=== PATIENT | female | born 1955 | race African-American/Black ===

== ENCOUNTER → 2016-05-30 | Day surgery (SDC) | payer MEDICARE, OTHER ==
--- NOTE | 2016-05-25 14:34 | Pre-Procedure Note/Attestation ---
Pre-Procedure Note/Attestation Complete Prior to Procedure Planned Procedure: bilateral Procedure Narrative: 1- Ptosis correction, upper lids 2- Entropion correction upper lids 3- Blepharoplasty, upper lids Indications for Procedure Pre-Operative Diagnosis: 1- Ptosis ,upper lids 2- Entropion, upper lids 3- Blepharochalasis and dermatochalasis upper lids Attestation I attest that I discussed the nature of the procedure; its benefits; risks and complications; and alternatives (and the risks and benefits of such alternatives ), prior to the procedure, with the patient (or the patient's legal front office representative). I attest that, if there was a reasonable possibility of needing a blood transfusion, the patient (or the patient's legal front office representative) was given the [facility] standardized written summary, pursuant to the Alvaro Allison Blood Safety Act ([place] Health and Safety Code # 1645, as amended). I attest that I re-evaluated the patient just prior to the surgery and that there has been no change in the patient's H&P, except as documented below: ISSAC ALEXANDRA May 25, 2016 14:34
[2016-05-30] VITALS (13 sets, daily range): BP systolic 139–175; BP diastolic 92–121
[~2016-05-30] VITALS: Ht 165.1 cm; Wt 63.5 kg
[~2016-05-30] MED LIST: AMITRIPTYLINE100 MG ORAL; ATIVAN1 MG ORAL; Akten 3.5% 1ml Btl BOTH EYES ONE; Akten 3.5% 1ml Btl ONE; B-12500 MC1 PO; BENICAR40 MG ORAL; BISACODYL5 MG ORAL; Bupivacaine 0.75% 30ml vial INJ ONE; CALCIUM 500-VI1 EACH PO; CYCLOBENZAPRINE10 MG ORAL; CYMBALTA30 MG ORAL; DiphenhydrAMINE 50mg/ml Inj IVP PRN; DiphenhydrAMINE 50mg/ml Inj ONE; FERROUS SULFAT325 MG ORAL; GABAPENTIN300 MG ORAL; HYDROCHLOROTHIA25 MG ORAL; LEXAPRO10 MG ORAL; LR 1000ml 1,000 ML IVLG SCH; Labetalol 5mg/ml 20ml vial IV PRN; Lidocaine 1% MPF 10mg/ml 5ml ONE; Lidocaine 2% 20mg/ml/Epi 0.005mg/ml 20ml vial ONE; MULTIVITAMINS1 EAC2 ORAL; Maxitrol Opth Oint 3.5gm BOTH EYES ONE; Midazolam 2mg/2ml Inj IVP ONE; Midazolam 2mg/2ml Inj ONE; NS Irrig 1000ml ONE; Norco 5mg/325mg tab ORAL ONE; PRILOSEC10 M1 ORAL; Povidone-Iodine 5% opth solution ONE; Propofol 10mg/ml 20ml IV ONE; Sterile Water Irrig 1000ml IRRIG ONE; TRAMADOL HCL50 MG ORAL; Tetracaine 0.5% Opth Soln ONE; Tobradex Opth Oint 3.5gm ONE; XYLOCAINE CUTAN; ZOLPIDEM TARTRA10 MG ORAL; fentaNYL 100 mcg/2 mL IV ONE; vitamin b 12 PO
--- NOTE | 2016-05-30 07:49 | Anethesia Preoperative Eval ---
Anesthesia Pre-op PMH/ROS General Date of Evaluation: May 30, 2016 Anesthesiologist: Alexys ASA Score: ASA 2 Mallampati Score Class I : Soft palate, uvula, fauces, pillars visible Class II: Soft palate, uvula, fauces visible Class III: Soft palate, base of uvula visible Class IV: Only hard plate visible Mallampati Classification: Class II Surgeon: Sandrita Diagnosis: Bilateral eyelid ptosis Surgical Procedure: Bilateral blepharoplasty Anesthesia History: none Social History: current smoker, alcohol use - h/o abuse, now resolved, drug use - h/o abuse now resolved Family History: no anesthesia problems Allergies: Coded Allergies: No Known Allergies (Unverified , 01/17/16) Medications: see eMAR Past Medical History Cardiovascular: Reports: HTN, Denies: CAD, [place], arrhythmia, other, valve dz Pulmonary: Denies: COPD, VALERIO, asthma, other Gastrointestinal/Genitourinary: Reports: GERD - gasstritis, Denies: CRI, ESRD, other Neurologic/Psychiatric: Reports: depression/anxiety, other - bipolar, Denies: CVA, TIA, dementia Endocrine: Denies: DM, hypothyroidism, other, steroids HEENT: Denies: SKAGWAY (L), SKAGWAY (R), cataract (L), cataract (R), glaucoma, other Hematology/Immune: Reports: anemia - chronic, Denies: DVT, bleeding disorder, other Musculoskeletal/Integumentary: Denies: DDD, DJD, OA, RA, edema, other PSxH Narrative: nose sx, T&A, lap mana, BSO, Left THR Anesthesia Pre-op Phys. Exam Physician Exam see chart Constitutional: other - anxious, crying Cardiovascular: RRR Respiratory: CTA Airway Exam Mallampati Score: Class II ROM: full Anesthesia Pre-op A/P Labs see chart Studies Pre-op Studies: EKG - sr Risk Assessment & Plan Assessment: ASA II Plan: MAC Status Change Before Surgery: No Pre-Antibiotics Drug: N/A MEGAN VILLATORO M.D. May 30, 2016 07:49
--- NOTE | 2016-05-30 08:36 | Immediate Post-Op Evaluation ---
Immediate Post-Op Evalulation Immediate Post-Op Evalulation Procedure: Bilateral blepharoplasty Date of Evaluation: May 30, 2016 Time of Evaluation: 13:26 IV Fluids: 700 Blood Products: 0 Estimated Blood Loss: 0 Urinary Output: 0 Blood Pressure Systolic: 161 Blood Pressure Diastolic: 97 Pulse Rate: 71 Respiratory Rate: 16 O2 Sat by Pulse Oximetry: 100 Temperature (Fahrenheit): 97.1 Pain Score (1-10): 0 Nausea: No Vomiting: No Complications 0 Patient Status: awake, reacts, patent, none Hydration Status: adequate Drug: N/A MEGAN VILLATORO M.D. May 30, 2016 08:36
--- NOTE | 2016-05-30 08:37 | 48 Hour Post Anesthesia Eval ---
Post Anesthesia Evaluation Procedure: Bilateral blepharoplasty Date of Evaluation: May 30, 2016 Blood Pressure Systolic: 159 0: 101 Pulse Rate: 70 Respiratory Rate: 16 O2 Sat by Pulse Oximetry: 100 Airway: patent Nausea: No Vomiting: No Pain Intensity: 0 Hydration Status: adequate Cardiopulmonary Status: at baseline Mental Status/LOC: patient returned to baseline Post-Anesthesia Complications: 0 Follow-up care needed: ready to discharge MEGAN VILLATORO M.D. May 30, 2016 08:37
--- NOTE | 2016-05-30 13:27 | Brief Operative Note ---
Immediate Post Operative Note Operative Note Chief Complaint: Droopy eyelids difficulty driving and tearing Pre-op Diagnosis: 1- Ptosis ,upper lids 2- Entropion, upper lids 3- Blepharochalasis and dermatochalasis upper lids Procedure: 1- Ptosis correction upper lids 2- Entropion correction upper lids 3- Blepharoplasty upper lids 4- Ectropion correction, lower lids Surgeon: Issac Remy MD. Railroad Car Letterer: None Additional Surgeons: None Anesthesiologist: Dr. Rosa Anesthesia: local, MAC Specimen: none Complications: none Condition: stable Estimated Blood Loss: minimal Drains: none Implant(s) used?: ISSAC Allen May 30, 2016 13:27
--- NOTE | 2016-05-31 03:07 | Discharge Summary ---
DATE OF ADMISSION: 05/30/2016 DATE OF DISCHARGE: 05/30/2016 REASON FOR HOSPITALIZATION: 1. Ptosis, upper lids. 2. Entropion, upper lids. 3. Dermatochalasis, upper lids. 4. Ectropion, lower lids. SURGERY PERFORMED: 1. Ptosis correction, upper lids. 2. Entropion correction, upper lids. 3. Blepharoplasty, upper lids. 4. Ectropion correction, lower lids. HOSPITAL COURSE AND TREATMENT: The patient tolerated the surgery without complications. DISCHARGE CONDITION: The patient was stable at discharge. DISCHARGE MEDICATIONS: 1. TobraDex eyedrops one drop q.i.d., both eyes. 2. Maxitrol eye ointment apply to the wound. 3. Keflex 500 mg one p.o. q.8 hours. 4. Vicodin 5 mg/300 mg one tablet p.o. q.6 hours for pain. POSTOPERATIVE ORDERS: The patient has to rest at home. No bending. No lifting. No watching TV tonight. POSTOPERATIVE FOLLOWUP: The patient will be followed in the office tomorrow morning at 9 o'clock. Charlie Remy M.D. DR: HERMINIO JOB#: [id number] CC:
--- NOTE | 2016-05-31 04:18 | Operative Note - Dictated ---
DATE OF OPERATION: 05/30/2016 FACILITY: [facility]. SURGEON: Charlie Remy M.D. JOB ANALYST: None. ANESTHESIOLOGIST: Dr. oRsa. ANESTHESIA: Monitored anesthesia care (MAC) plus local anesthesia with lidocaine 2% in both eyes. PREOPERATIVE DIAGNOSES: 1. Ptosis upper lids, both eyes. 2. Entropion upper lids, both eyes. 3. Dermatochalasis upper lids, both eyes. 4. Ectropion lower lids, both eyes. POSTOPERATIVE DIAGNOSES: 1. Ptosis upper lids, both eyes. 2. Entropion upper lids, both eyes. 3. Dermatochalasis upper lids, both eyes. 4. Ectropion lower lids, both eyes. SURGERY PERFORMED: 1. Ptosis repair, upper lids. 2. Entropion repair, upper lids. 3. Blepharoplasty, upper lids. 4. Lowe lid ectropion correction in both eyes. INDICATION FOR SURGERY: The patient is a 61-year-old lady with history of cataracts and history of Barrette's esophagus, gallstone, hypertension, malnutrition, anemia, vitamin D deficiency, lipid function, severe malnutrition, status post TPN, anxiety and depression. Social history including the patient is not smoking now but patient was smoking in the past. As I mentioned, the patient's surgical history laparoscopic cholecystectomy, total hip replacement in 2005 2007, gastric bypass and cholelithiasis. 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 Denies any tobacco products or drugs, but drinks two glasses of wine daily. She also takes Lexapro, lisinopril, lorazepam, Ambien, multivitamins, Lantus 300 mg, Norvasc, probiotic, tramadol, trazodone, vitamin B12 and vitamin C. She is complaining of droopy eyelids and upper lid hooding. She is complaining of difficulty driving because of upper lid droopiness and because of entropion of the lower lids. She is suffering from CVA, dermatochalasis, and entropion upper lids and also she has ectropion of lower lids. These problems positive dermatochalasis of skin disease with resulting changes of corneal curvature, which induces astigmatism and also cognitive of visual axis, which is interrupting her driving. The entropion of lower lids causes corneal exposure and corneal ulcer in the severity of the patient with dermatochalasis symptoms, entropion and ectropion all have clearly demonstrated . The only solution for this patient . There is no alternative for that. INFORMED CONSENT: The nature of the surgery, risks, benefits, alternatives, and potential complications were explained in detail to the patient. The potential complications including, but not limited to bleeding, infection, corneal exposure, over correction, under correction, swelling of the face, hematoma, dry eye syndrome, loss of eyelashes, loss of eyesight, loss of eyebrows, inequality of both eyes, change in vision, even loss of vision, and loss of the eye were all explained in detail to the patient. The patient voiced understanding and accepted all the complications. Then, she signed the consent form, which is in the chart. Description Of Surgery And Findings: Following that, the patient was taken to the operation room in a stable condition. Lidocaine gel 3.5% Akten was applied to the conjunctiva of both eyes. Following that, the upper lids were marked with a marking pen 10 mm above the root of the eyelashes and 10 mm below the lower part of the eyebrows. the skin was left to facilitate eye closure. IV sedation was given by the anesthesiologist, Dr. Rosa. After adequate anesthesia had been achieved, the upper lids as well as lower lids all were anesthetized with 2% lidocaine with epinephrine 1:100,0000. Following that, using a Bovie knife, the skin and subdermal tissue were dissected from the nucleus of the muscle and excised. A cuts were made into the orbicularis oculi muscle. The two fat compartment was free. The medial fat compartment was removed and temporal compartment was sculptured conservatively. Following that, the levator palpebrae superioris muscle was dissected through the aponeurosis of the muscle. The aponeurosis of the muscle was tacked about 4 mm in each side and stitched with 6-0 suture in each side. Then, the palpebral fissure was compared and both were equal. Following that, the 6-0 Vicryl were stitched and the suture was closed. Following that, a wedge groove was made 3 mm above the root of the upper eyelid lashes. Following that, plate was inside the groove was removed with a Vannas scissor. Following that, the lids of the groove was stitched with 6-0 Vicryl and border of the eyelid was rotated upward and lashes were turned from downwards to upwards. The orbicularis oculi muscle was then freed and hemostasis was performed and all the stitches were . Following that, the lower lid was anesthetized with 2% lidocaine. Following that, a keratotomy was performed in both sides. Following that, in each side with 6-0 Vicryl. Following that, the skin was stitched in the upper lid and lower lid with 6-0 Vicryl . The patient tolerated the surgery without complications. At the end of the surgery, the wound was covered with TobraDex ointment and applied to the cornea. Following that, the patient was transferred to the recovery room. In the recovery room, cold compress was applied to the wound. The wound was checked for bleeding. There was no bleeding. Postoperative orders and directions were given to the patient. The patient will be discharged home upon stabilization. The patient will be followed in my office tomorrow morning at 9:00. Charlie Remy M.D. DR: HERMINIO JOB#: [id number] CC:
== END | disposition home or self-care (01) ==
LOC: SUR 08:21
DX: H02.403 Unspecified ptosis of bilateral eyelids (principal); H02.034 Senile entropion of left upper eyelid; H02.031 Senile entropion of right upper eyelid; H02.834 Dermatochalasis of left upper eyelid; H02.831 Dermatochalasis of right upper eyelid; H02.132 Senile ectropion of right lower eyelid; H02.135 Senile ectropion of left lower eyelid; I10 Essential (primary) hypertension; F32.9 Major depressive disorder, single episode, unspecified; F41.9 Anxiety disorder, unspecified; D64.9 Anemia, unspecified; E55.9 Vitamin D deficiency, unspecified; K22.70 Barrett's esophagus without dysplasia; K21.9 Gastro-esophageal reflux disease without esophagitis; K29.70 Gastritis, unspecified, without bleeding; E43 Unspecified severe protein-calorie malnutrition; Z98.84 Bariatric surgery status; Z87.891 Personal history of nicotine dependence; Z96.649 Presence of unspecified artificial hip joint; Z90.49 Acquired absence of other specified parts of digestive tract
CPT/HCPCS: 15823; 67917; 67924; J0690; J1200; J2250; J2704; J3010; J3490; 94003; 94150

== ENCOUNTER 2019-01-22 13:40 | Outpatient (CLI) | payer MEDICARE, OTHER ==
[~2019-01-22 13:40] MED LIST changes: -Akten 3.5% 1ml Btl BOTH EYES ONE; -Akten 3.5% 1ml Btl ONE; -Bupivacaine 0.75% 30ml vial INJ ONE; -DiphenhydrAMINE 50mg/ml Inj IVP PRN; -DiphenhydrAMINE 50mg/ml Inj ONE; -LR 1000ml 1,000 ML IVLG SCH; -Labetalol 5mg/ml 20ml vial IV PRN; -Lidocaine 1% MPF 10mg/ml 5ml ONE; -Lidocaine 2% 20mg/ml/Epi 0.005mg/ml 20ml vial ONE; -Maxitrol Opth Oint 3.5gm BOTH EYES ONE; -Midazolam 2mg/2ml Inj IVP ONE; -Midazolam 2mg/2ml Inj ONE; -NS Irrig 1000ml ONE; -Norco 5mg/325mg tab ORAL ONE; -Povidone-Iodine 5% opth solution ONE; -Propofol 10mg/ml 20ml IV ONE; -Sterile Water Irrig 1000ml IRRIG ONE; -Tetracaine 0.5% Opth Soln ONE; -Tobradex Opth Oint 3.5gm ONE; -fentaNYL 100 mcg/2 mL IV ONE
[2019-01-22 14:34] LABS: BASOPHILS % (AUTO) 0.8 % (0.0-2.0); EOSINOPHILS % (AUTO) 0.2 % (0.0-3.0); HEMATOCRIT 37.4 % (37.0-47.0); HEMOGLOBIN 11.9 G/DL (12.0-16.0); LYMPHOCYTES % (AUTO) 16.8 % (20.0-45.0); MEAN CORPUSCULAR VOLUME 92 FL (80-99); MONOCYTES % (AUTO) 8.8 % (1.0-10.0); NEUTROPHILS % (AUTO) 73.4 % (45.0-75.0); PLATELET COUNT 187 K/UL (150-450); RED BLOOD COUNT 4.07 M/UL (4.20-5.40); RED CELL DISTRIBUTION WIDTH 14.1 % (11.6-14.8); WHITE BLOOD COUNT 6.9 K/UL (4.8-10.8)
[2019-01-22 14:39] LABS: INR 1.1 (0.9-1.1)
[2019-01-22 14:42] LABS: ALANINE AMINOTRANSFERASE 17 U/L (12-78); ALBUMIN 3.4 G/DL (3.4-5.0); ALBUMIN/GLOBULIN RATIO 1.1 (1.0-2.7); ALKALINE PHOSPHATASE 90 U/L (46-116); ANION GAP 8 mmol/L (5-15); ASPARTATE AMINO TRANSFERASE 24 U/L (15-37); BILIRUBIN,TOTAL 0.7 MG/DL (0.2-1.0); BLOOD UREA NITROGEN 10 mg/dL (7-18); CALCIUM 9.1 MG/DL (8.5-10.1); CARBON DIOXIDE 27 MMOL/L (21-32); CHLORIDE 110 MMOL/L (98-107); CREATININE 1.1 MG/DL (0.55-1.30); PHOSPHORUS 3.9 MG/DL (2.5-4.9); POTASSIUM 3.7 MMOL/L (3.5-5.1); SODIUM 145 MMOL/L (136-145)
[2019-01-22 14:46] LABS: APPEARANCE,URINE CLEAR; BILIRUBIN, URINE NEGATIVE (NEGATIVE); COLOR,URINE PALE YELLOW; GLUCOSE, URINE (UA) NEGATIVE (NEGATIVE); KETONES,URINE NEGATIVE (NEGATIVE); LEUKOCYTE ESTERASE ,URINE NEGATIVE (NEGATIVE); NITRITE,URINE NEGATIVE (NEGATIVE); PH,URINE 5 (4.5-8.0); PROTEIN,URINE NEGATIVE (NEGATIVE); UROBILINOGEN,URINE NORMAL MG/DL (0.0-1.0)
--- NOTE | 2019-01-22 16:02 | Diagnostic Imaging Report ---
Indication: Dyspnea Comparison: None 2 views of the chest obtained. Findings: No definite infiltrate or pulmonary vascular congestion identified. The heart is borderline enlarged. The aorta is mildly enlarged consistent with atherosclerotic vascular disease. The bones are osteopenic. Extensive surgical clips noted in the upper abdomen. Impression: No acute disease
== END 2019-01-22 15:40 | disposition home or self-care (01) ==
LOC: RAD 13:40
DX: Z01.818 Encounter for other preprocedural examination (principal); R06.00 Dyspnea, unspecified; M85.80 Other specified disorders of bone density and structure, unspecified site
CPT/HCPCS: 36415; 71046; 80053; 81001; 83735; 84100; 85025; 85610; 85730; 87081; 87086

== ENCOUNTER 2019-02-25 05:10 | Inpatient (IN) | payer MEDICARE, OTHER ==
[~2019-02-25] VITALS: Ht 167.6 cm; Wt 68.5 kg
[2019-02-25] VITALS (13 sets, daily range): BP systolic 105–134; BP diastolic 73–94
[~2019-02-25 05:10] MED LIST changes: +ACETAMINOPHEN-1 EAC1 ORAL; +AVAPRO75 MG ORAL; +BUPROPION HCL75 MG PO; +NEXIUM40 MG ORAL; +QUESTRAN POWDER4 GM ORAL; +SYSTANE COMPLET10 ML OP; +VIIBRYD20 MG PO; +VIT PO; +ZYRTEC10 MG ORAL
[2019-02-25] MEDS ORDERED: ceFAZolin 1gm IVPB IVPB ONE ×2 (06:00)
[2019-02-25] MEDS ORDERED: celeBREX 200mg Cap **SURGERY PATIENTS ONLY ORAL ONE (06:00)
[2019-02-25] MEDS ORDERED: oxyCONTIN 20mg tab ORAL ONE (06:00)
[2019-02-25] MEDS ORDERED: EPINEPHrine 1mg/1ml Amp ONE (06:56)
[2019-02-25] MEDS ORDERED: Bupivacaine 0.5% Inj 30 ml vial INJ ONE (06:56)
[2019-02-25] MEDS ORDERED: cloNIDine 1000mcg/10ml inj ONE (06:56)
[2019-02-25] MEDS ORDERED: Atropine Sulfate 0.4mg/ml inj IVP PRN (07:00)
[2019-02-25] MEDS ORDERED: LR 1000ml 1,000 ML IVLG SCH (07:00)
[2019-02-25] MEDS ORDERED: Ketorolac 30mg Inj IV PRN ×2 (07:00)
[2019-02-25] MEDS ORDERED: Meperidine 50mg/ml Inj(FOR RIGORS ONLY) IVP PRN (07:00)
[2019-02-25] MEDS ORDERED: LORazepam Inj 2mg/ml 1ml IV PRN (07:00)
[2019-02-25] MEDS ORDERED: fentaNYL 100 mcg/2 mL IV PRN (07:00)
[2019-02-25] MEDS ORDERED: HYDROcodone/Acetamin 7.5/325 tab ORAL PRN ×2 (07:00→08:00)
[2019-02-25] MEDS ORDERED: Hydromorphone 0.5mg/0.5ml inj IVP PRN (07:00)
[2019-02-25] MEDS ORDERED: Metoclopramide 10mg/2ml Inj IVP PRN (07:00)
[2019-02-25] MEDS ORDERED: HYDROcodone/Acetamin 5/325 tab ORAL PRN (07:00)
[2019-02-25] MEDS ORDERED: Midazolam 2mg/2ml Inj IVP PRN (07:00)
[2019-02-25] MEDS ORDERED: DiphenhydrAMINE 50mg/ml Inj IVP PRN (07:00)
[2019-02-25] MEDS ORDERED: oxyCODONE HCL/Acetaminophen 5/325mg ORAL PRN (07:00)
[2019-02-25] MEDS ORDERED: Labetalol 5mg/ml 20ml vial IV PRN (07:00)
--- NOTE | 2019-02-25 07:07 | Anethesia Preoperative Eval ---
Anesthesia Pre-op PMH/ROS General Date of Evaluation: Feb 25, 2019 Time of Evaluation: 07:41 Anesthesiologist: Jessica ASA Score: ASA 3 Mallampati Score Class I : Soft palate, uvula, fauces, pillars visible Class II: Soft palate, uvula, fauces visible Class III: Soft palate, base of uvula visible Class IV: Only hard plate visible Mallampati Classification: Class II Surgeon: Lola Diagnosis: R Knee Pain Surgical Procedure: R Knee total Arthroplasty Anesthesia History: none Family History: no anesthesia problems Allergies: Coded Allergies: No Known Allergies (Unverified , 01/17/16) Medications: see eMAR Patient NPO?: Yes NPO Date: Feb 24, 2019 NPO Time: 1999 Past Medical History Cardiovascular: Reports: HTN Gastrointestinal/Genitourinary: Reports: GERD, other - Hiatal Hernia Neurologic/Psychiatric: Reports: other - Bipolar HEENT: Reports: cataract (L), cataract (R) Hematology/Immune: Reports: anemia PSxH Narrative: Laparoscopic Cholecystectomy, Cataracts, L CHARU, B Ovary Sx Anesthesia Pre-op Phys. Exam Physician Exam Last Vital Signs Date Time Temp Pulse Resp B/P (MAP) Pulse Ox O2 Delivery O2 Flow Rate FiO2 02/25/19 05:56 Room Air 02/25/19 05:42 97.7 84 18 134/94 (107) 97 Constitutional: NAD Neurologic: CN 2-12 intact Cardiovascular: RRR Respiratory: CTA Gastrointestinal: S/NT/ND Airway Exam Mallampati Score: Class II MO: full ROM: full Teeth: missing, intact Anesthesia Pre-op A/P Risk Assessment & Plan Assessment: ASA 3 Plan: GA, Spinal ,SED Status Change Before Surgery: No Pre-Antibiotics Dru Grams Ancef IV Given Within 1 Hr of Incision: No Time Given: 08:16 Rod Lopez MD Feb 25, 2019 07:07
--- NOTE | 2019-02-25 07:09 | Immediate Post-Op Evaluation ---
Immediate Post-Op Evalulation Immediate Post-Op Evalulation Procedure: R Knee total Arthroplasty Date of Evaluation: Feb 25, 2019 Time of Evaluation: 10:38 IV Fluids: 500 LR Blood Products: 0 Estimated Blood Loss: 50 Urinary Output: 200 Blood Pressure Systolic: 111 Blood Pressure Diastolic: 76 Pulse Rate: 83 Respiratory Rate: 16 O2 Sat by Pulse Oximetry: 100 Temperature (Fahrenheit): 97.5 Pain Score (1-10): 1 Nausea: No Vomiting: No Complications 0 Patient Status: awake, reacts, patent, none Hydration Status: adequate Dru Grams Ancef IV Given Within 1 Hr of Incision: Yes Time Given: 08:16 Rod Lopez MD Feb 25, 2019 07:08
[2019-02-25] MEDS ORDERED: Alfentanil 2ml Inj ONE (07:11)
[2019-02-25] MEDS ORDERED: Lidocaine 1% MPF 10mg/ml 5ml ONE (07:12)
[2019-02-25] MEDS ORDERED: Sodium Chloride 10ml vial INJ ONE (07:12)
[2019-02-25] MEDS ORDERED: Propofol 200mg/20ml IV ONE (07:12)
[2019-02-25] MEDS ORDERED: Dexamethasone 4mg/ml vial ONE (07:12)
[2019-02-25] MEDS ORDERED: Bacitracin 50000 Units Vial ONE (07:20)
[2019-02-25] MEDS ORDERED: Tranexamic Acid 100 ML IVPB ONE (07:30)
[2019-02-25] MEDS ORDERED: HYDROmorphone 1mg/ml Carpuject SUBQ PRN (08:00)
[2019-02-25] MEDS ORDERED: NS Irrig 1000ml ONE (08:00)
[2019-02-25] MEDS ORDERED: Sterile Water For Irrig 2000ml IRRIG ONE (08:00)
[2019-02-25] MEDS ORDERED: Sterile Water Irrig 1000ml IRRIG ONE (08:00)
[2019-02-25] MEDS ORDERED: LR 1000ml ONE (08:00)
[2019-02-25] MEDS ORDERED: NS Irrig 2000ml IRRIG ONE (08:00)
[2019-02-25] MEDS ORDERED: Milk of Magnesia 30ml Ud ORAL PRN (08:00)
--- NOTE | 2019-02-25 08:00 | Pre-Procedure Note/Attestation ---
Pre-Procedure Note/Attestation Complete Prior to Procedure Planned Procedure: right Procedure Narrative: rt total knee arthroplasty Indications for Procedure Pre-Operative Diagnosis: rt knee arthritis Attestation I attest that I discussed the nature of the procedure; its benefits; risks and complications; and alternatives (and the risks and benefits of such alternatives ), prior to the procedure, with the patient (or the patient's legal territory sales representative). I attest that, if there was a reasonable possibility of needing a blood transfusion, the patient (or the patient's legal territory sales representative) was given the [facility] standardized written summary, pursuant to the Alvaro Argos Blood Safety Act ([place] Health and Safety Code # 1645, as amended). I attest that I re-evaluated the patient just prior to the surgery and that there has been no change in the patient's H&P, except as documented below: none Vishnu Daivla MD Feb 25, 2019 08:00
[2019-02-25] MEDS ORDERED: Flumazenil 0.1mg/ml 5ml Inj IV ONE (10:02)
--- NOTE | 2019-02-25 10:09 | Brief Operative Note ---
Immediate Post Operative Note Operative Note Chief Complaint: rt knee pain Pre-op Diagnosis: rt knee arthritis Procedure: rt total knee arthroplasty Post-op Diagnosis: same as pre-op Findings: consistent w/pre-op dx studies Surgeon: md markos Nutrition Representative: zuleima parker Anesthesiologist: md jony Anesthesia: general Specimen: yes Complications: none Condition: stable Fluids: ns Estimated Blood Loss: minimal Drains: none Implant(s) used?: Yes - Tricia Melton Feb 25, 2019 10:09
--- NOTE | 2019-02-25 10:25 | NUR ---
NURSE NOTES: rec'd from pacu sp rtka. drowsy but arousable. rt knee dressing dry and intact. with immobilizer on. ice pack on. vs taken no c/o pain. with sensation on rt upper thigh. in no distress.
[2019-02-25] MEDS: D5 1/2NS w/KCl 20mEq 1,000 ML IV SCH (13:05)
[2019-02-25] MEDS: Docusate 100mg cap ORAL SCH ×2 (13:08→17:21)
--- NOTE | 2019-02-25 13:17 | Diagnostic Imaging Report ---
Indications: Postoperative Technique: Two views of the right knee Comparison: None Findings: Two postoperative views of the right knee demonstrate total knee arthroplasty, good anatomic alignment of the prosthesis. . There is postsurgical soft tissue air. Impression: Postoperative right knee, no unusual features.
--- NOTE | 2019-02-25 13:30 | NUR ---
NURSE NOTES: Brown REDDING CALLED RE PT'S RECONCILIATION MED LIST. LEFT MESSAGE TO RETURN CALL.
--- NOTE | 2019-02-25 13:39 | NUR ---
CASE MANAGEMENT:REVIEW 63 YR OLD FEMALE HERE FOR ELECTIVE SURGERY SI: RT KNEE ARTHRITIS 97.7 84 18 134/94 97% ON RA IS: TO SURGERY FOR RT TOTAL KNEE ARTHROPLASTY IV ANCEF Q8HRS IVF@75/HR DILAUDID SQ Q4HRS PRN : MED/SURG STATUS 3 EAST *INTERQUAL CRITERIA MET
[2019-02-25] MEDS ORDERED: Zolpidem 5mg tab ORAL PRN (14:30)
--- NOTE | 2019-02-25 15:10 | NUR ---
PT EVALUATION NOTE Patient seen for initial evaluation, see complete evaluation for details. Patient presents with impaired functional mobility s/p R TKA with general and spinal anesthesia. Patient currently with no AROM BLEs except for min AROM L toes. Patient required mod/max assist to come to sitting at the EOB, c/o dizziness in sitting, returned to bed. Patient unable to stand due to lack of motor strength BLEs. Patient will benefit from skilled inpatient PT intervention to address strength, ROM, balance and safety for improved functional mobility. Recommend discharge to ARU/SNF for further rehab once medically cleared by MD. Recommend FWW for ambulation. Addendum: 02/25/19 at 1540 by GRANT HERRERA PT Amended: Links added.
[2019-02-25] MEDS: ceFAZolin sod 1 GM in D5W 55 ML IV SCH ×2 (15:36→23:57)
--- NOTE | 2019-02-25 17:15 | Operative Note - Dictated ---
DATE OF OPERATION: 02/25/2019 PREOPERATIVE DIAGNOSIS: Right knee end-stage arthritis with valgus deformity. POSTOPERATIVE DIAGNOSIS: Right knee end-stage arthritis with valgus deformity. PROCEDURE: Right total knee arthroplasty using a Kushal Persona system, size 8 narrow femur, size E tibial plate, 32 mm all-poly patella and 10 mm tibial poly insert all cemented. SURGEON: Vishnu Davila M.D. GYMNASTICS COACH OR INSTRUCTOR: Tricia Dueñas PA-C. ANESTHESIOLOGIST: Rod Lopez M.D. ANESTHESIA: Spinal anesthesia. ESTIMATED BLOOD LOSS: Less than 100 mL. TOURNIQUET TIME: 58 minutes. COMPLICATIONS: None. BRIEF HISTORY: The patient is a pleasant 63-year-old female who has had ongoing right knee pain, decreased range of motion, stiffness, and valgus deformity. She had a hard time getting around. After she failed nonoperative treatment and after full discussion of risks and benefits of the surgery and the complications associated with it including infection, bleeding, neurovascular complication, possibility of DVT, PEs, loss of motion, stiffness, pain despite surgery, and other complications that may arise, she opted for surgical treatment as described above. OPERATIVE PROCEDURE: The patient was brought to the operating room and was placed supine. All pressure points well padded. Spinal anesthesia was induced and the right leg was prepped and draped in usual sterile fashion. Right leg was exsanguinated and tourniquet was inflated to 275 mmHg. The time-out was performed prior to putting the tourniquet up and preoperative antibiotics and tranexamic acid was given prior to putting the tourniquet up. At this point, the standard anterior approach to the knee was undertaken. The incision was taken through subcutaneous tissue. Medial parapatellar arthrotomy was performed and limited medial release was performed. The patella was everted and fat pad was removed. The ACL and PCL were resected and menisci were resected. At this point, the intramedullary entry into the femur was obtained. The intramedullary guide was placed in and a distal femoral cut in 6 degrees of valgus was made. At this point, the sizing was performed and care was given to perform 3 degrees of external rotation using transepicondylar axis. Sizing was performed and size 8 appeared to be the right size. Therefore, while putting the femoral sizing guide in 3 degrees of external rotation, the drill holes were made on for the spikes on the cutting guide. At this point, the measurement guide was removed and a size 8 femoral cutting guide was applied in 3 degrees of external rotation. This was fixed with pins. At this point, anterior, posterior, and chamfer cuts were performed without any complication. This provided excellent cut and there was no notching. Once this was completed, a trial of femur was performed and the fit was excellent. However, the femur was slightly wide and therefore a narrow Persona was used at the time of implantation of the actual implant. At this point, the PEG holes were drilled and care was given to the tibia. Appropriate retractors were placed posteriorly, medially, and laterally. The remainder of the meniscus were removed. The extramedullary guide was applied and using the anterior tibial crest as the guide, anatomical access was recreated. 2 mm was taken from the most lateral side, which was the most involved side. At this point, while recreating the anatomical axis, the tibial cut was performed without any complication. Once this was completed, the flexion-extension gap was checked and appeared to be good except on the lateral side it was tight. Therefore at this point, a limited lateral release was performed releasing the IT band and posterior lateral aspect of the knee. Care was given not to go too posteriorly and stay away from peroneal nerve. Once this was completed, the flexion-extension gap was checked again and appeared to be excellent. At this point, the sizing of the tibia was performed and size E appeared to be the right size. The tibia was then punched while placing in 3 degrees of external rotation. Once this was completed, the care was given to the patella. The patella was everted, towel clamps were applied, measurements were made, and the patella was 23 mm. At this point, a standard cut of the patella was performed and 13 mm patella was remaining. Sizing was performed and 32 mm patella appeared to be the right size. At this point, the pegs for the 32 mm patella was then drilled while medializing the patella slightly. Once this was completed, wounds were thoroughly irrigated using copious amount of fluid. All trial components were applied and a 10 mm poly was applied and there was full extension, full flexion, excellent stability at 0, 30 degrees, 45 degrees, and 90 degrees of flexion, and there was excellent patellofemoral articulation. Wounds were thoroughly irrigated using copious amount of fluid. The trial components were removed and the cement was mixed. The tibial components, femoral component, and patella components were all cemented in and were held under compression until cement hardened. All excess cement was removed. Once this was completed, trialing was performed and 10 mm poly appeared to be the right size with full range of motion, stability and patellofemoral tracking as described previously. Therefore, after thoroughly irrigating the knee with copious amount of Simpulse irrigation, the 10 mm polyethylene was then locked in without any complication. The knee was then reduced and range of motion and tracking and stability were checked and appeared to be excellent as described previously. The wounds were thoroughly irrigated using copious amount of fluid. The tourniquet was deflated. There was minimal bleeding. The extensor mechanism was closed using #1 Vicryl suture. Subcutaneous tissue was closed using 2-0 Vicryl suture. Skin was closed using 3-0 Monocryl suture. Dermabond was applied and sterile dressing was applied. The patient was taken to recovery room in stable condition. All lap counts and instrument counts were correct. Vishnu Davila M.D. DR: NEREIDA JOB#: [id number] CC: SAM
[2019-02-25] MEDS: Cholestyramine 4gm Pkt ORAL SCH (17:21)
--- NOTE | 2019-02-25 17:39 | Internal Med Progress Note ---
Subjective Date of Service: Feb 25, 2019 Physician Name MechelleHans Attending Physician Vishnu Davila MD Current Medications Medications (Trade) Dose Ordered Sig/Samara Route PRN Reason Start Time Stop Time Status Last Admin Dose Admin Acetaminophen (Tylenol) 650 mg Q4H PRN ORAL temp>100.2 or headache 02/25/19 08:00 03/27/19 07:59 Acetaminophen/ Hydrocodone Bitart ([place] 5/325) 2 tab Q4H PRN ORAL pain scores 4-10 02/25/19 08:00 03/04/19 07:59 Acetaminophen/ Hydrocodone Bitart ([place] 7.5/325) 1 tab Q4H PRN ORAL Mild Pain (Pain Scale 1-3) 02/25/19 08:00 03/04/19 07:59 Aspirin (ASA) 325 mg BID ORAL 02/25/19 18:00 03/27/19 17:59 02/25/19 17:21 Bupropion HCl (Wellbutrin) 75 mg Q12HR ORAL 02/25/19 21:00 03/27/19 20:59 Cefazolin Sodium 1 gm/Dextrose 55 ml @ 110 mls/hr Q8H IV 02/25/19 16:00 02/26/19 00:29 02/25/19 15:36 Celecoxib (CeleBREX) 200 mg DAILY ORAL 02/26/19 09:00 03/28/19 08:59 Cetirizine HCl (ZyrTEC) 10 mg BEDTIME ORAL 02/25/19 21:00 03/27/19 20:59 Cholestyramine Resin (Questran) 4 gm THREE TIMES A DAY ORAL 02/25/19 18:00 03/27/19 17:59 02/25/19 17:21 Dextrose/ Electrolytes 1,000 ml @ 75 mls/hr [id number] IV 02/25/19 13:00 03/27/19 12:59 02/25/19 13:05 Docusate Sodium (Colace) 100 mg THREE TIMES A DAY ORAL 02/25/19 13:00 03/27/19 12:59 02/25/19 17:21 Ferrous Sulfate (Feosol) 325 mg THREE TIMES A DAY ORAL 02/25/19 13:00 03/27/19 12:59 02/25/19 17:21 Hydromorphone HCl (Dilaudid) 1 mg Q4H PRN SUBQ Mild Pain (Pain Scale 1-3) 02/25/19 08:00 03/04/19 07:59 Hydromorphone HCl (Dilaudid) 2 mg Q4H PRN SUBQ Moderate Pain (Pain Scale 4-6) 02/25/19 08:00 03/04/19 07:59 Lorazepam (Ativan) 1 mg BEDTIME ORAL 02/25/19 21:00 03/04/19 20:59 Losartan Potassium (Cozaar) 25 mg DAILY ORAL 02/26/19 09:00 03/28/19 08:59 Magnesium Hydroxide (Mom) 30 ml DAILYPRN PRN ORAL Constipation 02/25/19 08:00 03/27/19 07:59 Non-Formulary Medication (Non-Formulary Med) 1 ea DAILY ORAL 02/26/19 09:00 03/28/19 08:59 UNV Ondansetron HCl (Zofran) 4 mg Q6H PRN IVP Nausea & Vomiting 02/25/19 08:00 03/27/19 07:59 Oxycodone HCl (OxyCONTIN) 20 mg EVERY 12 HOURS ORAL 02/25/19 21:00 03/04/19 20:59 Pantoprazole (Protonix) 40 mg DAILY ORAL 02/26/19 09:00 03/28/19 08:59 Temazepam (Restoril) 7.5 mg HSPRN PRN ORAL Insomnia 02/25/19 15:00 03/04/19 07:59 Vitamin D (Vitamin D) 5,000 intlu DAILY ORAL 02/26/19 09:00 03/28/19 08:59 Allergies: Coded Allergies: No Known Allergies (Unverified , 01/17/16) ROS Limited/Unobtainable: No Constitutional: Reports: no symptoms HEENT: Reports: no symptoms Cardiovascular: Reports: no symptoms Respiratory: Reports: no symptoms Gastrointestinal/Abdominal: Reports: no symptoms Genitourinary: Reports: no symptoms Neurologic/Psychiatric: Reports: no symptoms Subjective 63 YO F admitted with osteoarthritis right knee. S/P total right knee arthroplasty 02/25/19. Cover for Int Kp-Dr Sanchez Objective Last Vital Signs Date Time Temp Pulse Resp B/P (MAP) Pulse Ox O2 Delivery O2 Flow Rate FiO2 02/25/19 16:00 97.5 86 20 105/74 (84) 98 02/25/19 11:10 Nasal Cannula 3 General Appearance: WD/WN, no apparent distress, alert EENT: PERRL/EOMI, normal ENT inspection Neck: non-tender, normal alignment, supple, normal inspection Cardiovascular: normal peripheral pulses, normal rate, regular rhythm, no gallop/murmur, no JVD Respiratory/Chest: chest wall non-tender, lungs clear, normal breath sounds, no respiratory distress, no accessory muscle use Abdomen: normal bowel sounds, non tender, soft, no organomegaly, no mass Extremities: normal range of motion, non-tender 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
--- NOTE | 2019-02-25 18:57 | NUR ---
NURSE NOTES: ASSISTED TO THE BSC . VOIDED 1000CC. THEN BACK TO BED. CPM MACHINE REAPPLIED TO RT KNEE 0-60. ICE PACK TO RT KNEE. PT IN NO ACUTE DISTRESS.
--- NOTE | 2019-02-25 19:00 | NUR ---
NURSE NOTES: Received a report from WEI Benson. Pt is in stable condition. AAOX4. Able to make needs known. On room air. No c/o pain/discomfort. IV site is patent and intact. Bed in lowest position. Bed alarm is on. Will continue to monitor.
[2019-02-25] MEDS: BuPROPion 75mg Tab ORAL SCH (20:18)
[2019-02-25] MEDS: oxyCONTIN 20mg tab ORAL SCH (20:19)
[2019-02-25] MEDS: LORazepam 1mg tab ORAL SCH (20:19)
[2019-02-26] VITALS (9 sets, daily range): BP systolic 83–125; BP diastolic 55–85
[2019-02-26] MEDS: D5 1/2NS w/KCl 20mEq 1,000 ML IV SCH ×3 (02:10→17:14)
[2019-02-26 05:56] LABS: BASOPHILS % (AUTO) 0.4 % (0.0-2.0); EOSINOPHILS % (AUTO) 0.1 % (0.0-3.0); HEMATOCRIT 33.7 % (37.0-47.0); HEMOGLOBIN 10.8 G/DL (12.0-16.0); LYMPHOCYTES % (AUTO) 15.8 % (20.0-45.0); MEAN CORPUSCULAR VOLUME 90 FL (80-99); MONOCYTES % (AUTO) 17.4 % (1.0-10.0); NEUTROPHILS % (AUTO) 66.4 % (45.0-75.0); PLATELET COUNT 185 K/UL (150-450); RED BLOOD COUNT 3.75 M/UL (4.20-5.40); RED CELL DISTRIBUTION WIDTH 14.3 % (11.6-14.8); WHITE BLOOD COUNT 6.5 K/UL (4.8-10.8)
--- NOTE | 2019-02-26 07:20 | NUR ---
HAND-OFF: Report given to WEI Benson.
--- NOTE | 2019-02-26 07:40 | Orthopedic Progress Note ---
Orthopedic - Progress Note Subjective Symptoms: c/o post-op knee pain Additional Comments Able to get up with assistance. Pain under control. Objective Last 24 Hour Vital Signs Date Time Temp Pulse Resp B/P (MAP) Pulse Ox O2 Delivery O2 Flow Rate FiO2 02/26/19 03:59 97.3 90 18 119/65 (83) 95 02/26/19 00:27 98.2 02/26/19 00:00 98.2 76 19 125/82 (96) 96 02/25/19 21:00 Room Air 02/25/19 20:49 98.0 02/25/19 20:00 98.0 95 18 114/79 (91) 96 02/25/19 16:00 97.5 86 20 105/74 (84) 98 02/25/19 13:30 97.4 80 18 105/74 (84) 99 02/25/19 11:30 97.5 81 20 109/73 (85) 99 02/25/19 11:10 97.2 77 15 110/74 100 Nasal Cannula 3 02/25/19 11:05 78 16 109/74 100 Nasal Cannula 3 02/25/19 10:55 77 17 109/73 100 Nasal Cannula 3 02/25/19 10:45 84 18 110/76 100 Nasal Cannula 3 02/25/19 10:40 77 15 119/74 100 Nasal Cannula 3 02/25/19 10:35 78 14 108/74 100 Simple Mask 6 02/25/19 10:30 Nasal Cannula 2.0 02/25/19 10:30 98.0 81 18 106/75 (85) 99 02/25/19 10:27 97.5 83 16 111/76 100 Simple Mask 6 02/25/19 10:26 83 16 100 Intake and Output 02/25/19 02/26/19 18:59 06:59 Intake Total 1755 ml 1380 ml Output Total 1200 ml Balance 555 ml 1380 ml Intake Oral 900 ml 480 ml IV Total 855 ml 900 ml Output Urine Total 1150 ml Estimated Blood Loss 50 ml # Voids 1 2 Laboratory Tests Test 02/26/19 05:26 White Blood Count 6.5 K/UL (4.8-10.8) Red Blood Count 3.75 M/UL (4.20-5.40) L Hemoglobin 10.8 G/DL (12.0-16.0) L Hematocrit 33.7 % (37.0-47.0) L Mean Corpuscular Volume 90 FL (80-99) Mean Corpuscular Hemoglobin 28.9 PG (27.0-31.0) Mean Corpuscular Hemoglobin Concent 32.1 G/DL (32.0-36.0) Red Cell Distribution Width 14.3 % (11.6-14.8) Platelet Count 185 K/UL (150-450) Mean Platelet Volume 7.3 FL (6.5-10.1) Neutrophils (%) (Auto) 66.4 % (45.0-75.0) Lymphocytes (%) (Auto) 15.8 % (20.0-45.0) L Monocytes (%) (Auto) 17.4 % (1.0-10.0) H Eosinophils (%) (Auto) 0.1 % (0.0-3.0) Basophils (%) (Auto) 0.4 % (0.0-2.0) Wound: clean, dry, intact Drains: none Neuro Status: normal Vascular Status: normal Assessment Post-op Diagnosis right TKA POD1 Plan Plan: PT, pain management, discharge plan Additional Comments Anticipate discharge home, possibly tomorrow. Vishnu Davila MD Feb 26, 2019 07:40
--- NOTE | 2019-02-26 07:55 | NUR ---
NURSE NOTES: AWAKE/ALERT. RT KNEE DRESSING DRY AND INTACT. CIRCULATION GOOD. IMMOBILIZER ON. ICE PACK ON. PAIN SCALE 9/10. MEDICATED WITH DILAUDID 2MG SUBQ ORDERED. IN NO ACUTE DISTRESS.
[2019-02-26] MEDS: Docusate 100mg cap ORAL SCH ×3 (08:34→17:15)
[2019-02-26] MEDS: Vitamin D 1000 IU Tab ORAL SCH (08:35)
[2019-02-26] MEDS: Cholestyramine 4gm Pkt ORAL SCH ×3 (08:36→17:16)
[2019-02-26] MEDS: celeBREX 200mg Cap **SURGERY PATIENTS ONLY ORAL SCH (08:36)
[2019-02-26] MEDS: oxyCONTIN 20mg tab ORAL SCH ×2 (08:36→20:04)
[2019-02-26] MEDS: BuPROPion 75mg Tab ORAL SCH ×2 (08:36→20:03)
[2019-02-26] MEDS ORDERED: Losartan 25mg tab ORAL SCH (09:00)
[2019-02-26] MEDS: HYDROcodone/Acetamin 5/325 tab ORAL PRN (10:25)
--- NOTE | 2019-02-26 10:25 | NUR ---
NURSE NOTES: DR Nicci REDDING CALLED RE: PT C/O ITCHING. LEFT MESSAGE TO RETURN CALL.
--- NOTE | 2019-02-26 10:38 | NUR ---
DISCHARGE PLANNING PATIENT HAS BEEN REFERRED TO [facility] AWAIT ACCEPTANCE DISCHARGE PLAN IS FOR SUNDAY
--- NOTE | 2019-02-26 10:51 | Internal Med Progress Note ---
Subjective Date of Service: Feb 26, 2019 Physician Name Min,Hans Attending Physician Vishnu Davila MD Current Medications Medications (Trade) Dose Ordered Sig/Samara Route PRN Reason Start Time Stop Time Status Last Admin Dose Admin Acetaminophen (Tylenol) 650 mg Q4H PRN ORAL temp>100.2 or headache 02/25/19 08:00 03/27/19 07:59 Acetaminophen/ Hydrocodone Bitart ([place] 5/325) 2 tab Q4H PRN ORAL pain scores 4-10 02/25/19 08:00 03/04/19 07:59 02/26/19 10:25 Acetaminophen/ Hydrocodone Bitart ([place] 7.5/325) 1 tab Q4H PRN ORAL Mild Pain (Pain Scale 1-3) 02/25/19 08:00 03/04/19 07:59 Aspirin (ASA) 325 mg BID ORAL 02/25/19 18:00 03/27/19 17:59 02/26/19 08:34 Bupropion HCl (Wellbutrin) 75 mg Q12HR ORAL 02/25/19 21:00 03/27/19 20:59 02/26/19 08:36 Celecoxib (CeleBREX) 200 mg DAILY ORAL 02/26/19 09:00 03/28/19 08:59 02/26/19 08:36 Cetirizine HCl (ZyrTEC) 10 mg BEDTIME ORAL 02/25/19 21:00 03/27/19 20:59 02/25/19 20:18 Cholestyramine Resin (Questran) 4 gm THREE TIMES A DAY ORAL 02/25/19 18:00 03/27/19 17:59 02/26/19 08:36 Dextrose/ Electrolytes 1,000 ml @ 75 mls/hr [id number] IV 02/25/19 13:00 03/27/19 12:59 02/26/19 02:10 Docusate Sodium (Colace) 100 mg THREE TIMES A DAY ORAL 02/25/19 13:00 03/27/19 12:59 02/26/19 08:34 Ferrous Sulfate (Feosol) 325 mg THREE TIMES A DAY ORAL 02/25/19 13:00 03/27/19 12:59 02/26/19 08:34 Hydromorphone HCl (Dilaudid) 1 mg Q4H PRN SUBQ Mild Pain (Pain Scale 1-3) 02/25/19 08:00 03/04/19 07:59 Hydromorphone HCl (Dilaudid) 2 mg Q4H PRN SUBQ Moderate Pain (Pain Scale 4-6) 02/25/19 08:00 03/04/19 07:59 02/26/19 07:49 Lorazepam (Ativan) 1 mg BEDTIME ORAL 02/25/19 21:00 03/04/19 20:59 02/25/19 20:19 Losartan Potassium (Cozaar) 25 mg DAILY ORAL 02/26/19 09:00 03/28/19 08:59 02/26/19 08:35 Magnesium Hydroxide (Mom) 30 ml DAILYPRN PRN ORAL Constipation 02/25/19 08:00 03/27/19 07:59 Non-Formulary Medication (Non-Formulary Med) 1 ea DAILY ORAL 02/26/19 09:00 03/28/19 08:59 UNV Ondansetron HCl (Zofran) 4 mg Q6H PRN IVP Nausea & Vomiting 02/25/19 08:00 03/27/19 07:59 Oxycodone HCl (OxyCONTIN) 20 mg EVERY 12 HOURS ORAL 02/25/19 21:00 03/04/19 20:59 02/26/19 08:36 Pantoprazole (Protonix) 40 mg DAILY ORAL 02/26/19 09:00 03/28/19 08:59 02/26/19 08:36 Temazepam (Restoril) 7.5 mg HSPRN PRN ORAL Insomnia 02/25/19 15:00 03/04/19 07:59 02/25/19 21:46 Vitamin D (Vitamin D) 5,000 intlu DAILY ORAL 02/26/19 09:00 03/28/19 08:59 02/26/19 08:35 Allergies: Coded Allergies: No Known Allergies (Unverified , 01/17/16) ROS Limited/Unobtainable: No Constitutional: Reports: no symptoms HEENT: Reports: no symptoms Cardiovascular: Reports: no symptoms Respiratory: Reports: no symptoms Gastrointestinal/Abdominal: Reports: no symptoms Genitourinary: Reports: no symptoms Neurologic/Psychiatric: Reports: no symptoms Subjective 63 YO F admitted with osteoarthritis right knee. S/P total right knee arthroplasty 02/25/19. Cover for Int Michaelle Sanchez Objective Last Vital Signs Date Time Temp Pulse Resp B/P (MAP) Pulse Ox O2 Delivery O2 Flow Rate FiO2 02/26/19 09:06 97.3 02/26/19 08:35 124/74 02/26/19 08:09 Room Air 02/26/19 08:00 89 10 92 02/25/19 11:10 3 Laboratory Tests Test 02/26/19 05:26 White Blood Count 6.5 K/UL (4.8-10.8) Red Blood Count 3.75 M/UL (4.20-5.40) L Hemoglobin 10.8 G/DL (12.0-16.0) L Hematocrit 33.7 % (37.0-47.0) L Mean Corpuscular Volume 90 FL (80-99) Mean Corpuscular Hemoglobin 28.9 PG (27.0-31.0) Mean Corpuscular Hemoglobin Concent 32.1 G/DL (32.0-36.0) Red Cell Distribution Width 14.3 % (11.6-14.8) Platelet Count 185 K/UL (150-450) Mean Platelet Volume 7.3 FL (6.5-10.1) Neutrophils (%) (Auto) 66.4 % (45.0-75.0) Lymphocytes (%) (Auto) 15.8 % (20.0-45.0) L Monocytes (%) (Auto) 17.4 % (1.0-10.0) H Eosinophils (%) (Auto) 0.1 % (0.0-3.0) Basophils (%) (Auto) 0.4 % (0.0-2.0) Intake and Output 02/25/19 02/26/19 19:00 07:00 Intake Total 1830 ml 1380 ml Output Total 1200 ml Balance 630 ml 1380 ml Intake Oral 900 ml 480 ml IV Total 930 ml 900 ml Output Urine Total 1150 ml Estimated Blood Loss 50 ml # Voids 1 2 Objective General Appearance: WD/WN, no apparent distress, alert EENT: PERRL/EOMI, normal ENT inspection Neck: non-tender, normal alignment, supple, normal inspection Cardiovascular: normal peripheral pulses, normal rate, regular rhythm, no gallop/murmur, no JVD Respiratory/Chest: chest wall non-tender, lungs clear, normal breath sounds, no respiratory distress, no accessory muscle use Abdomen: normal bowel sounds, non tender, soft, no organomegaly, no mass Extremities: normal range of motion, non-tender 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
--- NOTE | 2019-02-26 12:39 | NUR ---
NURSE NOTES: dr galvez called back with new order. NS 500CC IV BOLUS STARTED AND INFUSING. WILL CONTINUE TO MONITOR PT.
--- NOTE | 2019-02-26 13:21 | NUR ---
PT NOTE PT treatment deferred due to low BP, will follow up tomorrow, Kelley CARVAJAL aware.
--- NOTE | 2019-02-26 14:45 | 48 Hour Post Anesthesia Eval ---
Post Anesthesia Evaluation Procedure: R Knee total Arthroplasty Date of Evaluation: Feb 26, 2019 Time of Evaluation: 14:42 Blood Pressure Systolic: 97 0: 59 Pulse Rate: 93 Respiratory Rate: 18 Temperature (Fahrenheit): 97.9 O2 Sat by Pulse Oximetry: 97 Airway: patent Nausea: No Vomiting: No Pain Intensity: 2 Hydration Status: adequate Cardiopulmonary Status: Stable Mental Status/LOC: patient returned to baseline Follow-up Care/Observations: 0 Post-Anesthesia Complications: 0 Follow-up care needed: ready to discharge Rod Lopez MD Feb 26, 2019 14:45
--- NOTE | 2019-02-26 16:05 | NUR ---
CASE MANAGEMENT:REVIEW 02/26/19 SI: POD #1 S/P RT TOTAL KNEE ARTHROPLASTY 97.4 86 18 103/65 99% ON RA IS: IVF@75/HR COZAAR PO QD PROTONIX PO QD OXYCONTIN PO Q12 WELBUTRIN PO Q12 ASA PO QD : MED/SURG [facility]
--- NOTE | 2019-02-26 16:27 | NUR ---
DISCHARGE PLANNING PATIENT HAS BEEN ACCEPTED TO [facility] FOR TOMORROW
--- NOTE | 2019-02-26 18:53 | NUR ---
NURSE NOTES: RESTING. IN NO DISTRESS.
--- NOTE | 2019-02-26 19:20 | NUR ---
HAND-OFF: Report given to Yanira GUILLORY RN.
--- NOTE | 2019-02-26 19:21 | NUR ---
NURSE NOTES: Received report & pt from WEI Benson. Pt lying in bed, a&ox4, in room air. No s/s of acute distress & c/o 10/10 pain. Will give pain med when due & pt verbalized understanding. Surgical dressing C/D/I, with ice pack on. IV site intact with IVF running as ordered. Bed in lowest position, call light within reach. Will continue to monitor.
[2019-02-26] MEDS: LORazepam 1mg tab ORAL SCH (20:03)
[2019-02-27 00:12] VITALS: BP 128/83
[2019-02-27] MEDS: HYDROcodone/Acetamin 5/325 tab ORAL PRN ×4 (02:45→21:37)
[2019-02-27 04:00] VITALS: BP 139/90
[2019-02-27] MEDS: D5 1/2NS w/KCl 20mEq 1,000 ML IV SCH (05:00)
[2019-02-27 06:25] LABS: BASOPHILS % (AUTO) 0.6 % (0.0-2.0); EOSINOPHILS % (AUTO) 0.1 % (0.0-3.0); HEMATOCRIT 33.7 % (37.0-47.0); HEMOGLOBIN 10.9 G/DL (12.0-16.0); LYMPHOCYTES % (AUTO) 8.5 % (20.0-45.0); MEAN CORPUSCULAR VOLUME 90 FL (80-99); MONOCYTES % (AUTO) 11.2 % (1.0-10.0); NEUTROPHILS % (AUTO) 79.6 % (45.0-75.0); PLATELET COUNT 169 K/UL (150-450); RED BLOOD COUNT 3.74 M/UL (4.20-5.40); RED CELL DISTRIBUTION WIDTH 14.7 % (11.6-14.8); WHITE BLOOD COUNT 10.6 K/UL (4.8-10.8)
--- NOTE | 2019-02-27 07:30 | NUR ---
HAND-OFF: Report given to WEI Urena & WEI Johnston. Pt in stable condition.
--- NOTE | 2019-02-27 07:31 | NUR ---
NURSE NOTES: Received report from WEI Masters. Rounding done with outgoing nurse. No respiratory distress noted. Rt knee surgical dressing is dry and intact. Left hand IV site is infiltrated. IV access is removed by table games shift manager nurse. Bed in lowest position, call light within reach. Will continue to monitor.
[2019-02-27] MEDS ORDERED: Tubing IV Secondary IV ONE (07:39)
[2019-02-27 08:00] VITALS: BP 121/90
--- NOTE | 2019-02-27 08:14 | Orthopedic Progress Note ---
Orthopedic - Progress Note Subjective Symptoms: c/o post-op knee pain, improved Objective Laboratory Tests Test 02/27/19 04:45 White Blood Count 10.6 K/UL (4.8-10.8) # Red Blood Count 3.74 M/UL (4.20-5.40) L Hemoglobin 10.9 G/DL (12.0-16.0) L Hematocrit 33.7 % (37.0-47.0) L Mean Corpuscular Volume 90 FL (80-99) Mean Corpuscular Hemoglobin 29.2 PG (27.0-31.0) Mean Corpuscular Hemoglobin Concent 32.5 G/DL (32.0-36.0) Red Cell Distribution Width 14.7 % (11.6-14.8) Platelet Count 169 K/UL (150-450) Mean Platelet Volume 7.3 FL (6.5-10.1) Neutrophils (%) (Auto) 79.6 % (45.0-75.0) H Lymphocytes (%) (Auto) 8.5 % (20.0-45.0) L Monocytes (%) (Auto) 11.2 % (1.0-10.0) H Eosinophils (%) (Auto) 0.1 % (0.0-3.0) Basophils (%) (Auto) 0.6 % (0.0-2.0) Last 24 Hour Vital Signs Date Time Temp Pulse Resp B/P (MAP) Pulse Ox O2 Delivery O2 Flow Rate FiO2 02/27/19 04:00 99.9 102 18 139/90 (106) 95 02/27/19 00:12 98.2 103 16 128/83 (98) 95 02/26/19 21:00 Room Air 02/26/19 20:00 97.7 101 16 114/85 (95) 99 02/26/19 16:00 97.4 86 18 103/65 (78) 99 02/26/19 15:08 97.9 02/26/19 14:45 93 18 97 02/26/19 14:29 93 97/59 (72) 97 02/26/19 13:57 94 88/55 (66) 97 02/26/19 12:30 90 84/57 (66) 93 02/26/19 12:30 94 83/57 (66) 93 02/26/19 12:00 97.9 94 20 84/57 (66) 96 02/26/19 10:55 97.3 02/26/19 09:06 97.3 02/26/19 08:35 124/74 02/26/19 08:19 97.3 Intake and Output 02/26/19 02/27/19 18:59 06:59 Intake Total 2350 ml 825 ml Output Total 400 ml Balance 1950 ml 825 ml Intake Oral 950 ml IV Total 1400 ml 825 ml Output Urine Total 400 ml # Voids 2 Laboratory Tests Test 02/27/19 04:45 White Blood Count 10.6 K/UL (4.8-10.8) # Red Blood Count 3.74 M/UL (4.20-5.40) L Hemoglobin 10.9 G/DL (12.0-16.0) L Hematocrit 33.7 % (37.0-47.0) L Mean Corpuscular Volume 90 FL (80-99) Mean Corpuscular Hemoglobin 29.2 PG (27.0-31.0) Mean Corpuscular Hemoglobin Concent 32.5 G/DL (32.0-36.0) Red Cell Distribution Width 14.7 % (11.6-14.8) Platelet Count 169 K/UL (150-450) Mean Platelet Volume 7.3 FL (6.5-10.1) Neutrophils (%) (Auto) 79.6 % (45.0-75.0) H Lymphocytes (%) (Auto) 8.5 % (20.0-45.0) L Monocytes (%) (Auto) 11.2 % (1.0-10.0) H Eosinophils (%) (Auto) 0.1 % (0.0-3.0) Basophils (%) (Auto) 0.6 % (0.0-2.0) Wound: clean, dry, intact Drains: none Neuro Status: normal Vascular Status: normal Additional Comments Some swelling to Left forearm, hand. IV recently d/c'd from dorsal palm. no sign of infection Assessment Post-op Diagnosis POD 2 Procedure Performed rt total knee arthroplasty Plan Plan: PT, pain management, discharge plan - To rehab today. miguel Davila as outpt, other - Will order STAT UE doppler given Left UE swelling. possible irritation from IV placement/dc. Ice and Elevate Tricia Dueñas Feb 27, 2019 08:14
--- NOTE | 2019-02-27 08:16 | Discharge Summary ---
Discharge Summary Hospital Course Date of Admission Feb 25, 2019 at 05:10 Date of Discharge 02/27/19 Admitting Diagnosis rt knee arthritis Reason for Hospitalization: s/p rt TKA HPI Lorraine Santamaria is a 63 year old female who was admitted on Feb 25, 2019 at 05:10 for Primary Osteoarthritis Of Right Knee Consultations Daniel/MD Mechelle Procedures Rt TKA Hospital Course benign. Left UE noted near IV site on day of d/c. US ordered Discharge Condition Upon Discharge: improving, stable Discharge Disposition Patient was discharged to [facility] Tricia Dueñas Feb 27, 2019 08:16
[2019-02-27] MEDS: Losartan 25mg tab ORAL SCH (09:47)
[2019-02-27] MEDS: BuPROPion 75mg Tab ORAL SCH ×2 (09:47→20:39)
[2019-02-27] MEDS: celeBREX 200mg Cap **SURGERY PATIENTS ONLY ORAL SCH (09:48)
[2019-02-27] MEDS: Cholestyramine 4gm Pkt ORAL SCH ×3 (09:48→17:31)
[2019-02-27] MEDS: Docusate 100mg cap ORAL SCH ×3 (09:48→17:31)
[2019-02-27] MEDS: Vitamin D 1000 IU Tab ORAL SCH (09:48)
[2019-02-27] MEDS: oxyCONTIN 20mg tab ORAL SCH ×2 (09:49→20:40)
--- NOTE | 2019-02-27 10:39 | NUR ---
DISCHARGE PLANNING PATIENT HAS BEEN ACCEPTED AT [facility] SPOKE WITH [place] THIS MORNING SHE WILL CALL THIS FILM READER BACK WITH ROOM ASSIGNMENT Addendum: 02/27/19 at 1538 by OSKAR BUSTILLO LVN LVN F/U CALL PLACED TO [place] AT [facility] REGARDING BED ASSIGNMENT ACCORDING TO [place] THE DISCHARGES THEY WERE EXPECTING TODAY DIDN'T LEAVE SO THEY DO NOT HAVE A BED FOR THIS PATIENT TODAY MESSAGES LEFT FOR DR APARICIO'S REBEAMER, [place], REGARDING LACK OF BED AT [facility] TODAY Addendum: 02/27/19 at 1544 by OSKAR BUSTILLO LVN LVN MESSAGE LEFT FOR DR PARKS REGARDING DELAY IN DISCHARGE Addendum: 02/27/19 at 1557 by OSKAR BUSTILLO LVN LVN RECEIVED RESPONSE FROM DR PARKS PATIENT CAN BE REFERRED TO ANY [facility] FAXED CLINICALS TO [facility] T: [phone] (HANDLE ROUNDER OPERATOR IS LISA LUIS) F: [phone] SPOKE WITH LISA. SHE KNOWS TO CALL NURSES [facility] DIRECTLY IF TRANSFER HAPPENS AFTER 1630 TODAY Addendum: 02/27/19 at 1637 by OSKAR BUSTILLO LVN LVN JUST RECEIVED MESSAGE FROM LISA AT [facility] STATING THEY CANNOT ACCEPT FILM READER HAS NOW FAXED CLINICALS TO [facility] T: [phone] F: [phone] Addendum: 02/27/19 at 1639 by OSKAR BUSTILLO LVN LVN FILM READER MILI Mcneil/[place] IN AM
[2019-02-27 12:00] VITALS: BP 115/79
--- NOTE | 2019-02-27 15:08 | Internal Med Progress Note ---
Subjective Date of Service: Feb 27, 2019 Physician Name Hans Min Attending Physician Vishnu Davila MD Current Medications Medications (Trade) Dose Ordered Sig/Samara Route PRN Reason Start Time Stop Time Status Last Admin Dose Admin Acetaminophen (Tylenol) 650 mg Q4H PRN ORAL temp>100.2 or headache 02/25/19 08:00 03/27/19 07:59 Acetaminophen/ Hydrocodone Bitart ([place] 5/325) 2 tab Q4H PRN ORAL pain scores 4-10 02/25/19 08:00 03/04/19 07:59 02/27/19 13:07 Acetaminophen/ Hydrocodone Bitart ([place] 7.5/325) 1 tab Q4H PRN ORAL Mild Pain (Pain Scale 1-3) 02/25/19 08:00 03/04/19 07:59 02/26/19 14:38 Aspirin (ASA) 325 mg BID ORAL 02/25/19 18:00 03/27/19 17:59 02/27/19 09:47 Bupropion HCl (Wellbutrin) 75 mg Q12HR ORAL 02/25/19 21:00 03/27/19 20:59 02/27/19 09:47 Celecoxib (CeleBREX) 200 mg DAILY ORAL 02/26/19 09:00 03/28/19 08:59 02/27/19 09:48 Cetirizine HCl (ZyrTEC) 10 mg BEDTIME ORAL 02/25/19 21:00 03/27/19 20:59 02/26/19 20:03 Cholestyramine Resin (Questran) 4 gm THREE TIMES A DAY ORAL 02/25/19 18:00 03/27/19 17:59 02/27/19 12:57 Dextrose/ Electrolytes 1,000 ml @ 75 mls/hr [id number] IV 02/25/19 13:00 03/27/19 12:59 02/26/19 17:14 Diphenhydramine HCl (Benadryl) 50 mg Q6H PRN ORAL Itching 02/26/19 11:30 03/28/19 11:29 02/27/19 00:04 Docusate Sodium (Colace) 100 mg THREE TIMES A DAY ORAL 02/25/19 13:00 03/27/19 12:59 02/27/19 12:57 Ferrous Sulfate (Feosol) 325 mg THREE TIMES A DAY ORAL 02/25/19 13:00 03/27/19 12:59 02/27/19 12:57 Hydromorphone HCl (Dilaudid) 1 mg Q4H PRN SUBQ Mild Pain (Pain Scale 1-3) 02/25/19 08:00 03/04/19 07:59 Hydromorphone HCl (Dilaudid) 2 mg Q4H PRN SUBQ Moderate Pain (Pain Scale 4-6) 02/25/19 08:00 03/04/19 07:59 02/27/19 05:13 Lorazepam (Ativan) 1 mg BEDTIME ORAL 02/25/19 21:00 03/04/19 20:59 02/26/19 20:03 Losartan Potassium (Cozaar) 25 mg DAILY ORAL 02/27/19 09:00 03/28/19 08:59 02/27/19 09:47 Magnesium Hydroxide (Mom) 30 ml DAILYPRN PRN ORAL Constipation 02/25/19 08:00 03/27/19 07:59 Non-Formulary Medication (Non-Formulary Med) 1 ea DAILY ORAL 02/26/19 09:00 03/28/19 08:59 UNV Ondansetron HCl (Zofran) 4 mg Q6H PRN IVP Nausea & Vomiting 02/25/19 08:00 03/27/19 07:59 Oxycodone HCl (OxyCONTIN) 20 mg EVERY 12 HOURS ORAL 02/25/19 21:00 03/04/19 20:59 02/27/19 09:49 Pantoprazole (Protonix) 40 mg DAILY ORAL 02/26/19 09:00 03/28/19 08:59 02/27/19 09:47 Temazepam (Restoril) 7.5 mg HSPRN PRN ORAL Insomnia 02/25/19 15:00 03/04/19 07:59 02/26/19 21:03 Vitamin D (Vitamin D) 5,000 intlu DAILY ORAL 02/26/19 09:00 03/28/19 08:59 02/27/19 09:48 Allergies: Coded Allergies: No Known Allergies (Unverified , 01/17/16) ROS Limited/Unobtainable: No Constitutional: Reports: no symptoms HEENT: Reports: no symptoms Cardiovascular: Reports: no symptoms Respiratory: Reports: no symptoms Gastrointestinal/Abdominal: Reports: no symptoms Genitourinary: Reports: no symptoms Neurologic/Psychiatric: Reports: no symptoms Subjective 63 YO F admitted with osteoarthritis right knee. S/P total right knee arthroplasty 02/25/19. Cover for Int Kp-Dr Sanchez Objective Last Vital Signs Date Time Temp Pulse Resp B/P (MAP) Pulse Ox O2 Delivery O2 Flow Rate FiO2 02/27/19 12:00 98.4 100 19 115/79 (91) 97 02/27/19 09:00 Room Air 02/25/19 11:10 3 Laboratory Tests Test 02/27/19 04:45 White Blood Count 10.6 K/UL (4.8-10.8) # Red Blood Count 3.74 M/UL (4.20-5.40) L Hemoglobin 10.9 G/DL (12.0-16.0) L Hematocrit 33.7 % (37.0-47.0) L Mean Corpuscular Volume 90 FL (80-99) Mean Corpuscular Hemoglobin 29.2 PG (27.0-31.0) Mean Corpuscular Hemoglobin Concent 32.5 G/DL (32.0-36.0) Red Cell Distribution Width 14.7 % (11.6-14.8) Platelet Count 169 K/UL (150-450) Mean Platelet Volume 7.3 FL (6.5-10.1) Neutrophils (%) (Auto) 79.6 % (45.0-75.0) H Lymphocytes (%) (Auto) 8.5 % (20.0-45.0) L Monocytes (%) (Auto) 11.2 % (1.0-10.0) H Eosinophils (%) (Auto) 0.1 % (0.0-3.0) Basophils (%) (Auto) 0.6 % (0.0-2.0) Microbiology Date/Time Source Procedure Growth Status 02/25/19 05:30 Nasal Nares MRSA Culture - Final NO METHICILLIN RESISTANT STAPH AUREUS... Complete Intake and Output 02/26/19 02/27/19 19:00 07:00 Intake Total 2275 ml 900 ml Output Total 400 ml Balance 1875 ml 900 ml Intake Oral 950 ml IV Total 1325 ml 900 ml Output Urine Total 400 ml # Voids 2 Objective General Appearance: WD/WN, no apparent distress, alert EENT: PERRL/EOMI, normal ENT inspection Neck: non-tender, normal alignment, supple, normal inspection Cardiovascular: normal peripheral pulses, normal rate, regular rhythm, no gallop/murmur, no JVD Respiratory/Chest: chest wall non-tender, lungs clear, normal breath sounds, no respiratory distress, no accessory muscle use Abdomen: normal bowel sounds, non tender, soft, no organomegaly, no mass Extremities: normal range of motion, non-tender 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
[2019-02-27] MEDS ORDERED: PANTOPRAZOLE SO40 MG ORAL (15:32)
[2019-02-27] MEDS ORDERED: FEOSOL325 MG ORAL (15:32)
[2019-02-27] MEDS ORDERED: NORCO 5-325 TA1 EACH ORAL (15:32)
[2019-02-27] MEDS ORDERED: ASPIRIN325 MG ORAL (15:32)
[2019-02-27] MEDS ORDERED: ACETAMINOPHEN325 M1 ORAL (15:32)
[2019-02-27] MEDS ORDERED: BENADRYL50 MG ORAL (15:32)
[2019-02-27] MEDS ORDERED: NORCO 7.5-3251 EACH ORAL (15:32)
[2019-02-27] MEDS ORDERED: CELEBREX200 MG ORAL (15:32)
[2019-02-27] MEDS ORDERED: RESTORIL7.5 MG ORAL (15:32)
[2019-02-27] MEDS ORDERED: OXYCONTIN20 MG ORAL (15:32)
[2019-02-27 16:00] VITALS: BP 113/73
--- NOTE | 2019-02-27 16:39 | NUR ---
NURSE NOTES: Pt does not have IV access. SAPPHIRE Clarke is aware.
--- NOTE | 2019-02-27 19:43 | NUR ---
HAND-OFF: Report given to WEI Trevizo.
--- NOTE | 2019-02-27 19:46 | NUR ---
NURSE NOTES: Received report from WEI Kay. Pt awake, alert and oriented x4, breathing even and unlabored. pt complaining of pain but received prn pain meds too recently to administer another dose. Advises pt to use alternative methods to reduce pain in which she said she will try meditating. Rt knee surgical dressing is dry and intact. IV site previously dc'd. aware. . Bed is in lowest position, call light within reach. Asked pt to be sure to use call light when assistance is needed. Will continue to monitor.
[2019-02-27 20:00] VITALS: BP 128/84
[2019-02-27] MEDS: LORazepam 1mg tab ORAL SCH (20:40)
[2019-02-28] VITALS: BP 120/78
[2019-02-28 04:00] VITALS: BP 118/84
[2019-02-28] MEDS: HYDROcodone/Acetamin 5/325 tab ORAL PRN ×2 (05:56→14:44)
[2019-02-28 06:41] LABS: BASOPHILS % (AUTO) 0.7 % (0.0-2.0); EOSINOPHILS % (AUTO) 0.1 % (0.0-3.0); HEMATOCRIT 31.1 % (37.0-47.0); LYMPHOCYTES % (AUTO) 10.1 % (20.0-45.0); MEAN CORPUSCULAR VOLUME 90 FL (80-99); MONOCYTES % (AUTO) 12.3 % (1.0-10.0); NEUTROPHILS % (AUTO) 76.8 % (45.0-75.0); PLATELET COUNT 174 K/UL (150-450); RED BLOOD COUNT 3.45 M/UL (4.20-5.40); RED CELL DISTRIBUTION WIDTH 14.8 % (11.6-14.8); WHITE BLOOD COUNT 9.2 K/UL (4.8-10.8)
--- NOTE | 2019-02-28 07:35 | NUR ---
HAND-OFF: Report given to Diane Barahona.
[2019-02-28 08:00] VITALS: BP 140/86
--- NOTE | 2019-02-28 08:00 | NUR ---
NURSES NOTE: Received pt awake, alert and oriented x4, sitting on the side of the bed eating breakfast. Patient is communicative and is able to let needs be known. Rounds made with outgoing nurse and patient reported to be stable through out NOC shift. No outward s/s of distress noted. Breathing pattern is even and unlabored. Dressing on Right knee is clean, intact. Pain 8/10 and will give pain meds when due. Bed at lowest level. Call light within reach. Pt will continue to be monitored.
--- NOTE | 2019-02-28 08:37 | Orthopedic Progress Note ---
Orthopedic - Progress Note Subjective Symptoms: other - No bed available yesterday. d/c planned for today. Some pain overnight Objective Laboratory Tests Test 02/28/19 05:35 White Blood Count 9.2 K/UL (4.8-10.8) Red Blood Count 3.45 M/UL (4.20-5.40) L Hemoglobin 10.0 G/DL (12.0-16.0) L Hematocrit 31.1 % (37.0-47.0) L Mean Corpuscular Volume 90 FL (80-99) Mean Corpuscular Hemoglobin 28.9 PG (27.0-31.0) Mean Corpuscular Hemoglobin Concent 32.1 G/DL (32.0-36.0) Red Cell Distribution Width 14.8 % (11.6-14.8) Platelet Count 174 K/UL (150-450) Mean Platelet Volume 8.5 FL (6.5-10.1) Neutrophils (%) (Auto) 76.8 % (45.0-75.0) H Lymphocytes (%) (Auto) 10.1 % (20.0-45.0) L Monocytes (%) (Auto) 12.3 % (1.0-10.0) H Eosinophils (%) (Auto) 0.1 % (0.0-3.0) Basophils (%) (Auto) 0.7 % (0.0-2.0) Last 24 Hour Vital Signs Date Time Temp Pulse Resp B/P (MAP) Pulse Ox O2 Delivery O2 Flow Rate FiO2 02/28/19 04:00 97.3 97 19 118/84 (95) 98 02/28/19 00:00 97.9 98 18 120/78 (92) 96 02/27/19 21:00 Room Air 02/27/19 20:00 99.1 112 18 128/84 (99) 97 02/27/19 16:00 97.7 101 20 113/73 (86) 97 02/27/19 12:00 98.4 100 19 115/79 (91) 97 02/27/19 09:47 121/90 02/27/19 09:00 Room Air Intake and Output 02/27/19 02/28/19 19:00 07:00 Intake Total 960 ml Balance 960 ml Intake Oral 960 ml Laboratory Tests Test 02/28/19 05:35 White Blood Count 9.2 K/UL (4.8-10.8) Red Blood Count 3.45 M/UL (4.20-5.40) L Hemoglobin 10.0 G/DL (12.0-16.0) L Hematocrit 31.1 % (37.0-47.0) L Mean Corpuscular Volume 90 FL (80-99) Mean Corpuscular Hemoglobin 28.9 PG (27.0-31.0) Mean Corpuscular Hemoglobin Concent 32.1 G/DL (32.0-36.0) Red Cell Distribution Width 14.8 % (11.6-14.8) Platelet Count 174 K/UL (150-450) Mean Platelet Volume 8.5 FL (6.5-10.1) Neutrophils (%) (Auto) 76.8 % (45.0-75.0) H Lymphocytes (%) (Auto) 10.1 % (20.0-45.0) L Monocytes (%) (Auto) 12.3 % (1.0-10.0) H Eosinophils (%) (Auto) 0.1 % (0.0-3.0) Basophils (%) (Auto) 0.7 % (0.0-2.0) Assessment Post-op Diagnosis POD 3 Procedure Performed rt total knee arthroplasty Plan Plan: discharge plan - to rehab today Tricia Dueñas Feb 28, 2019 08:37
[2019-02-28] MEDS: Losartan 25mg tab ORAL SCH (08:42)
[2019-02-28] MEDS: celeBREX 200mg Cap **SURGERY PATIENTS ONLY ORAL SCH (08:44)
[2019-02-28] MEDS: BuPROPion 75mg Tab ORAL SCH (08:45)
[2019-02-28] MEDS: Docusate 100mg cap ORAL SCH ×2 (08:45→12:35)
[2019-02-28] MEDS: Cholestyramine 4gm Pkt ORAL SCH ×2 (08:46→12:35)
[2019-02-28] MEDS: oxyCONTIN 20mg tab ORAL SCH (08:46)
[2019-02-28] MEDS: Vitamin D 1000 IU Tab ORAL SCH (08:55)
[2019-02-28 12:00] VITALS: BP 127/86
--- NOTE | 2019-02-28 12:43 | NUR ---
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
--- NOTE | 2019-02-28 13:19 | NUR ---
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
--- NOTE | 2019-02-28 14:20 | NUR ---
NURSE NOTES: Report was given to Alyssa at [facility].
--- NOTE | 2019-02-28 15:50 | NUR ---
NURSE NOTES: Discharge packet was given to ambulance personnel. All belongings checked with the patient. Arm band was removed. Patient discharged in stable condition.
--- NOTE | 2019-02-28 17:15 | Internal Med Progress Note ---
Subjective Physician Name Oscar Sanchez Attending Physician Vishnu Davila MD Allergies: Coded Allergies: No Known Allergies (Unverified , 01/17/16) Subjective awake, alert, responsive, NAD Objective Last Vital Signs Date Time Temp Pulse Resp B/P (MAP) Pulse Ox O2 Delivery O2 Flow Rate FiO2 02/28/19 12:00 98.2 101 18 127/86 (100) 97 02/28/19 09:00 Room Air 02/25/19 11:10 3 Laboratory Tests Test 02/28/19 05:35 White Blood Count 9.2 K/UL (4.8-10.8) Red Blood Count 3.45 M/UL (4.20-5.40) L Hemoglobin 10.0 G/DL (12.0-16.0) L Hematocrit 31.1 % (37.0-47.0) L Mean Corpuscular Volume 90 FL (80-99) Mean Corpuscular Hemoglobin 28.9 PG (27.0-31.0) Mean Corpuscular Hemoglobin Concent 32.1 G/DL (32.0-36.0) Red Cell Distribution Width 14.8 % (11.6-14.8) Platelet Count 174 K/UL (150-450) Mean Platelet Volume 8.5 FL (6.5-10.1) Neutrophils (%) (Auto) 76.8 % (45.0-75.0) H Lymphocytes (%) (Auto) 10.1 % (20.0-45.0) L Monocytes (%) (Auto) 12.3 % (1.0-10.0) H Eosinophils (%) (Auto) 0.1 % (0.0-3.0) Basophils (%) (Auto) 0.7 % (0.0-2.0) Intake and Output 02/27/19 02/28/19 19:00 07:00 Intake Total 960 ml Balance 960 ml Intake Oral 960 ml Objective General: No acute distress, awake and alert HEENT: NCAT, sclera anicteric, PERRL, EOMI. Neck: Supple, no significant jugular venous distention, Lungs: Good inspiratory effort, clear to auscultation bilaterally, no Wheeze or Rales. Heart: Regular rate and rhythm, normal S1/S2, no murmur. Abdomen: soft, nontender, nondistended. Normoactive bowel sounds. / Rectal: Refused and deferred. Extremities: No Cyanosis , clubbing or edema. right knee surgical incision intact. Neuro: A&O x 3, Able to move all extremities Skin: warm, no rashes or lesions Psych: Normal mood and affect Assessment/Plan Assessment/Plan Assessment/Plan Problem List: (1) Osteoarthritis of right knee Assessment & Plan: S/P right knee total arthroplasty 02/25/19 (2) HTN (hypertension) Assessment & Plan: Continue losartan (3) Barretts esophagus (4) GERD (gastroesophageal reflux disease) Assessment & Plan: Continue Protonix (5) Depression, major Assessment & Plan: Continue Wellbutrin Assessment/Plan Discharge to [facility] today. Oscar Sanchez MD Feb 28, 2019 17:14
== END 2019-02-28 15:50 | disposition short-term general hospital (02) | DRG 470 ==
LOC: SDSOVERFLO 05:10 → 3E 11:21
PROC: 0SRC0J9 Replacement of Right Knee Joint with Synthetic Substitute, Cemented, Open Approach (ICD-10-PCS; principal; 2019-02-25 07:30)
DX: M17.11 Unilateral primary osteoarthritis, right knee (principal); F33.8 Other recurrent depressive disorders; I10 Essential (primary) hypertension; G47.00 Insomnia, unspecified; K21.9 Gastro-esophageal reflux disease without esophagitis; F41.9 Anxiety disorder, unspecified; R32 Unspecified urinary incontinence; H61.20 Impacted cerumen, unspecified ear; K22.70 Barrett's esophagus without dysplasia
CPT/HCPCS: 36415; 85025; 86850; 86900; 86901; 87081; 93931; 94003; 94150; J2405; J3490

== ENCOUNTER 2020-04-06 06:33 | Inpatient (IN) | payer MEDICARE, OTHER ==
[~2020-04-06] VITALS: Ht 165.1 cm; Wt 61.2 kg
[2020-04-06] VITALS (13 sets, daily range): BP systolic 96–138; BP diastolic 63–87
[~2020-04-06 06:33] MED LIST changes: +ACETAMINOPHEN325 M1 ORAL; +AMLODIPINE BESY10 MG ORAL; +ASPIRIN325 MG ORAL; +AZELASTINE137 MCG/0. NS; +BENADRYL50 MG ORAL; +CELEBREX200 MG ORAL; +CHLORHEXIDINE FL1 M1 MC; +FEOSOL325 MG ORAL; +FLUTICASONE PRO16 G1 NASAL; +IPRATROPIU0.2 MG/1 M HHN; +LOSARTAN POTASS50 MG ORAL; +MULTIVITAMINS1 EAC8 ORAL; +MYRBETRIQ25 MG PO; +NORCO 5-325 TA1 EACH ORAL; +NORCO 7.5-3251 EACH ORAL; +OXYCONTIN20 MG ORAL; +OYSCO 500+D TA1 EAC1 PO; +PANTOPRAZOLE SO40 MG ORAL; +PROCTOSOL-HC1 APPLIC TOPIC; +RESTORIL7.5 MG ORAL; +TRAZODONE HCL50 MG ORAL; +ceFAZolin 1gm IVPB IVPB ONE; +celeBREX 200mg Cap **SURGERY PATIENTS ONLY ORAL ONE; +oxyCONTIN 10mg tab ORAL ONE
[2020-04-06] MEDS ORDERED: Lidocaine 1% MPF 10mg/ml 5ml ONE (06:39)
[2020-04-06] MEDS ORDERED: fentaNYL 100 mcg/2 mL IV ONE (06:39)
[2020-04-06] MEDS ORDERED: Midazolam 2mg/2ml Inj ONE (06:39)
[2020-04-06] MEDS ORDERED: Bacitracin 50000 Units Vial ONE (06:41)
[2020-04-06] MEDS ORDERED: Tranexamic Acid 1,000 MG in NS 65 ML IVPB ONE (06:45)
[2020-04-06] MEDS ORDERED: Rocuronium Bromide 50mg/5ml Inj IV ONE (06:53)
[2020-04-06] MEDS ORDERED: Succinylcholine 20mg/ml 10ml vial ONE (06:53)
--- NOTE | 2020-04-06 07:09 | Pre-Procedure Note/Attestation ---
Pre-Procedure Note/Attestation Complete Prior to Procedure Planned Procedure: right Procedure Narrative: right total hip arthroplasty Indications for Procedure Pre-Operative Diagnosis: right hip arthritis Attestation I attest that I discussed the nature of the procedure; its benefits; risks and complications; and alternatives (and the risks and benefits of such alternatives), prior to the procedure, with the patient (or the patient's legal factory representative). I attest that, if there was a reasonable possibility of needing a blood transfusion, the patient (or the patient's legal factory representative) was given the [facility] standardized written summary, pursuant to the Alvaro Allison Blood Safety Act ([place] Health and Safety Code # 1645, as amended). I attest that I re-evaluated the patient just prior to the surgery and that there has been no change in the patient's H&P, except as documented below:none Vishnu Davila MD Apr 06, 2020 07:09
[2020-04-06] MEDS ORDERED: Duramorph PF 5mg/10ml amp ONE (07:52)
[2020-04-06 07:59] LABS: BASOPHILS % (AUTO) 1.1 % (0.0-2.0); EOSINOPHILS % (AUTO) 0.5 % (0.0-3.0); HEMATOCRIT 32.5 % (37.0-47.0); LYMPHOCYTES % (AUTO) 25.2 % (20.0-45.0); MEAN CORPUSCULAR VOLUME 86 FL (80-99); MONOCYTES % (AUTO) 8.4 % (1.0-10.0); NEUTROPHILS % (AUTO) 64.9 % (45.0-75.0); PLATELET COUNT 206 K/UL (150-450); RED BLOOD COUNT 3.78 M/UL (4.20-5.40); RED CELL DISTRIBUTION WIDTH 14.9 % (11.6-14.8); WHITE BLOOD COUNT 8.5 K/UL (4.8-10.8)
[2020-04-06] MEDS ORDERED: Acetaminophen (Non formulary) 100 ML IV ONE (08:00)
--- NOTE | 2020-04-06 08:06 | Anethesia Preoperative Eval ---
Anesthesia Pre-op PMH/ROS General Date of Evaluation: Apr 06, 2020 Time of Evaluation: 07:59 Anesthesiologist: Rajani ASA Score: ASA 2 Mallampati Score Class I : Soft palate, uvula, fauces, pillars visible Class II: Soft palate, uvula, fauces visible Class III: Soft palate, base of uvula visible Class IV: Only hard plate visible Mallampati Classification: Class II Surgeon: Lola Diagnosis: R hip DJD Surgical Procedure: R hip arthroplasty Anesthesia History: none Family History: no anesthesia problems Allergies: Coded Allergies: No Known Allergies (Unverified , 12/05/19) Medications: see eMAR Patient NPO?: Yes Past Medical History Cardiovascular: Reports: HTN; Denies: CAD, ND, valve dz, arrhythmia, other Pulmonary: Denies: asthma, COPD, VALERIO, other Gastrointestinal/Genitourinary: Reports: GERD; Denies: CRI, ESRD, other Neurologic/Psychiatric: Reports: depression/anxiety, other - bipolar disrder; Denies: dementia, CVA, TIA Endocrine: Denies: DM, hypothyroidism, steroids, other HEENT: Reports: cataract (L), cataract (R) - s/p bilateral Sx; Denies: glaucoma, CHICKALOON (L), CHICKALOON (R), other Hematology/Immune: Reports: anemia - mild; Denies: DVT, bleeding disorder, other Musculoskeletal/Integumentary: Reports: OA, DJD; Denies: RA, DDD, edema, other Other: obesity - s/p gastric bypass, malnourishment used to be on TPN PMH Narrative: as above PSxH Narrative: L hip arthroplasty gastric bypass, cholecystectomy, bilateral cataracts, R knee arthroplasty Anesthesia Pre-op Phys. Exam Physician Exam Last Vital Signs Date Time Temp Pulse Resp B/P (MAP) Pulse Ox O2 Delivery O2 Flow Rate FiO2 04/06/20 07:22 Room Air 04/06/20 07:15 97.4 76 18 118/87 (97) 95 Constitutional: NAD Neurologic: CN 2-12 intact Cardiovascular: RRR Respiratory: CTA Gastrointestinal: S/NT/ND Airway Exam Mallampati Score: Class II MO: full Neck: flexible ROM: full Teeth: intact Dentures: no upper, no lower Anesthesia Pre-op A/P Labs Hematology Test 04/06/20 07:25 White Blood Count Pending Red Blood Count Pending Hemoglobin Pending Hematocrit Pending Mean Corpuscular Volume Pending Mean Corpuscular Hemoglobin Pending Mean Corpuscular Hemoglobin Concent Pending Red Cell Distribution Width Pending Platelet Count Pending Mean Platelet Volume Pending Neutrophils (%) (Auto) Pending Lymphocytes (%) (Auto) Pending Monocytes (%) (Auto) Pending Eosinophils (%) (Auto) Pending Basophils (%) (Auto) Pending Chemistry Test 04/06/20 07:25 Sodium Level Pending Potassium Level Pending Chloride Level Pending Carbon Dioxide Level Pending Blood Urea Nitrogen Pending Creatinine Pending Estimat Glomerular Filtration Rate Pending Glucose Level Pending Calcium Level Pending Studies Pre-op Studies: EKG - NSR , CXR - WNL, echo - EF 60% Risk Assessment & Plan Assessment: ASA 3 Plan: SAB with GA Status Change Before Surgery: No Pre-Antibiotics Drug: Acef 1gr Given Within 1 Hr of Incision: Yes Time Given: 08:40 Neal Gerard MD Apr 06, 2020 08:06
[2020-04-06 08:14] LABS: ANION GAP 9 mmol/L (5-15); BLOOD UREA NITROGEN 27 mg/dL (7-18); CALCIUM 8.9 MG/DL (8.5-10.1); CARBON DIOXIDE 24 MMOL/L (21-32); CHLORIDE 104 MMOL/L (98-107); CREATININE 0.9 MG/DL (0.55-1.30); POTASSIUM 4.4 MMOL/L (3.5-5.1); SODIUM 137 MMOL/L (136-145)
[2020-04-06] MEDS ORDERED: NS Irrig 1000ml ONE (09:00)
[2020-04-06] MEDS ORDERED: LR 1000ml ONE (09:00)
[2020-04-06] MEDS ORDERED: Sterile Water Irrig 1000ml IRRIG ONE (09:00)
[2020-04-06] MEDS ORDERED: Midazolam 2mg/2ml Inj IVP PRN (10:00)
[2020-04-06] MEDS ORDERED: Ketorolac 30mg Inj IV PRN (10:00)
[2020-04-06] MEDS ORDERED: DiphenhydrAMINE 50mg/ml Inj IVP PRN (10:00)
[2020-04-06] MEDS ORDERED: Hydromorphone 0.5mg/0.5ml inj IVP PRN (10:00)
[2020-04-06] MEDS ORDERED: LR 1000ml 1,000 ML IVLG SCH (10:00)
--- NOTE | 2020-04-06 11:12 | Brief Operative Note ---
Immediate Post Operative Note Operative Note Chief Complaint: Right hip pain Pre-op Diagnosis: Right hip arthritis Procedure: right total hip arthroplasty Post-op Diagnosis: same as pre-op Findings: consistent w/pre-op dx studies Surgeon: md markos Neuropathologist: zuleima parker Anesthesiologist: md pineda Anesthesia: general Specimen: yes Complications: none Condition: stable Fluids: ns Estimated Blood Loss: minimal Drains: none Implant(s) used?: Yes - carmen and nephTricia Patton Apr 06, 2020 11:12
--- NOTE | 2020-04-06 11:23 | Immediate Post-Op Evaluation ---
Immediate Post-Op Evalulation Immediate Post-Op Evalulation Procedure: R total hip arthroplasty Date of Evaluation: Apr 06, 2020 Time of Evaluation: 11:22 IV Fluids: 1200 Blood Products: none Estimated Blood Loss: 150 Urinary Output: 300 Blood Pressure Systolic: 101 Blood Pressure Diastolic: 72 Pulse Rate: 74 Respiratory Rate: 20 O2 Sat by Pulse Oximetry: 99 Temperature (Fahrenheit): 97.8 Pain Score (1-10): 1 Nausea: No Vomiting: No Complications none Patient Status: reacts, patent, none Hydration Status: adequate Neal Gerard MD Apr 06, 2020 11:23
--- NOTE | 2020-04-06 13:00 | NUR ---
NURSE NOTES: Pt came up to unit via hospital bed in stable condition and on 3L NC. Pt A&Ox4, VSS, and in no apparent distress. IV site intact/asymptomatic & surgical dressing C/D/I. Pt has no complaints of pain at this time. Will contact pre-op for belongings; will continue to monitor.
[2020-04-06] MEDS ORDERED: Milk of Magnesia 30ml Ud ORAL PRN (14:00)
[2020-04-06] MEDS ORDERED: HYDROmorphone 1mg/ml Carpuject SUBQ PRN (14:00)
--- NOTE | 2020-04-06 14:23 | Diagnostic Imaging Report ---
Indication: Pain, intraoperative Technique: One view of the pelvis Comparison: none Findings: Intraoperative images demonstrate a right femoral broach and acetabular cup and subsequently arthroplasty prosthesis in good position. Air from the surgical exposure is seen in the soft tissues. Also demonstrated is a prior left hip arthroplasty prosthesis Impression: Intraoperative imaging, as described
--- NOTE | 2020-04-06 14:30 | Diagnostic Imaging Report ---
Indication: Postoperative, status post hip arthroplasty Technique: One view of the pelvis Comparison: 1 1/2 hours earlier Findings: Interim completion of right hip arthroplasty procedure, prosthesis appearing well situated. Retained air from the surgical exposure seen in the soft tissues. Impression: Postoperative right hip. No unusual features
--- NOTE | 2020-04-06 16:05 | NUR ---
P.T/REHAB NOTE: P.T EVALUATION COMPLETED AND TX INITIATED POD#0 PER CHARU PROTOCOL. PLEASE REFER TO P.T EVALUATION FOR FULL REPORT.
[2020-04-06] MEDS: D5 1/2NS w/KCl 20mEq 1,000 ML IV SCH (16:23)
[2020-04-06] MEDS: ceFAZolin 2gm/50ml Premix 50 ML IV SCH ×2 (16:23→23:29)
[2020-04-06] MEDS: HYDROcodone/Acetamin 7.5/325 tab ORAL PRN ×2 (17:16→23:29)
--- NOTE | 2020-04-06 17:48 | Internal Med Progress Note ---
Subjective Date of Service: Apr 06, 2020 Physician Name MinHans Attending Physician Vishnu Davila MD Current Medications Medications (Trade) Dose Ordered Sig/Samara Route PRN Reason Start Time Stop Time Status Last Admin Dose Admin Acetaminophen (Tylenol) 650 mg Q4H PRN ORAL Mild Pain (Pain Scale 1-3) 04/06/20 14:00 05/06/20 13:59 Acetaminophen/ Hydrocodone Bitart ([place] 7.5/325) 1 tab Q4H PRN ORAL Moderate Pain (Pain Scale 4-6) 04/06/20 14:00 04/13/20 13:59 04/06/20 17:16 Amlodipine Besylate (Norvasc) 10 mg DAILY ORAL 04/07/20 09:00 05/07/20 08:59 Aspirin (ASA) 325 mg BID ORAL 04/06/20 18:00 05/21/20 17:59 Calcium/Vitamin D (OsCal D) 1 tab DAILY ORAL 04/07/20 09:00 07/06/20 08:59 Cefazolin Sodium 50 ml @ 100 mls/hr Q8H IV 04/06/20 16:00 04/07/20 00:29 04/06/20 16:23 Dextrose/ Electrolytes 1,000 ml @ 75 mls/hr [id number] IV 04/06/20 14:30 05/06/20 14:29 04/06/20 16:23 Diphenhydramine HCl (Benadryl) 25 mg Q6H PRN ORAL Itching 04/06/20 17:00 05/06/20 16:59 04/06/20 17:15 Docusate Sodium (Colace) 100 mg THREE TIMES A DAY ORAL 04/06/20 18:00 05/06/20 17:59 Ferrous Sulfate (Feosol) 325 mg THREE TIMES A DAY ORAL 04/06/20 18:00 07/05/20 17:59 Hydromorphone HCl (Dilaudid) 1 mg Q4H PRN SUBQ Mild Pain (Pain Scale 1-3) 04/06/20 14:00 04/13/20 13:59 Hydromorphone HCl (Dilaudid) 2 mg Q4H PRN SUBQ Moderate Pain (Pain Scale 4-6) 04/06/20 13:30 04/13/20 13:29 Lorazepam (Ativan) 2 mg BID ORAL 04/06/20 18:00 04/13/20 17:59 Losartan Potassium (Cozaar) 50 mg DAILY ORAL 04/07/20 09:00 05/07/20 08:59 Magnesium Hydroxide (Mom) 30 ml DAILYPRN PRN ORAL Constipation 04/06/20 14:00 05/06/20 13:59 Multivitamins Therapeutic (Therapeutic Multivitamin) 1 ea DAILY ORAL 04/07/20 09:00 05/07/20 08:59 Pantoprazole (Protonix) 40 mg ACBREAKFAST ORAL 04/07/20 06:30 05/07/20 06:29 Prochlorperazine (Compazine) 10 mg Q6H PRN IVP Nausea & Vomiting 04/06/20 14:00 05/06/20 13:59 Trazodone HCl (Desyrel) 50 mg BEDTIME ORAL 04/06/20 21:00 05/06/20 20:59 Zolpidem Tartrate (Ambien) 5 mg BEDTIME PRN ORAL Insomnia 04/06/20 17:00 04/13/20 16:59 Allergies: Coded Allergies: No Known Allergies (Unverified , 12/05/19) ROS Limited/Unobtainable: No Constitutional: Reports: no symptoms HEENT: Reports: no symptoms Cardiovascular: Reports: no symptoms Respiratory: Reports: no symptoms Gastrointestinal/Abdominal: Reports: no symptoms Genitourinary: Reports: no symptoms Neurologic/Psychiatric: Reports: no symptoms Subjective 64 YO F admitted with osteoarthritis right hip. S/P right hip total arthroplasty 04/06/20. Cover for Rhys Sanchez Objective Last Vital Signs Date Time Temp Pulse Resp B/P (MAP) Pulse Ox O2 Delivery O2 Flow Rate FiO2 04/06/20 15:30 98.1 98 18 96/63 (74) 98 04/06/20 13:00 Room Air 04/06/20 12:35 3 General Appearance: WD/WN, no apparent distress, alert, mild distress EENT: PERRL/EOMI, normal ENT inspection Neck: non-tender, normal alignment, supple, normal inspection Cardiovascular: normal peripheral pulses, normal rate, regular rhythm, no gallop/murmur, no JVD Respiratory/Chest: chest wall non-tender, lungs clear, normal breath sounds, no respiratory distress, no accessory muscle use Abdomen: normal bowel sounds, non tender, soft, no organomegaly, no mass Extremities: normal range of motion, non-tender 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, no motor/sensory deficits Skin: normal pigmentation, warm/dry Laboratory Tests Test 04/06/20 07:25 White Blood Count 8.5 K/UL (4.8-10.8) Red Blood Count 3.78 M/UL (4.20-5.40) L Hemoglobin 11.0 G/DL (12.0-16.0) L Hematocrit 32.5 % (37.0-47.0) L Mean Corpuscular Volume 86 FL (80-99) Mean Corpuscular Hemoglobin 29.1 PG (27.0-31.0) Mean Corpuscular Hemoglobin Concent 33.8 G/DL (32.0-36.0) Red Cell Distribution Width 14.9 % (11.6-14.8) H Platelet Count 206 K/UL (150-450) Mean Platelet Volume 7.7 FL (6.5-10.1) Neutrophils (%) (Auto) 64.9 % (45.0-75.0) Lymphocytes (%) (Auto) 25.2 % (20.0-45.0) Monocytes (%) (Auto) 8.4 % (1.0-10.0) Eosinophils (%) (Auto) 0.5 % (0.0-3.0) Basophils (%) (Auto) 1.1 % (0.0-2.0) Sodium Level 137 MMOL/L (136-145) Potassium Level 4.4 MMOL/L (3.5-5.1) Chloride Level 104 MMOL/L (98-107) Carbon Dioxide Level 24 MMOL/L (21-32) Anion Gap 9 mmol/L (5-15) Blood Urea Nitrogen 27 mg/dL (7-18) H Creatinine 0.9 MG/DL (0.55-1.30) Estimat Glomerular Filtration Rate > 60 mL/min (>60) Glucose Level 87 MG/DL (74-106) Calcium Level 8.9 MG/DL (8.5-10.1) Intake and Output 04/05/20 04/06/20 19:00 07:00 # Voids 1 Assessment/Plan Problem List: (1) Osteoarthritis of right hip Assessment & Plan: S/P total right hip arthroplasty 04/06/20. Orhto=Dr Davila. (2) Right hip pain (3) HTN (hypertension) Assessment & Plan: Continue amlodipine and cozaar (4) GERD (gastroesophageal reflux disease) Assessment & Plan: continue protonix (5) Barretts esophagus (6) Anxiety Assessment & Plan: continue ativan (7) Depression, major Assessment & Plan: continue trazodone Hans Min MD Apr 06, 2020 17:48
[2020-04-06] MEDS: Docusate 100mg cap ORAL SCH (18:26)
[2020-04-06] MEDS: LORazepam 1mg tab ORAL SCH (18:29)
--- NOTE | 2020-04-06 18:30 | Operative Note - Dictated ---
DATE OF OPERATION: 04/06/2020 PREOPERATIVE DIAGNOSIS: Right hip end-stage arthritis. POSTOPERATIVE DIAGNOSIS: Right hip end-stage arthritis. PROCEDURE: Right total hip arthroplasty using Green[employer] and Nephew system, size 52 mm R3 hemispheric cup with two dome screws of 120 mm and 125 mm, size 9 Anthology stem, standard offset with a 36 mm cobalt chromium head with 0 neck length. SURGEON: Vishnu Davila MD AGRICULTURAL SYSTEMS SPECIALIST: Tricia Dueñas PA-C [employer] was present during the actual operative portion of the case and was important and essential part of the operation. During the operation, the liaison inspection laboratory assistant held and operated the arthroscopic camera for visualization, assisted by manipulating the arm to help with visualization, and helped with essential parts of the repair process as necessary such as operating surgical instruments under surgeon supervision, suture management, and wound closures. ANESTHESIOLOGIST: Neal Gerard MD ANESTHESIA: Spinal anesthesia combined with LMA. ESTIMATED BLOOD LOSS: Less than 150 mL. COMPLICATIONS: None. BRIEF HISTORY: The patient is a very pleasant 64-year-old female, who has had ongoing right hip pain. She has significant arthritis. She was treated conservatively and she failed. After full discussion of risks and benefits of surgery and complications associated with it including infection, bleeding, neurovascular complication, possibility of continued pain, possibility of DVT and PE, and other complications that may arise as well as leg-length discrepancy, limping, neurological complication including footdrop as well as infections requiring resection arthroplasty and need for surgery in case of loosening and dislocations, she opted for surgical treatment as described above. OPERATIVE PROCEDURE: The patient was brought to the operating table and was placed supine. All pressure points were well padded. Spinal anesthesia was induced. LMA anesthesia was induced. The patient was placed in left lateral decubitus position with the right hip up. All pressure points were well padded. She was stabilized using pegboard. The right hip was prepped and draped in usual sterile fashion. The time-out was performed and preoperative antibiotics and tranexamic acid was given and the care was given to surgical procedure. A standard posterolateral incision was made over the right hip. The incision was taken through subcutaneous tissue and tensor fascia and gluteal fascia were opened. The Charnley retractors were placed in. Short external rotators were then released and piriformis was released. At this point, the capsule was identified and was T'd. The hip was dislocated. The end of the capsules were tagged with #2 FiberWire suture for later repair. The standard femoral neck cut was performed approximately 1 cm proximal to the lesser trochanter. At this point, the anterior acetabular retractor was placed in and standard other acetabular retractors were placed in to expose the acetabulum. The labrum was resected. There was a large osteophyte on the acetabulum. Using a 47 mm reamer, the acetabulum was reamed to medialize and get rid of the osteophyte. Subsequently, sequential reaming was performed up to size 52, which provided excellent bleeding bone anteriorly, posteriorly, and superiorly. The 35 degrees of anteversion and 45-degree inclination was created. At this point, trialing was performed, which appeared to be excellent and the trial seated well. Subsequently, the acetabulum was irrigated with Simpulse irrigation and a 52 mm R3 hemispheric cup was placed in and was malleted in in the same anteversion and inclination. There was excellent needed stability; however, two additional bone screws of 125 and 120 mm were placed in for added stability. Once this was completed, a 20-degree lipped ultra cross-linked polyethylene cup liner was placed in and locked in without any complications. At this point, care was given to the femur. The femur was internally rotated. A Fisher retractor was placed in and a straight Hohmann was placed in under the lesser trochanter. Using a box sealing inspector, the entry point into the femur was lateralized. An intramedullary finder awl was used to get intramedullary access. At this point, sequential broaching was performed using [address] up to size 9 broach. Size 9 broach gave excellent vertical and rotational stability. There was a small nondisplaced crack of the greater trochanter, which was nondisplaced and could clearly be seen. There was slight micro-movement of the greater trochanter. The lesser trochanter appeared to be intact and the calcar was intact. There was excellent axial and rotational stability of the broach. At this point, a standard neck and 0 mm neck length with 36 mm diameter head was used and the entire construct was reduced. Intraoperative x-rays were obtained, which showed excellent placement of the acetabular cup and femoral facet. There were no fractures that could be identified through the calcar area. There was a small nondisplaced fracture through the greater trochanter that could be identified. The femoral stem was in excellent position. At this point, the broach was removed. The wounds were thoroughly irrigated. Size 9 Anthology stem was placed in and was malleted down to stable position, both axially and rotationally. There was excellent endpoint. There was excellent stability. There was no propagation of any fractures. At this point, size 36 mm head with 0 length was used and the Lui taper of the standard offset neck was dried and the head was malleted in without any complication. This did stabilize and locked in the head. At this point, the entire construct was reduced. Additional intraoperative x-rays were obtained, which showed no further fracture and the position of all the implants was excellent and leg lengths appeared to be equal as measured by the lesser trochanter and the pelvic tilt. At this point, all wounds were thoroughly irrigated using copious amount of fluid. The short external rotators were closed using drill holes into the greater trochanter. The tensor fascia was closed using #1 Vicryl suture. Subcutaneous tissue was closed using 2-0 Vicryl suture. Skin was closed using 3-0 Monocryl suture. Dermabond was applied and sterile dressing was applied and the patient was placed in abduction pillow and was taken to recovery room in stable condition. All lap counts and instrument counts were correct. Vishnu Davila M.D. DR: RAY JOB#: [id number] CC: SAM
--- NOTE | 2020-04-06 19:30 | NUR ---
NURSE NOTES: Pt. received from WEI Beltran. PT. AAOx4, on 2L NC, breathing even and unlabored, no indications of respiratory distress, no complaints of pain, IV noted right wrist 20g, intact and patent with D51/2 NS and 20 KCl at 75. Dressing CDI, abduction pillow intact. Endorsed pt. is yet to have urine, will follow up with bladder scan. Bed low and locked, side rails x2 up, and call light in reach.
--- NOTE | 2020-04-06 19:32 | NUR ---
NURSE HAND-OFF: Important Events on Shift: Pt admitted to unit from PACU; pt has yet to void; endorsed to casino shift manager RN. Patient Status: Stable Diet: Regular Pending Orders: None Pending Results/Labs: None Pending MD notification: None Latest Vital Signs: Temperature 98.1 , Pulse 89 , B/P 93 /65 , Respiratory Rate 16 , O2 SAT 99 , Room Air, O2 Flow Rate 2 Vital Sign Comment: Stable Latest Lui Fall Score: 55 Fall Risk: High Risk Safety Measures: Call light , Bed Alarm , Side Rails Side Rails x1, Bed position Low and Locked. Fall Precautions: Report given to WEI Marie.
[2020-04-06] MEDS: TraZODone 50mg tab ORAL SCH (21:42)
--- NOTE | 2020-04-06 22:49 | NUR ---
NURSE NOTES: Pt. max assist with 2 RNs to bedside commode. Output 300cc, PVR with bladder scan 300cc. Dr. Barron notified and Dr. Sanchez notified, no new orders received. Charge nurse aware.
[2020-04-06] MEDS: Zolpidem 5mg tab ORAL PRN (23:29)
[2020-04-07] VITALS: BP 124/82
[2020-04-07] MEDS: HYDROcodone/Acetamin 7.5/325 tab ORAL PRN (03:33)
[2020-04-07] MEDS: D5 1/2NS w/KCl 20mEq 1,000 ML IV SCH (03:33)
[2020-04-07 04:00] VITALS: BP 102/71
[2020-04-07 06:13] LABS: BASOPHILS % (AUTO) 0.3 % (0.0-2.0); EOSINOPHILS % (AUTO) 0.3 % (0.0-3.0); HEMATOCRIT 26.9 % (37.0-47.0); HEMOGLOBIN 8.7 G/DL (12.0-16.0); MEAN CORPUSCULAR VOLUME 89 FL (80-99); MONOCYTES % (AUTO) 6.8 % (1.0-10.0); NEUTROPHILS % (AUTO) 81.6 % (45.0-75.0); PLATELET COUNT 156 K/UL (150-450); RED BLOOD COUNT 3.03 M/UL (4.20-5.40); RED CELL DISTRIBUTION WIDTH 15.5 % (11.6-14.8); WHITE BLOOD COUNT 5.4 K/UL (4.8-10.8)
[2020-04-07 06:38] LABS: ANION GAP 3 mmol/L (5-15); BLOOD UREA NITROGEN 14 mg/dL (7-18); CALCIUM 7.8 MG/DL (8.5-10.1); CARBON DIOXIDE 29 MMOL/L (21-32); CHLORIDE 106 MMOL/L (98-107); CREATININE 0.8 MG/DL (0.55-1.30); POTASSIUM 4.3 MMOL/L (3.5-5.1); SODIUM 138 MMOL/L (136-145)
--- NOTE | 2020-04-07 07:30 | NUR ---
NURSE NOTES: Patient is in bed awake and able to verbalize needs. Stable. Abduction pillow in place, surgical dressing c/d/i. Patient appears hostile towards staff. Patient instructed to use call light for assistance, verbalized understanding. Patient is in bed in locked and lowest position with call light within reach. All safety measures provided. Will continue to monitor.
--- NOTE | 2020-04-07 07:32 | NUR ---
NURSE HAND-OFF: Important Events on Shift:[voided 800cc, max assist to bedside commode, pain managed] Patient Status: awake Diet: regular Pending Orders: na Pending Results/Labs:na Pending MD notification:na Latest Vital Signs: Temperature 98.2 , Pulse 90 , B/P 102 /71 , Respiratory Rate 20 , O2 SAT 98 , Room Air, O2 Flow Rate 3 . Vital Sign Comment: stable Latest Lui Fall Score: 55 Fall Risk: High Risk Safety Measures: Call light Within Reach, Bed Alarm , Side Rails Side Rails x2, Bed position Low and Locked. Fall Precautions: Patient Fall Education Report given to WEI Ham.
--- NOTE | 2020-04-07 07:53 | 48 Hour Post Anesthesia Eval ---
Post Anesthesia Evaluation Procedure: R total hip arthroplasty Date of Evaluation: Apr 07, 2020 Time of Evaluation: 07:51 Blood Pressure Systolic: 122 0: 71 Pulse Rate: 90 Respiratory Rate: 20 Temperature (Fahrenheit): 98.2 O2 Sat by Pulse Oximetry: 98 Airway: patent Nausea: No Vomiting: No Pain Intensity: 3 Hydration Status: adequate Cardiopulmonary Status: Stable Mental Status/LOC: patient returned to baseline Follow-up Care/Observations: 0 Post-Anesthesia Complications: 0 Follow-up care needed: N/A Rod Lopez MD Apr 07, 2020 07:53
[2020-04-07 08:00] VITALS: BP 104/66
--- NOTE | 2020-04-07 08:07 | Orthopedic Progress Note ---
Orthopedic - Progress Note Subjective Symptoms: c/o post-op hip pain Objective Laboratory Tests Test 04/07/20 05:57 White Blood Count 5.4 K/UL (4.8-10.8) Red Blood Count 3.03 M/UL (4.20-5.40) L Hemoglobin 8.7 G/DL (12.0-16.0) L Hematocrit 26.9 % (37.0-47.0) L Mean Corpuscular Volume 89 FL (80-99) Mean Corpuscular Hemoglobin 28.7 PG (27.0-31.0) Mean Corpuscular Hemoglobin Concent 32.3 G/DL (32.0-36.0) Red Cell Distribution Width 15.5 % (11.6-14.8) H Platelet Count 156 K/UL (150-450) Mean Platelet Volume 8.4 FL (6.5-10.1) Neutrophils (%) (Auto) 81.6 % (45.0-75.0) H Lymphocytes (%) (Auto) 11.0 % (20.0-45.0) L Monocytes (%) (Auto) 6.8 % (1.0-10.0) Eosinophils (%) (Auto) 0.3 % (0.0-3.0) Basophils (%) (Auto) 0.3 % (0.0-2.0) Sodium Level 138 MMOL/L (136-145) Potassium Level 4.3 MMOL/L (3.5-5.1) Chloride Level 106 MMOL/L (98-107) Carbon Dioxide Level 29 MMOL/L (21-32) Anion Gap 3 mmol/L (5-15) L Blood Urea Nitrogen 14 mg/dL (7-18) Creatinine 0.8 MG/DL (0.55-1.30) Estimat Glomerular Filtration Rate > 60 mL/min (>60) Glucose Level 121 MG/DL (74-106) H Calcium Level 7.8 MG/DL (8.5-10.1) L Last 24 Hour Vital Signs Date Time Temp Pulse Resp B/P (MAP) Pulse Ox O2 Delivery O2 Flow Rate FiO2 04/07/20 07:53 90 20 98 04/07/20 04:00 98.2 90 20 102/71 (81) 98 04/07/20 00:00 98.1 75 18 124/82 (96) 95 12/15/20 21:00 Room Air 04/06/20 20:00 97.8 68 18 98/66 (77) 99 04/06/20 19:04 89 16 93/65 99 04/06/20 18:29 93 16 94/63 100 04/06/20 15:30 98.1 98 18 96/63 (74) 98 04/06/20 13:30 97.9 77 18 113/77 (89) 100 04/06/20 13:00 97.6 73 18 102/65 (77) 100 04/06/20 13:00 Room Air 04/06/20 12:35 97.6 66 15 102/69 100 Nasal Cannula 3 04/06/20 12:15 66 12 97/70 100 Nasal Cannula 3 04/06/20 12:00 69 13 98/69 100 Nasal Cannula 3 04/06/20 11:45 67 15 97/70 100 Simple Mask 6 04/06/20 11:35 71 13 100/69 100 Simple Mask 6 04/06/20 11:25 71 13 99/70 100 Simple Mask 6 04/06/20 11:23 74 20 99 04/06/20 11:20 74 16 101/71 100 Simple Mask 6 04/06/20 11:16 97.6 87 17 98/73 100 Simple Mask 6 Intake and Output 04/06/20 04/07/20 19:00 07:00 Intake Total 1680 ml 1325 ml Output Total 450 ml 800 ml Balance 1230 ml 525 ml Intake Oral 480 ml 500 ml IV Total 1200 ml 825 ml Output Urine Total 300 ml 800 ml Estimated Blood Loss 150 ml # Voids 2 Laboratory Tests Test 04/07/20 05:57 White Blood Count 5.4 K/UL (4.8-10.8) Red Blood Count 3.03 M/UL (4.20-5.40) L Hemoglobin 8.7 G/DL (12.0-16.0) L Hematocrit 26.9 % (37.0-47.0) L Mean Corpuscular Volume 89 FL (80-99) Mean Corpuscular Hemoglobin 28.7 PG (27.0-31.0) Mean Corpuscular Hemoglobin Concent 32.3 G/DL (32.0-36.0) Red Cell Distribution Width 15.5 % (11.6-14.8) H Platelet Count 156 K/UL (150-450) Mean Platelet Volume 8.4 FL (6.5-10.1) Neutrophils (%) (Auto) 81.6 % (45.0-75.0) H Lymphocytes (%) (Auto) 11.0 % (20.0-45.0) L Monocytes (%) (Auto) 6.8 % (1.0-10.0) Eosinophils (%) (Auto) 0.3 % (0.0-3.0) Basophils (%) (Auto) 0.3 % (0.0-2.0) Sodium Level 138 MMOL/L (136-145) Potassium Level 4.3 MMOL/L (3.5-5.1) Chloride Level 106 MMOL/L (98-107) Carbon Dioxide Level 29 MMOL/L (21-32) Anion Gap 3 mmol/L (5-15) L Blood Urea Nitrogen 14 mg/dL (7-18) Creatinine 0.8 MG/DL (0.55-1.30) Estimat Glomerular Filtration Rate > 60 mL/min (>60) Glucose Level 121 MG/DL (74-106) H Calcium Level 7.8 MG/DL (8.5-10.1) L Wound: clean, dry, intact Drains: none Neuro Status: normal Vascular Status: normal Additional Comments xray excellent Assessment Post-op Diagnosis POD 1 Procedure Performed right total hip arthroplasty Plan Plan: PT, discharge plan - hopeful for d/c home tomorrow, other - will monitor H&H Tricia Dueñas Apr 07, 2020 08:07
[2020-04-07] MEDS: Docusate 100mg cap ORAL SCH ×3 (08:37→18:47)
[2020-04-07] MEDS: Calcium Carbonate 500mg w/Vit D 200iu tab ORAL SCH (08:37)
[2020-04-07] MEDS: Multivitamin w/Minerals tab ORAL SCH (08:37)
[2020-04-07] MEDS: Losartan 50mg tab ORAL SCH (09:00)
[2020-04-07] MEDS: LORazepam 1mg tab ORAL SCH ×2 (10:04→18:47)
--- NOTE | 2020-04-07 11:21 | NUR ---
HAND-OFF: Report given to Allison CARVAJAL.
--- NOTE | 2020-04-07 11:30 | NUR ---
NURSE NOTES: Received report from Fatoumata CARVAJAL. Patient is awake, sitting up in chair, in no distress. Updated on plan of care. Call light within reach.
[2020-04-07 12:00] VITALS: BP 101/65
--- NOTE | 2020-04-07 12:01 | Internal Med Progress Note ---
Subjective Date of Service: Apr 07, 2020 Physician Name Hans Min Attending Physician Vishnu Davila MD Current Medications Medications (Trade) Dose Ordered Sig/Samara Route PRN Reason Start Time Stop Time Status Last Admin Dose Admin Acetaminophen (Tylenol) 650 mg Q4H PRN ORAL Mild Pain (Pain Scale 1-3) 04/06/20 14:00 05/06/20 13:59 04/07/20 06:11 Acetaminophen/ Hydrocodone Bitart (Tenstrike 7.5/325) 1 tab Q4H PRN ORAL Moderate Pain (Pain Scale 4-6) 04/06/20 14:00 04/13/20 13:59 04/07/20 03:33 Amlodipine Besylate (Norvasc) 10 mg DAILY ORAL 04/07/20 09:00 05/07/20 08:59 Aspirin (ASA) 325 mg BID ORAL 04/06/20 18:00 05/21/20 17:59 04/07/20 08:37 Calcium/Vitamin D (OsCal D) 1 tab DAILY ORAL 04/07/20 09:00 07/06/20 08:59 04/07/20 08:37 Diphenhydramine HCl (Benadryl) 25 mg Q6H PRN ORAL Itching 04/06/20 17:00 05/06/20 16:59 04/07/20 03:39 Docusate Sodium (Colace) 100 mg THREE TIMES A DAY ORAL 04/06/20 18:00 05/06/20 17:59 04/07/20 08:37 Ferrous Sulfate (Feosol) 325 mg THREE TIMES A DAY ORAL 04/06/20 18:00 07/05/20 17:59 04/07/20 08:37 Hydromorphone HCl (Dilaudid) 1 mg Q4H PRN SUBQ Mild Pain (Pain Scale 1-3) 04/06/20 14:00 04/13/20 13:59 04/07/20 08:38 Hydromorphone HCl (Dilaudid) 2 mg Q4H PRN SUBQ Moderate Pain (Pain Scale 4-6) 04/06/20 13:30 04/13/20 13:29 Lorazepam (Ativan) 2 mg BID ORAL 04/06/20 18:00 04/13/20 17:59 04/07/20 10:04 Losartan Potassium (Cozaar) 50 mg DAILY ORAL 04/07/20 09:00 05/07/20 08:59 Magnesium Hydroxide (Mom) 30 ml DAILYPRN PRN ORAL Constipation 04/06/20 14:00 05/06/20 13:59 Multivitamins Therapeutic (Therapeutic Multivitamin) 1 ea DAILY ORAL 04/07/20 09:00 05/07/20 08:59 04/07/20 08:37 Pantoprazole (Protonix) 40 mg ACBREAKFAST ORAL 04/07/20 06:30 05/07/20 06:29 04/07/20 06:10 Prochlorperazine (Compazine) 10 mg Q6H PRN IVP Nausea & Vomiting 04/06/20 14:00 05/06/20 13:59 Trazodone HCl (Desyrel) 50 mg BEDTIME ORAL 04/06/20 21:00 05/06/20 20:59 04/06/20 21:42 Zolpidem Tartrate (Ambien) 5 mg BEDTIME PRN ORAL Insomnia 04/06/20 17:00 04/13/20 16:59 04/06/20 23:29 Allergies: Coded Allergies: No Known Allergies (Unverified , 12/05/19) ROS Limited/Unobtainable: No Constitutional: Reports: no symptoms HEENT: Reports: no symptoms Cardiovascular: Reports: no symptoms Respiratory: Reports: no symptoms Gastrointestinal/Abdominal: Reports: no symptoms Genitourinary: Reports: no symptoms Neurologic/Psychiatric: Reports: no symptoms Subjective 64 YO F admitted with osteoarthritis right hip. S/P right hip total arthroplasty 04/06/20. Cover for Int Kp-Dr Sanchez Objective Last Vital Signs Date Time Temp Pulse Resp B/P (MAP) Pulse Ox O2 Delivery O2 Flow Rate FiO2 04/07/20 10:35 105 18 104/66 99 04/07/20 09:00 Room Air 04/07/20 08:00 97.4 04/06/20 12:35 3 Laboratory Tests Test 04/07/20 05:57 White Blood Count 5.4 K/UL (4.8-10.8) Red Blood Count 3.03 M/UL (4.20-5.40) L Hemoglobin 8.7 G/DL (12.0-16.0) L Hematocrit 26.9 % (37.0-47.0) L Mean Corpuscular Volume 89 FL (80-99) Mean Corpuscular Hemoglobin 28.7 PG (27.0-31.0) Mean Corpuscular Hemoglobin Concent 32.3 G/DL (32.0-36.0) Red Cell Distribution Width 15.5 % (11.6-14.8) H Platelet Count 156 K/UL (150-450) Mean Platelet Volume 8.4 FL (6.5-10.1) Neutrophils (%) (Auto) 81.6 % (45.0-75.0) H Lymphocytes (%) (Auto) 11.0 % (20.0-45.0) L Monocytes (%) (Auto) 6.8 % (1.0-10.0) Eosinophils (%) (Auto) 0.3 % (0.0-3.0) Basophils (%) (Auto) 0.3 % (0.0-2.0) Sodium Level 138 MMOL/L (136-145) Potassium Level 4.3 MMOL/L (3.5-5.1) Chloride Level 106 MMOL/L (98-107) Carbon Dioxide Level 29 MMOL/L (21-32) Anion Gap 3 mmol/L (5-15) L Blood Urea Nitrogen 14 mg/dL (7-18) Creatinine 0.8 MG/DL (0.55-1.30) Estimat Glomerular Filtration Rate > 60 mL/min (>60) Glucose Level 121 MG/DL (74-106) H Calcium Level 7.8 MG/DL (8.5-10.1) L Intake and Output 04/06/20 04/07/20 19:00 07:00 Intake Total 1680 ml 1325 ml Output Total 450 ml 800 ml Balance 1230 ml 525 ml Intake Oral 480 ml 500 ml IV Total 1200 ml 825 ml Output Urine Total 300 ml 800 ml Estimated Blood Loss 150 ml # Voids 2 Objective General Appearance: WD/WN, no apparent distress, alert, mild distress EENT: PERRL/EOMI, normal ENT inspection Neck: non-tender, normal alignment, supple, normal inspection Cardiovascular: normal peripheral pulses, normal rate, regular rhythm, no gallop/murmur, no JVD Respiratory/Chest: chest wall non-tender, lungs clear, normal breath sounds, no respiratory distress, no accessory muscle use Abdomen: normal bowel sounds, non tender, soft, no organomegaly, no mass Extremities: normal range of motion, non-tender Neurologic: clerical adjuster II-XII grossly normal, no motor/sensory deficits Skin: normal pigmentation, warm/dry Assessment/Plan Problem List: (1) Osteoarthritis of right hip Assessment & Plan: S/P total right hip arthroplasty 04/06/20. Orhto=Dr Davila. (2) Right hip pain (3) HTN (hypertension) Assessment & Plan: Continue amlodipine and cozaar (4) GERD (gastroesophageal reflux disease) Assessment & Plan: continue protonix (5) Barretts esophagus (6) Anxiety Assessment & Plan: continue ativan (7) Depression, major Assessment & Plan: continue trazodone Status: progressing Assessment/Plan Discharge planning Hans Min MD Apr 07, 2020 12:01
--- NOTE | 2020-04-07 14:09 | NUR ---
CASE MANAGEMENT:INITIAL REVIEW 64 YR OLD FEMALE FROM HOME FOR PLANNED PROCEDURE CC;RT HIP OSTEOARTHRITIS SI;POD #1 RT HIP TOTAL ARTHROPLASTY 97.6 87 17 98/73 95% ON RA HIP/PELVIS CT ~ Postoperative right hip. No unusual features IS;CEFAZOLIN IV IVF D5W @ 75/HR ADMITTED TO MED SURG FOR POST OP CARE MED SURG STATUS DCP;FROM HOME
[2020-04-07 16:00] VITALS: BP 113/73
[2020-04-07] MEDS ORDERED: Tubing IV Secondary IV ONE (16:03)
--- NOTE | 2020-04-07 19:31 | NUR ---
NURSE HAND-OFF: Important Events on Shift: Patient requires max assist to get in and out of bed. Worked with PT. Patient Status: stable Diet: Regular Pending Orders: N/A Pending Results/Labs: N/A Pending MD notification: N/A Latest Vital Signs: Temperature 99.3 , Pulse 99 , B/P 113 /73 , Respiratory Rate 18 , O2 SAT 95 , Room Air. Vital Sign Comment: VS stable Latest Lui Fall Score: 55 Fall Risk: High Risk Safety Measures: Call light Within Reach, Bed Alarm , Side Rails Side Rails x2, Bed position Low and Locked. Fall Precautions: Patient Fall Education Report given to Jay CARVAJAL.
[2020-04-07 20:00] VITALS: BP 108/71
[2020-04-07] MEDS: TraZODone 50mg tab ORAL SCH (20:41)
--- NOTE | 2020-04-07 21:00 | NUR ---
NURSE NOTES: Received pt laying in bed AOX4, no complaints of pain at this time. R hip dressing C/D/I. IV patent and intact. NAD noted. Bed in lowest position and locked. Side rails up x 2. Call light within reach. Will continue to monitor.
[2020-04-07] MEDS: Zolpidem 5mg tab ORAL PRN (21:32)
[2020-04-08] VITALS: BP 121/69
[2020-04-08 04:00] VITALS: BP 114/80
[2020-04-08] MEDS: HYDROcodone/Acetamin 7.5/325 tab ORAL PRN ×2 (05:44→23:13)
--- NOTE | 2020-04-08 06:24 | NUR ---
NURSE NOTES: RIght hip dressing change done. Applied 4x4 and tegaderm, C/D/I.
--- NOTE | 2020-04-08 07:01 | NUR ---
HAND-OFF: Report given to: WEI Posada
--- NOTE | 2020-04-08 07:15 | NUR ---
NURSE HAND-OFF: Important Events on Shift: Pt requires max assist turning in bed, getting out of bed. Patient Status: Stable Diet: Regular Pending Orders: N/A Pending Results/Labs: CBC, BMP Pending MD notification:N/A Latest Vital Signs: Temperature 97.8 , Pulse 99 , B/P 114 /80 , Respiratory Rate 20 , O2 SAT 96 , Room Air, O2 Flow Rate 3 . Vital Sign Comment: Stable Latest Lui Fall Score: 55 Fall Risk: High Risk Safety Measures: Call light Within Reach, Bed Alarm , Side Rails Side Rails x2, Bed position Low and Locked. Fall Precautions: Patient Fall Education Report given to: WEI Posada
--- NOTE | 2020-04-08 07:38 | Orthopedic Progress Note ---
Orthopedic - Progress Note Subjective Symptoms: c/o post-op hip pain Additional Comments slow with PT, encouraged to stand up and walk Objective Last 24 Hour Vital Signs Date Time Temp Pulse Resp B/P (MAP) Pulse Ox O2 Delivery O2 Flow Rate FiO2 04/08/20 04:00 97.8 99 20 114/80 (91) 96 04/08/20 00:00 97.9 67 20 121/69 (86) 98 04/07/20 20:55 Room Air 04/07/20 20:00 97.7 108 20 108/71 (83) 96 04/07/20 18:47 99 18 113/73 95 04/07/20 16:00 99.3 99 18 113/73 (86) 95 04/07/20 12:00 99.4 109 18 101/65 (77) 98 04/07/20 10:35 105 18 104/66 99 04/07/20 10:04 105 18 104/66 99 04/07/20 09:00 Room Air 04/07/20 08:00 97.4 105 18 104/66 (79) 99 04/07/20 07:53 90 20 98 Intake and Output 04/07/20 04/08/20 19:00 07:00 Intake Total 600 ml 120 ml Balance 600 ml 120 ml Intake Oral 600 ml 120 ml # Voids 1 2 Wound: clean, dry Drains: none Neuro Status: normal Vascular Status: normal Plan Plan: PT, pain management, discharge plan Additional Comments consider rehab if slow with progress of PT Vishnu Davila MD Apr 08, 2020 07:38
[2020-04-08] MEDS ORDERED: Bisacodyl EC 5mg tab ORAL PRN (07:45)
[2020-04-08 08:00] VITALS: BP 131/83
[2020-04-08 08:21] LABS: BASOPHILS % (AUTO) 0.3 % (0.0-2.0); HEMOGLOBIN 8.6 G/DL (12.0-16.0); LYMPHOCYTES % (AUTO) 9.8 % (20.0-45.0); MEAN CORPUSCULAR VOLUME 87 FL (80-99); MONOCYTES % (AUTO) 11.4 % (1.0-10.0); NEUTROPHILS % (AUTO) 78.5 % (45.0-75.0); PLATELET COUNT 162 K/UL (150-450); RED BLOOD COUNT 2.98 M/UL (4.20-5.40); RED CELL DISTRIBUTION WIDTH 15.3 % (11.6-14.8); WHITE BLOOD COUNT 8.5 K/UL (4.8-10.8)
[2020-04-08 08:48] LABS: ANION GAP 7 mmol/L (5-15); BLOOD UREA NITROGEN 9 mg/dL (7-18); CALCIUM 7.9 MG/DL (8.5-10.1); CARBON DIOXIDE 26 MMOL/L (21-32); CHLORIDE 103 MMOL/L (98-107); CREATININE 0.7 MG/DL (0.55-1.30); POTASSIUM 3.7 MMOL/L (3.5-5.1); SODIUM 136 MMOL/L (136-145)
[2020-04-08] MEDS: Docusate 100mg cap ORAL SCH ×3 (09:57→16:59)
[2020-04-08] MEDS: Losartan 50mg tab ORAL SCH (09:58)
[2020-04-08] MEDS: LORazepam 1mg tab ORAL SCH ×2 (09:58→17:00)
[2020-04-08] MEDS: Multivitamin w/Minerals tab ORAL SCH (09:58)
[2020-04-08] MEDS: Calcium Carbonate 500mg w/Vit D 200iu tab ORAL SCH (09:58)
--- NOTE | 2020-04-08 11:25 | NUR ---
RADIOLOGY DEPT., RIGHT HIP AND PELVIS X-RAYS COMPLETED.-P.DYE
[2020-04-08 12:00] VITALS: BP 111/80
[2020-04-08] MEDS: Tylenol #3 tab (300mg/30mg) ORAL PRN (13:03)
--- NOTE | 2020-04-08 13:08 | NUR ---
PT NOTE Per Jai CARAVJAL patient with fracture R hip, scheduled for R hip revision arthroplasty tomorrow. Physical therapy on hold, will follow.
--- NOTE | 2020-04-08 13:47 | Anethesia Preoperative Eval ---
Anesthesia Pre-op PMH/ROS General Date of Evaluation: Apr 08, 2020 Time of Evaluation: 13:32 Anesthesiologist: Jessica ASA Score: ASA 3 Mallampati Score Class I : Soft palate, uvula, fauces, pillars visible Class II: Soft palate, uvula, fauces visible Class III: Soft palate, base of uvula visible Class IV: Only hard plate visible Mallampati Classification: Class II Surgeon: Lola Diagnosis: R Hip Pain Surgical Procedure: R Hip Total Arthroplasty Anesthesia History: none Social History: drug use - History Family History: no anesthesia problems Allergies: Coded Allergies: No Known Allergies (Unverified , 12/05/19) Medications: see eMAR Patient NPO?: Yes Past Medical History Cardiovascular: Reports: HTN Gastrointestinal/Genitourinary: Reports: GERD Neurologic/Psychiatric: Reports: depression/anxiety HEENT: Reports: cataract (L), cataract (R) Hematology/Immune: Reports: anemia PSxH Narrative: Cholecystectomy. [facility] Breast Implants, R and L Hip Replacements, [facility] Cat Ext IOL Anesthesia Pre-op Phys. Exam Physician Exam Last Vital Signs Date Time Temp Pulse Resp B/P (MAP) Pulse Ox O2 Delivery O2 Flow Rate FiO2 04/08/20 10:28 103 20 131/83 96 04/08/20 04:00 97.8 04/07/20 20:55 Room Air 04/06/20 12:35 3 Constitutional: NAD Neurologic: CN 2-12 intact Cardiovascular: RRR Respiratory: CTA Gastrointestinal: S/NT/ND Airway Exam Mallampati Score: Class II Anesthesia Pre-op A/P Labs Hematology Test 04/08/20 05:58 White Blood Count 8.5 K/UL (4.8-10.8) # Red Blood Count 2.98 M/UL (4.20-5.40) L Hemoglobin 8.6 G/DL (12.0-16.0) L Hematocrit 26.0 % (37.0-47.0) L Mean Corpuscular Volume 87 FL (80-99) Mean Corpuscular Hemoglobin 28.7 PG (27.0-31.0) Mean Corpuscular Hemoglobin Concent 32.9 G/DL (32.0-36.0) Red Cell Distribution Width 15.3 % (11.6-14.8) H Platelet Count 162 K/UL (150-450) Mean Platelet Volume 8.3 FL (6.5-10.1) Neutrophils (%) (Auto) 78.5 % (45.0-75.0) H Lymphocytes (%) (Auto) 9.8 % (20.0-45.0) L Monocytes (%) (Auto) 11.4 % (1.0-10.0) H Eosinophils (%) (Auto) 0.0 % (0.0-3.0) Basophils (%) (Auto) 0.3 % (0.0-2.0) Chemistry Test 04/08/20 05:58 Sodium Level 136 MMOL/L (136-145) Potassium Level 3.7 MMOL/L (3.5-5.1) Chloride Level 103 MMOL/L (98-107) Carbon Dioxide Level 26 MMOL/L (21-32) Anion Gap 7 mmol/L (5-15) Blood Urea Nitrogen 9 mg/dL (7-18) Creatinine 0.7 MG/DL (0.55-1.30) Estimat Glomerular Filtration Rate > 60 mL/min (>60) Glucose Level 114 MG/DL (74-106) H Calcium Level 7.9 MG/DL (8.5-10.1) L Risk Assessment & Plan Assessment: ASA 3 Plan: GA Status Change Before Surgery: No Pre-Antibiotics Drug: Rod Horner MD Apr 08, 2020 13:47
--- NOTE | 2020-04-08 13:52 | Orthopedic Progress Note ---
Orthopedic - Progress Note Objective Last 24 Hour Vital Signs Date Time Temp Pulse Resp B/P (MAP) Pulse Ox O2 Delivery O2 Flow Rate FiO2 04/08/20 10:28 103 20 131/83 96 04/08/20 09:58 131/83 04/08/20 09:58 103 20 131/83 96 04/08/20 09:58 103 131/83 04/08/20 04:00 97.8 99 20 114/80 (91) 96 04/08/20 00:00 97.9 67 20 121/69 (86) 98 04/07/20 20:55 Room Air 04/07/20 20:00 97.7 108 20 108/71 (83) 96 04/07/20 18:47 99 18 113/73 95 04/07/20 16:00 99.3 99 18 113/73 (86) 95 Intake and Output 04/07/20 04/08/20 19:00 07:00 Intake Total 600 ml 120 ml Balance 600 ml 120 ml Intake Oral 600 ml 120 ml # Voids 1 2 Laboratory Tests Test 04/08/20 05:58 White Blood Count 8.5 K/UL (4.8-10.8) # Red Blood Count 2.98 M/UL (4.20-5.40) L Hemoglobin 8.6 G/DL (12.0-16.0) L Hematocrit 26.0 % (37.0-47.0) L Mean Corpuscular Volume 87 FL (80-99) Mean Corpuscular Hemoglobin 28.7 PG (27.0-31.0) Mean Corpuscular Hemoglobin Concent 32.9 G/DL (32.0-36.0) Red Cell Distribution Width 15.3 % (11.6-14.8) H Platelet Count 162 K/UL (150-450) Mean Platelet Volume 8.3 FL (6.5-10.1) Neutrophils (%) (Auto) 78.5 % (45.0-75.0) H Lymphocytes (%) (Auto) 9.8 % (20.0-45.0) L Monocytes (%) (Auto) 11.4 % (1.0-10.0) H Eosinophils (%) (Auto) 0.0 % (0.0-3.0) Basophils (%) (Auto) 0.3 % (0.0-2.0) Sodium Level 136 MMOL/L (136-145) Potassium Level 3.7 MMOL/L (3.5-5.1) Chloride Level 103 MMOL/L (98-107) Carbon Dioxide Level 26 MMOL/L (21-32) Anion Gap 7 mmol/L (5-15) Blood Urea Nitrogen 9 mg/dL (7-18) Creatinine 0.7 MG/DL (0.55-1.30) Estimat Glomerular Filtration Rate > 60 mL/min (>60) Glucose Level 114 MG/DL (74-106) H Calcium Level 7.9 MG/DL (8.5-10.1) L Plan Additional Comments Xrays and CT scan obtained today due to increased pain. A spiral fracture of f emur extending beyond the prosthesis is noted. Implant subsidence is noted. Discussed findings with the patient and plan on revision with ORIF of the fracture and revision with long fluted stem tomorrow. Patient agrees and consent was obtained. Patient will be transfused with 2 units of PRBC due to hgb 8.6 and anticipation of the surgery and blood loss. Thank you Vishnu Davila MD Apr 08, 2020 13:52
--- NOTE | 2020-04-08 14:09 | Diagnostic Imaging Report ---
Indication: Hip pain, status post right hip arthroplasty Technique: Noncontrast spiral acquisitions obtained through the right hip Multiplanar reconstructions were generated. Total dose length product 261 mGycm. CTDIvol(s) 6 mGy. Radiation dose was minimized using automated exposure control Comparison: Plain radiographs dated 04/08/2020 and 04/06/2020 Findings: There is a right hip arthroplasty prosthesis in place. The hardware appears well aligned and intact. However, there is a fracture of the proximal right femur, with the fracture line extending along the medial border of the femoral stem of the prosthesis and reaching nearly as far distally as the prosthesis itself. This confirms findings demonstrated on recent radiograph. In the subcutaneous fat of the right upper hip region, there is a 5.6 x 3.8 x 15.3 cm collection which demonstrates slightly higher than fluid attenuation. Gas is seen within the right hip region soft tissues, and there is infiltration of the subcutaneous fat as well as thickening of the right hip musculature. This presumably related to the surgical exposure. No intrapelvic hematoma demonstrated. A surgical staple line is seen and the left upper pelvis, probably involving small bowel. There is a pelvic calcification which could be a bladder stone, although this area is considerably obscured by streak artifacts in nature is indeterminate. There is a left hip prosthesis also noted. The prosthesis and surrounding bone appears intact. Impression: Positive for acute proximal right femur fracture, extending almost as far distally as the tip of the femoral stem of recently placed prosthesis. 5 x 6 x 3.8 x 15.3 cm fluid collection overlying the right hip, slightly higher than fluid attenuation and most likely representing a hematoma Recent postsurgical changes of the right hip, as described Evidence of prior bowel and left hip surgery incidentally noted Electronic medical record indicates referring orthopedist is already aware of these findings The CT scanner at [facility] is accredited by the [employer] and the scans are performed using protocols designed to limit radiation exposure to as low as reasonably achievable to attain images of sufficient resolution adequate for diagnostic evaluation.
--- NOTE | 2020-04-08 14:25 | Diagnostic Imaging Report ---
Indication: Right hip pain Technique: One view of the pelvis, one view of the right hip Comparison: 04/06/2020 Findings: Right hip arthroplasty prosthesis is again demonstrated. There is decreased soft tissue gas. A fracture line is seen through the proximal femur medial to the femoral stem of the prosthesis, and extending almost as far distally as the distal end of the prosthesis. Impression: Interim fracture of the proximal right femur
--- NOTE | 2020-04-08 14:30 | NUR ---
NURSE NOTES: Called blood bank to make sure blood is in process, awaiting call back
--- NOTE | 2020-04-08 14:44 | Internal Med Progress Note ---
Subjective Physician Name Oscar Sanchez Attending Physician Vishnu Davila MD Current Medications Medications (Trade) Dose Ordered Sig/Samara Route PRN Reason Start Time Stop Time Status Last Admin Dose Admin Acetaminophen/ Codeine Phosphate (Tylenol #3) 1 tab Q6H PRN ORAL mild pain 04/08/20 10:30 04/15/20 10:29 04/08/20 13:03 Acetaminophen/ Hydrocodone Bitart ([place] 7.5/325) 1 tab Q4H PRN ORAL Moderate Pain (Pain Scale 4-6) 04/06/20 14:00 04/13/20 13:59 04/08/20 05:44 Amlodipine Besylate (Norvasc) 10 mg DAILY ORAL 04/07/20 09:00 05/07/20 08:59 04/08/20 09:58 Aspirin (ASA) 325 mg BID ORAL 04/06/20 18:00 05/21/20 17:59 04/08/20 09:57 Bisacodyl (Dulcolax) 5 mg DAILYPRN PRN ORAL Constipation 04/08/20 07:45 07/07/20 07:44 Calcium/Vitamin D (OsCal D) 1 tab DAILY ORAL 04/07/20 09:00 07/06/20 08:59 04/08/20 09:58 Diphenhydramine HCl (Benadryl) 25 mg Q6H PRN ORAL Itching 04/06/20 17:00 05/06/20 16:59 04/07/20 03:39 Docusate Sodium (Colace) 100 mg THREE TIMES A DAY ORAL 04/06/20 18:00 05/06/20 17:59 04/08/20 13:03 Ferrous Sulfate (Feosol) 325 mg THREE TIMES A DAY ORAL 04/06/20 18:00 07/05/20 17:59 04/08/20 13:03 Hydromorphone HCl (Dilaudid) 2 mg Q4H PRN SUBQ Moderate Pain (Pain Scale 4-6) 04/06/20 13:30 04/13/20 13:29 04/08/20 03:27 Lorazepam (Ativan) 2 mg BID ORAL 04/06/20 18:00 04/13/20 17:59 04/08/20 09:58 Losartan Potassium (Cozaar) 50 mg DAILY ORAL 04/07/20 09:00 05/07/20 08:59 04/08/20 09:58 Magnesium Hydroxide (Mom) 30 ml DAILYPRN PRN ORAL Constipation 04/06/20 14:00 05/06/20 13:59 Multivitamins Therapeutic (Therapeutic Multivitamin) 1 ea DAILY ORAL 04/07/20 09:00 05/07/20 08:59 04/08/20 09:58 Pantoprazole (Protonix) 40 mg ACBREAKFAST ORAL 04/07/20 06:30 05/07/20 06:29 04/08/20 05:44 Prochlorperazine (Compazine) 10 mg Q6H PRN IVP Nausea & Vomiting 04/06/20 14:00 05/06/20 13:59 Trazodone HCl (Desyrel) 50 mg BEDTIME ORAL 04/06/20 21:00 05/06/20 20:59 04/07/20 20:41 Zolpidem Tartrate (Ambien) 5 mg BEDTIME PRN ORAL Insomnia 04/06/20 17:00 04/13/20 16:59 04/07/20 21:32 Allergies: Coded Allergies: No Known Allergies (Unverified , 12/05/19) Subjective awake, alert, responsive, complaining about right hip pain, hemoglobin: 8.6. Objective Last Vital Signs Date Time Temp Pulse Resp B/P (MAP) Pulse Ox O2 Delivery O2 Flow Rate FiO2 04/08/20 10:28 103 20 131/83 96 04/08/20 04:00 97.8 04/07/20 20:55 Room Air 04/06/20 12:35 3 Laboratory Tests Test 04/08/20 05:58 White Blood Count 8.5 K/UL (4.8-10.8) # Red Blood Count 2.98 M/UL (4.20-5.40) L Hemoglobin 8.6 G/DL (12.0-16.0) L Hematocrit 26.0 % (37.0-47.0) L Mean Corpuscular Volume 87 FL (80-99) Mean Corpuscular Hemoglobin 28.7 PG (27.0-31.0) Mean Corpuscular Hemoglobin Concent 32.9 G/DL (32.0-36.0) Red Cell Distribution Width 15.3 % (11.6-14.8) H Platelet Count 162 K/UL (150-450) Mean Platelet Volume 8.3 FL (6.5-10.1) Neutrophils (%) (Auto) 78.5 % (45.0-75.0) H Lymphocytes (%) (Auto) 9.8 % (20.0-45.0) L Monocytes (%) (Auto) 11.4 % (1.0-10.0) H Eosinophils (%) (Auto) 0.0 % (0.0-3.0) Basophils (%) (Auto) 0.3 % (0.0-2.0) Sodium Level 136 MMOL/L (136-145) Potassium Level 3.7 MMOL/L (3.5-5.1) Chloride Level 103 MMOL/L (98-107) Carbon Dioxide Level 26 MMOL/L (21-32) Anion Gap 7 mmol/L (5-15) Blood Urea Nitrogen 9 mg/dL (7-18) Creatinine 0.7 MG/DL (0.55-1.30) Estimat Glomerular Filtration Rate > 60 mL/min (>60) Glucose Level 114 MG/DL (74-106) H Calcium Level 7.9 MG/DL (8.5-10.1) L Intake and Output 04/07/20 04/08/20 19:00 07:00 Intake Total 600 ml 120 ml Balance 600 ml 120 ml Intake Oral 600 ml 120 ml # Voids 1 2 Objective General: No acute distress, awake and alert HEENT: NCAT, sclera anicteric, PERRL, EOMI. Neck: Supple, no significant jugular venous distention, Lungs: Good inspiratory effort, no accessory muscle use, clear to auscultation bilaterally, no Wheeze or Rales. Heart: Regular rate and rhythm, normal S1/S2, no murmurs/gallops Abdomen: soft, nontender, nondistended. Normoactive bowel sounds. / Rectal: Refused and deferred. Extremities: No Cyanosis , clubbing or edema. right hip surgical incision intact, tenderness over the surgical incision. Neuro: A&O x 3, Able to move all extremities Skin: warm, no rashes or lesions Psych: Normal mood and affect Assessment/Plan Assessment/Plan (1) Osteoarthritis of right hip Assessment & Plan: S/P total right hip arthroplasty 04/06/20. Orhto=Dr Samira grande. (2) Right hip pain (3) HTN (hypertension) Assessment & Plan: Continue amlodipine and cozaar (4) GERD (gastroesophageal reflux disease) Assessment & Plan: continue protonix (5) Barretts esophagus (6) Anxiety Assessment & Plan: continue ativan (7) Depression, major Assessment & Plan: continue trazodone follow-up with orthopedics recommendation: Xrays and CT scan obtained today due to increased pain. A spiral fracture of femur extending beyond the prosthesis is noted. Implant subsidence is noted. Discussed findings with the patient and plan on revision with ORIF of the fracture and revision with long fluted stem tomorrow Oscar Sanchez MD Apr 08, 2020 14:44
[2020-04-08 16:00] VITALS: BP 99/79
--- NOTE | 2020-04-08 16:00 | NUR ---
NURSE NOTES: Per blood bank they will call as soon as the blood is ready, stated that there is a backlog of orders
[2020-04-08] MEDS ORDERED: ASPIRIN325 MG ORAL (17:46)
[2020-04-08] MEDS ORDERED: BACLOFEN10 MG ORAL (17:46)
[2020-04-08] MEDS ORDERED: ZOLPIDEM TARTRAT5 MG ORAL (17:46)
[2020-04-08] MEDS ORDERED: OMEPRAZOLE20 M3 ORAL (17:46)
[2020-04-08] MEDS ORDERED: MELOXICAM15 MG PO (17:46)
[2020-04-08] MEDS ORDERED: ACETAMINOPHEN-1 EAC1 ORAL (17:50)
--- NOTE | 2020-04-08 18:50 | NUR ---
NURSE NOTES: One unit of PRBCs started infusing, endorsed to racetrack steward RN.
--- NOTE | 2020-04-08 19:20 | NUR ---
HAND-OFF: Report given to Vickie CARVAJAL.
[2020-04-08 20:00] VITALS: BP 107/72
--- NOTE | 2020-04-08 20:30 | NUR ---
NURSES NOTE: Received report from WEI Vergara. Rounds made. Pt in bed, A/OX4, denies pain at this moment but request a sleep aid. No outward s/s of distress noted. Breathing pattern is even and unlabored on RA. Pt receiving packed red blood cell infusion. Second bag to he hung and infused by NOC shift RN. VS have been stable and pt has handled transfusion well thus far. No adverse side effects noted. IV R hand is intact. Dressing R hip is clean dry intact. Abduction pillow in place. Pt will continue to be monitored.
[2020-04-08] MEDS: Zolpidem 5mg tab ORAL PRN (20:31)
[2020-04-08] MEDS: TraZODone 50mg tab ORAL SCH (20:32)
[2020-04-09] VITALS (15 sets, daily range): BP systolic 113–134; BP diastolic 74–91
[2020-04-09] MEDS: Tylenol #3 tab (300mg/30mg) ORAL PRN (03:49)
[2020-04-09 05:32] LABS: BASOPHILS % (AUTO) 1.4 % (0.0-2.0); EOSINOPHILS % (AUTO) 0.1 % (0.0-3.0); HEMATOCRIT 27.7 % (37.0-47.0); HEMOGLOBIN 9.9 G/DL (12.0-16.0); LYMPHOCYTES % (AUTO) 11.6 % (20.0-45.0); MEAN CORPUSCULAR VOLUME 84 FL (80-99); MONOCYTES % (AUTO) 14.9 % (1.0-10.0); PLATELET COUNT 141 K/UL (150-450); RED BLOOD COUNT 3.31 M/UL (4.20-5.40); RED CELL DISTRIBUTION WIDTH 14.7 % (11.6-14.8); WHITE BLOOD COUNT 9.6 K/UL (4.8-10.8)
[2020-04-09 05:41] LABS: ANION GAP 5 mmol/L (5-15); BLOOD UREA NITROGEN 8 mg/dL (7-18); CARBON DIOXIDE 27 MMOL/L (21-32); CHLORIDE 108 MMOL/L (98-107); CREATININE 0.6 MG/DL (0.55-1.30); POTASSIUM 3.4 MMOL/L (3.5-5.1); SODIUM 140 MMOL/L (136-145)
--- NOTE | 2020-04-09 07:01 | NUR ---
NURSE HAND-OFF: Important Events on Shift:[PRBC ADMINISTERED X2 BAGS 250ML EACH] Patient Status: [STABLE] Diet: [NPO OF 0000] Pending Orders: [NONE] Pending Results/Labs:[NONE] Pending MD notification:[Hgb 9.9 RBC 3.31 Hct 27.7] Latest Vital Signs: Temperature 98.5 , Pulse 95 , B/P 114 /76 , Respiratory Rate 18 , O2 SAT 96 , Room Air, O2 Flow Rate 3 . Vital Sign Comment: [Within Normal Limits] Latest Lui Fall Score: 55 Fall Risk: High Risk Safety Measures: Call light Within Reach, Bed Alarm , Side Rails Side Rails x2, Bed position Low and Locked. Fall Precautions: Patient Fall Education Report given to [].
--- NOTE | 2020-04-09 07:45 | NUR ---
NURSE NOTES: Received report from Vickie CARVAJAL. Patient awake, A&O x4, calm. Patient not in distress. Patient in bed, max assist, with visible external rotation of Right foot. IV on Right forearm saline lock. Bed in lowest position, side rails up, call light in reach. Surgical dressing clean and intact. Awaiting surgery for ORIF/revision this afternoon.
--- NOTE | 2020-04-09 07:48 | NUR ---
HAND OFF: Report given to Allison CARVAJAL. ANGELA CARVAJAL.
--- NOTE | 2020-04-09 08:45 | NUR ---
NURSE NOTES: Called imaging for STAT XRAY.
[2020-04-09] MEDS: Losartan 50mg tab ORAL SCH (09:23)
[2020-04-09] MEDS: Multivitamin w/Minerals tab ORAL SCH (09:23)
[2020-04-09] MEDS: Calcium Carbonate 500mg w/Vit D 200iu tab ORAL SCH (09:23)
[2020-04-09] MEDS: Docusate 100mg cap ORAL SCH ×2 (09:24→18:00)
[2020-04-09] MEDS: LORazepam 1mg tab ORAL SCH ×2 (09:24→18:00)
--- NOTE | 2020-04-09 10:29 | NUR ---
RADIOLOGY DEPT., RIGHT FEMUR X-RAYS COMPLETED.-P.DYE
--- NOTE | 2020-04-09 11:35 | NUR ---
NURSE NOTES: Patient taken to OR by transport.
[2020-04-09] MEDS ORDERED: Sterile Water Irrig 1000ml IRRIG ONE (12:00)
[2020-04-09] MEDS ORDERED: NS Irrig 1000ml ONE (12:00)
[2020-04-09] MEDS ORDERED: LR 1000ml ONE (12:00)
[2020-04-09] MEDS ORDERED: Bupivacaine 0.5% Inj 30 ml vial INJ ONE (12:08)
[2020-04-09] MEDS ORDERED: Bacitracin 50000 Units Vial ONE (12:09)
[2020-04-09] MEDS ORDERED: Tranexamic Acid 1,000 MG in NS 65 ML IVPB SCH (12:15)
[2020-04-09] MEDS ORDERED: Lidocaine 1% MPF 10mg/ml 5ml ONE (12:18)
[2020-04-09] MEDS ORDERED: NS 275ml ONE (12:25)
[2020-04-09] MEDS ORDERED: Tubing Blood Filter IV ONE (12:25)
--- NOTE | 2020-04-09 12:36 | Pre-Procedure Note/Attestation ---
Pre-Procedure Note/Attestation Complete Prior to Procedure Planned Procedure: right Procedure Narrative: right femur ORIF, with revision hip arthroplasty Indications for Procedure Pre-Operative Diagnosis: right femur fracture Attestation I attest that I discussed the nature of the procedure; its benefits; risks and complications; and alternatives (and the risks and benefits of such altern atives), prior to the procedure, with the patient (or the patient's legal career representative). I attest that, if there was a reasonable possibility of needing a blood transfusion, the patient (or the patient's legal career representative) was given the [facility] standardized written summary, pursuant to the Alvaro Allison Blood Safety Act ([place] Health and Safety Code # 1645, as amended). I attest that I re-evaluated the patient just prior to the surgery and that there has been no change in the patient's H&P, except as documented below: None Vishnu Davila MD Apr 09, 2020 12:36
[2020-04-09] MEDS: ceFAZolin 2gm/D5W 50ml Premix IV SCH (12:41)
[2020-04-09] MEDS ORDERED: Tylenol #3 tab (300mg/30mg) ORAL PRN (12:45)
--- NOTE | 2020-04-09 13:07 | Immediate Post-Op Evaluation ---
Immediate Post-Op Evalulation Immediate Post-Op Evalulation Procedure: R Hip Total Arthroplasty Date of Evaluation: Apr 09, 2020 Time of Evaluation: 17:10 IV Fluids: 1100 LR Blood Products: 0 Estimated Blood Loss: 100 Urinary Output: 575 Blood Pressure Systolic: 122 Blood Pressure Diastolic: 77 Pulse Rate: 105 Respiratory Rate: 16 O2 Sat by Pulse Oximetry: 100 Temperature (Fahrenheit): 98.4 Pain Score (1-10): 2 Nausea: No Vomiting: No Complications 0 Patient Status: awake, reacts, patent, none Hydration Status: adequate Dru Gram Ancef IV Given Within 1 Hr of Incision: Yes Time Given: 12:41 Rod Lopez MD Apr 09, 2020 13:07
--- NOTE | 2020-04-09 13:08 | 48 Hour Post Anesthesia Eval ---
Post Anesthesia Evaluation Procedure: R Hip Total Arthroplasty Date of Evaluation: Apr 09, 2020 Time of Evaluation: 19:23 Blood Pressure Systolic: 128 0: 81 Pulse Rate: 101 Respiratory Rate: 18 Temperature (Fahrenheit): 98.4 O2 Sat by Pulse Oximetry: 100 Airway: patent Nausea: No Vomiting: No Pain Intensity: 3 Hydration Status: adequate Cardiopulmonary Status: Stable Mental Status/LOC: patient returned to baseline Follow-up Care/Observations: 0 Post-Anesthesia Complications: 0 Follow-up care needed: N/A Rod Lopez MD Apr 09, 2020 13:08
[2020-04-09] MEDS ORDERED: ceFAZolin sod 2 GM in D5W 110 ML IV SCH (14:00)
--- NOTE | 2020-04-09 14:09 | Internal Med Progress Note ---
Subjective Physician Name Oscar Sanchez Attending Physician Vishnu Davila MD Current Medications Medications (Trade) Dose Ordered Sig/Samara Route PRN Reason Start Time Stop Time Status Last Admin Dose Admin Acetaminophen (Tylenol) 650 mg Q4H PRN ORAL Mild Pain (Pain Scale 1-3) 04/09/20 12:45 05/09/20 12:44 UNV Acetaminophen/ Codeine Phosphate (Tylenol #3) 1 tab Q6H PRN ORAL mild pain 04/08/20 10:30 04/15/20 10:29 04/09/20 03:49 Acetaminophen/ Codeine Phosphate (Tylenol #3) 1 tab Q6H PRN ORAL For Pain 04/09/20 12:45 04/16/20 12:44 UNV Acetaminophen/ Hydrocodone Bitart ([place] 7.5/325) 1 tab Q4H PRN ORAL Moderate Pain (Pain Scale 4-6) 04/06/20 14:00 04/13/20 13:59 04/08/20 23:13 Acetaminophen/ Hydrocodone Bitart ([place] 7.5/325) 1 tab Q4H PRN ORAL Moderate Pain (Pain Scale 4-6) 04/09/20 12:45 04/16/20 12:44 UNV Amlodipine Besylate (Norvasc) 10 mg DAILY ORAL 04/07/20 09:00 05/07/20 08:59 04/09/20 09:24 Aspirin (ASA) 325 mg BID ORAL 04/06/20 18:00 05/21/20 17:59 04/08/20 16:59 Aspirin (ASA) 325 mg BID ORAL 04/10/20 18:00 05/25/20 17:59 UNV Bisacodyl (Dulcolax) 5 mg DAILYPRN PRN ORAL Constipation 04/08/20 07:45 07/07/20 07:44 Calcium/Vitamin D (OsCal D) 1 tab DAILY ORAL 04/07/20 09:00 07/06/20 08:59 04/09/20 09:23 Cefazolin Sodium 2 gm/Dextrose 110 ml @ 220 mls/hr EVERY 8 HOURS IV 04/09/20 14:00 04/09/20 22:29 UNV Celecoxib (CeleBREX) 200 mg DAILY ORAL 04/10/20 09:00 07/09/20 08:59 UNV Dextrose/ Electrolytes 1,000 ml @ 75 mls/hr [id number] IV 04/09/20 12:45 05/09/20 12:44 UNV Diphenhydramine HCl (Benadryl) 25 mg Q6H PRN ORAL Itching 04/06/20 17:00 05/06/20 16:59 04/07/20 03:39 Docusate Sodium (Colace) 100 mg THREE TIMES A DAY ORAL 04/06/20 18:00 05/06/20 17:59 04/09/20 09:24 Docusate Sodium (Colace) 100 mg THREE TIMES A DAY ORAL 04/09/20 13:00 05/09/20 12:59 UNV Ferrous Sulfate (Feosol) 325 mg THREE TIMES A DAY ORAL 04/06/20 18:00 07/05/20 17:59 04/09/20 09:24 Ferrous Sulfate (Feosol) 325 mg THREE TIMES A DAY ORAL 04/09/20 13:00 07/08/20 12:59 UNV Hydromorphone HCl (Dilaudid) 1 mg Q4H PRN SUBQ Mild Pain (Pain Scale 1-3) 04/09/20 12:45 04/16/20 12:44 UNV Hydromorphone HCl (Dilaudid) 2 mg Q4H PRN SUBQ Moderate Pain (Pain Scale 4-6) 04/06/20 13:30 04/13/20 13:29 04/08/20 03:27 Lorazepam (Ativan) 2 mg BID ORAL 04/06/20 18:00 04/13/20 17:59 04/09/20 09:24 Losartan Potassium (Cozaar) 50 mg DAILY ORAL 04/07/20 09:00 05/07/20 08:59 04/09/20 09:23 Magnesium Hydroxide (Mom) 30 ml DAILYPRN PRN ORAL Constipation 04/06/20 14:00 05/06/20 13:59 Magnesium Hydroxide (Mom) 30 ml DAILYPRN PRN ORAL Constipation 04/09/20 12:45 05/09/20 12:44 UNV Multivitamins Therapeutic (Therapeutic Multivitamin) 1 ea DAILY ORAL 04/07/20 09:00 05/07/20 08:59 04/09/20 09:23 Pantoprazole (Protonix) 40 mg ACBREAKFAST ORAL 04/07/20 06:30 05/07/20 06:29 04/09/20 05:47 Pantoprazole (Protonix) 40 mg DAILY ORAL 04/10/20 09:00 05/10/20 08:59 UNV Prochlorperazine (Compazine) 10 mg Q6H PRN IVP Nausea & Vomiting 04/06/20 14:00 05/06/20 13:59 Prochlorperazine (Compazine) 10 mg Q6H PRN IVP Nausea & Vomiting 04/09/20 12:45 05/09/20 12:44 UNV Trazodone HCl (Desyrel) 50 mg BEDTIME ORAL 04/06/20 21:00 05/06/20 20:59 04/08/20 20:32 Zolpidem Tartrate (Ambien) 5 mg BEDTIME PRN ORAL Insomnia 04/06/20 17:00 04/13/20 16:59 04/08/20 20:31 Allergies: Coded Allergies: No Known Allergies (Unverified , 12/05/19) Subjective awake, alert, responsive, complaining about right hip pain, hemoglobin: 9.9. Objective Last Vital Signs Date Time Temp Pulse Resp B/P (MAP) Pulse Ox O2 Delivery O2 Flow Rate FiO2 04/09/20 09:24 92 18 116/80 97 04/09/20 09:00 Room Air 04/09/20 08:00 98.9 04/06/20 12:35 3 Laboratory Tests Test 04/09/20 05:11 White Blood Count 9.6 K/UL (4.8-10.8) Red Blood Count 3.31 M/UL (4.20-5.40) L Hemoglobin 9.9 G/DL (12.0-16.0) L Hematocrit 27.7 % (37.0-47.0) L Mean Corpuscular Volume 84 FL (80-99) Mean Corpuscular Hemoglobin 30.1 PG (27.0-31.0) Mean Corpuscular Hemoglobin Concent 35.8 G/DL (32.0-36.0) Red Cell Distribution Width 14.7 % (11.6-14.8) Platelet Count 141 K/UL (150-450) L Mean Platelet Volume 9.0 FL (6.5-10.1) Neutrophils (%) (Auto) 72.0 % (45.0-75.0) Lymphocytes (%) (Auto) 11.6 % (20.0-45.0) L Monocytes (%) (Auto) 14.9 % (1.0-10.0) H Eosinophils (%) (Auto) 0.1 % (0.0-3.0) Basophils (%) (Auto) 1.4 % (0.0-2.0) Sodium Level 140 MMOL/L (136-145) Potassium Level 3.4 MMOL/L (3.5-5.1) L Chloride Level 108 MMOL/L (98-107) H Carbon Dioxide Level 27 MMOL/L (21-32) Anion Gap 5 mmol/L (5-15) Blood Urea Nitrogen 8 mg/dL (7-18) Creatinine 0.6 MG/DL (0.55-1.30) Estimat Glomerular Filtration Rate > 60 mL/min (>60) Glucose Level 107 MG/DL (74-106) H Calcium Level 8.0 MG/DL (8.5-10.1) L Intake and Output 04/08/20 04/09/20 19:00 07:00 Intake Total 600 ml 240 ml Balance 600 ml 240 ml Intake Oral 600 ml 240 ml # Voids 3 3 # Bowel Movements 2 Objective General: No acute distress, awake and alert HEENT: NCAT, sclera anicteric, PERRL, EOMI. Neck: Supple, no significant jugular venous distention, Lungs: Good inspiratory effort, no accessory muscle use, clear to auscultation bilaterally, no Wheeze or Rales. Heart: Regular rate and rhythm, normal S1/S2, no murmurs/gallops Abdomen: soft, nontender, nondistended. Normoactive bowel sounds. / Rectal: Refused and deferred. Extremities: No Cyanosis , clubbing or edema. right hip surgical incision intact, tenderness over the surgical incision. Neuro: A&O x 3, Able to move all extremities Skin: warm, no rashes or lesions Psych: Normal mood and affect Assessment/Plan Assessment/Plan (1) Osteoarthritis of right hip Assessment & Plan: S/P total right hip arthroplasty 04/06/20. Orhto=Dr Davila. S/P ORIF of Femur and Revision Right hip hemiarthroplasty (04/09/20) (2) Right hip pain (3) HTN (hypertension) Assessment & Plan: Continue amlodipine and cozaar (4) GERD (gastroesophageal reflux disease) Assessment & Plan: continue protonix (5) Barretts esophagus (6) Anxiety Assessment & Plan: continue ativan (7) Depression, major Assessment & Plan: continue trazodone . Oscar Sanchez MD Apr 09, 2020 14:09
[2020-04-09] MEDS ORDERED: Hydrogen Peroxide 473ml Bottle TOPIC ONE ×2 (15:16→16:52)
--- NOTE | 2020-04-09 15:24 | Diagnostic Imaging Report ---
Indications: Right leg pain Technique: Two views of the right femur Comparison: Hip and pelvic radiograph of 04/08/2020 Findings: Vertically oriented fracture of the medial femoral shaft is demonstrated. There is a knee prosthesis which appears intact. No fracture. There are vascular calcifications distal to the stem of the hip prosthesis Impression: Right proximal femoral fracture, also previously reported. Other findings as noted
[2020-04-09] MEDS ORDERED: Vancomycin 1gm vial IVPB ONE (15:49)
[2020-04-09] MEDS ORDERED: fentaNYL 100 mcg/2 mL IV ONE (16:22)
[2020-04-09] MEDS ORDERED: HYDROmorphone 1mg/ml Carpuject SUBQ PRN (16:30)
--- NOTE | 2020-04-09 16:46 | Brief Operative Note ---
Immediate Post Operative Note Operative Note Chief Complaint: right leg pain Pre-op Diagnosis: right femur fracture Procedure: right femur orif and revision arthroplasty Post-op Diagnosis: same as pre-op Findings: consistent w/pre-op dx studies Surgeon: md markos Slagger: zuleima parker Additional Surgeons: md vilma Anesthesiologist: md jony Anesthesia: general Specimen: none Complications: none Condition: stable Fluids: ns Estimated Blood Loss: minimal Drains: none Implant(s) used?: Yes - Vishnu Salinas MD Apr 09, 2020 16:46
[2020-04-09] MEDS ORDERED: Hydromorphone 0.5mg/0.5ml inj IVP PRN (17:15)
[2020-04-09] MEDS ORDERED: LR 1000ml 1,000 ML IVLG SCH (17:15)
[2020-04-09] MEDS ORDERED: Meperidine 25mg/1ml Inj (FOR RIGORS ONLY) IV PRN (17:15)
[2020-04-09] MEDS ORDERED: Atropine Sulfate 0.4mg/ml inj IVP PRN (17:15)
[2020-04-09] MEDS ORDERED: HYDROcodone/Acetamin 5/325 tab ORAL PRN (17:15)
[2020-04-09] MEDS ORDERED: LORazepam Inj 2mg/ml 1ml IV PRN (17:15)
[2020-04-09] MEDS ORDERED: HYDROcodone/Acetamin 7.5/325 tab ORAL PRN (17:15)
[2020-04-09] MEDS ORDERED: Labetalol 5mg/ml 20ml vial IV PRN (17:15)
[2020-04-09] MEDS ORDERED: Midazolam 2mg/2ml Inj IVP PRN (17:15)
[2020-04-09] MEDS ORDERED: fentaNYL 100 mcg/2 mL IV PRN (17:15)
[2020-04-09] MEDS ORDERED: oxyCODONE HCL/Acetaminophen 5/325mg ORAL PRN (17:15)
[2020-04-09] MEDS ORDERED: DiphenhydrAMINE 50mg/ml Inj IVP PRN (17:15)
--- NOTE | 2020-04-09 18:03 | Diagnostic Imaging Report ---
Indication: Pain, intraoperative Technique: One view of the pelvis Comparison: 04/08/2020 Findings: Intraoperative images demonstrate revision of previously demonstrated right hip arthroplasty with a longer femoral stem and cerclage wires reducing the previously demonstrated fracture. Impression: Intraoperative imaging, as described
--- NOTE | 2020-04-09 18:20 | NUR ---
NURSE NOTES: Patient returned from OR, awake and oriented. Surgical site clean, dry, intact. IV intact. Neuro assessment intact, weakness on right leg/foot, patient had spinal block during surgery. Side rails upx2, bed low and locked, call light within reach.
--- NOTE | 2020-04-09 18:25 | Diagnostic Imaging Report ---
EXAM: XR Right Femur, 2 Views CLINICAL HISTORY: POST-OP TECHNIQUE: Frontal and lateral views of the right femur. COMPARISON: No relevant prior studies available. FINDINGS: Bones/joints: Status post recent total right hip arthroplasty. Left hip and right knee arthroplasty is noted. No acute fracture. No dislocation. Soft tissues: Mild gas and edema seen within the soft tissues of the right hip, likely post surgical. Phleboliths within the pelvis. IMPRESSION: Normal right femur x-rays.
--- NOTE | 2020-04-09 18:26 | Diagnostic Imaging Report ---
EXAM: XR Pelvis, 1 or 2 Views CLINICAL HISTORY: POST-OP TECHNIQUE: Frontal view of the pelvis. COMPARISON: No relevant prior studies available. FINDINGS: Bones/joints: Status post recent total right hip arthroplasty. Left hip arthroplasty is noted. No acute fracture. No dislocation. Soft tissues: Edema gas within the soft tissues of the right hip, consistent with recent surgery. Phleboliths within the pelvis. IMPRESSION: No acute fracture. Hardware appears intact.
[2020-04-09] MEDS: D5 1/2NS w/KCl 20mEq 1,000 ML IV SCH (18:41)
--- NOTE | 2020-04-09 19:30 | NUR ---
NURSE HAND-OFF: Important Events on Shift: S/P RIGHT HIP REVISION, RIGHT FEMUR ORIF Patient Status: STABLE Diet: REGULAR Pending Orders: N/A Pending Results/Labs: N/A Pending MD notification: N/A Latest Vital Signs: Temperature 99.1 , Pulse 102 , B/P 124 /78 , Respiratory Rate 18 , O2 SAT 96 , ROOM AIR Vital Sign Comment: VS STABLE Latest Lui Fall Score: 35 Fall Risk: Medium Risk Safety Measures: Call light Within Reach, Bed Alarm , Side Rails Side Rails x2, Bed position Low and Locked. Fall Precautions: Yellow Socks Report given to JOANN RN.
--- NOTE | 2020-04-09 19:30 | NUR ---
NURSE NOTES: Receive a report from WEI Cooper.
--- NOTE | 2020-04-09 19:30 | Operative Note - Dictated ---
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 POSTOPERATIVE DIAGNOSIS: Right hip status post total hip arthroplasty with periprosthetic fracture extending to the distal aspect of the prosthesis with instability and subsidence of the original stem. PROCEDURE: 1. Right hip revision total hip arthroplasty using Greenwood and Nephew revision femoral sleeveless component size 22 mm diameter, 240 mm length, high offset fluted stem with a 36 mm -3 head traversing the fracture at least 10 cm distally. 2. Open reduction internal fixation of the femur with 4 Greenwood and Nephew cerclage wires tensioned to 100 newtons. SURGEON: Jose Davila MD ASSISTANTS: 1. Rosalino Don MD 2. Tricia Dueñas PA-C ANESTHESIOLOGIST: Rod Lopez MD ANESTHESIA: General LMA anesthesia combined with spinal block for postoperative pain management. ESTIMATED BLOOD LOSS: 250 mL. COMPLICATIONS: None. BRIEF HISTORY: Patient is a pleasant 64-year-old female who underwent right total hip arthroplasty approximately 3 days ago. On the day of surgery and postop day #1, she did well and she was able to get up and move around. However, subsequently she complained about significantly increased pain and inability to lift her leg. On postop day #2, x-rays were obtained, which showed subsidence of the prosthesis as well as a spiral fracture of the proximal femur that extended distally to the tip of the prosthesis. After full discussion of risks and benefits of the surgery and complications associated with it including infection, bleeding, neurovascular complication, possibility of continued pain, possibility of extension of the fracture, possibility of need for further surgery, possibility of leg length discrepancy, possible DVT, PEs, infection requiring resection arthroplasty, and other complication that may arise, she opted for surgical treatment as described above. OPERATIVE PROCEDURE: Patient was brought to the operating table and was placed supine. All pressure points were well padded. Spinal anesthesia was induced and general LMA anesthesia was induced. Patient was placed in the left lateral decubitus position with the right hip up on the PEG board. All pressure points were well padded. The right hip was then prepped and draped in usual sterile fashion. Preoperative antibiotics and tranexamic acid were given. Time-out was performed and the site of the previous incision was opened. The incision was extended distally by about 8 to 10 cm to allow for exposure of the distal aspect of the femur. At this point, dissection was undertaken and the tensor fascia was opened proximally and distally. The previous sutures were removed without any complication. At this point, all wounds were thoroughly irrigated using copious amount of fluid. The previous hip was visualized and was gently dislocated and was removed. The hip was loose and subsided. The right hip was then irrigated thoroughly using copious amount of fluid. At this point, dissection was undertaken distally and vastus lateralis was carefully dissected off of the femur posteriorly. This was retracted anteriorly and using a periosteal elevator, it was taken off of the femur on the lateral side. Wide Hohmann retractors were placed in anteriorly. The fracture could only be visualized medially. It could be palpated medially. It was a spiral fracture that extended from underneath the lesser trochanter all the way up just distal to the tip of the prosthesis. At this point, wounds were thoroughly irrigated using copious amount of fluid. The fracture was reduced near anatomically using gentle traction rotation. Once this was completed, 4 cerclage wires were passed around the long spiral fracture and there were tensioned up to 100 newtons and the cable was tightened. This provided excellent stability of the fracture. An intramedullary reamer was placed in to assure that the fracture does not collapse onto the intramedullary canal. A right size 18 mm reamer was used to perform this part of the procedure. Once this was completed, the fracture was nicely stabilized. There was excellent bone stock. At this point, a 240 mm length reamer was used. Sequential reaming was performed from 16 elevated up to 22 mm reamer, which provided external length and excellent chatter distally and external lock axially and rotationally. The anteversion was checked. At this point, once this was seated to the level of the greater trochanter on the jose of the reamer, the distal reamer was removed and the proximal reaming was performed with a size 4 reamer. Subsequently, the head and neck were constructed. Initially, a standard neck was used, but subsequently high-offset neck appeared to be the better size. At this point, trialing was performed using 0. The 0 was reduced. The leg lengths were checked and there appeared to be slightly lengthened on the right side compared to the left side. The range of motion was checked and rotation was checked and stability was checked and appeared to be good. At this point, the standard neck with 36 mm head was removed and a -3 mm neck length and 36 mm head were applied and construct was reduced. At this point, the length was checked and appeared to be equal. Internal and external rotation was checked and appeared to be excellent. Stability was checked and at 0, 30 degrees, 45 degrees, and 90 degrees of flexion, the hip could be internally rotated up to about 75 to 80 degrees. The anterior stability was checked and appeared to be very stable. There was no anterior dislocation. Multiple intraoperative x-rays were obtained during the course of this procedure to assure that the reamer length is good. The height was good and leg lengths were good. Final intraoperative x-ray with the reamer was obtained, which showed the leg lengths to be near-equal on the x-ray. There was excellent fill of the canal. At this point, the trial components were removed. The hip was thoroughly irrigated using Simpulse irrigation using 2 liters of Simpulse irrigation both in the hip and in the wounds and intramedullary canal was irrigated. Subsequently, a long 240 mm x 22 mm stem with high offset femoral component was placed and malleted in with about 15 degrees of anteversion. Once this was completed, the axial stability was checked and appeared to be perfect. Rotation and stability were checked and was excellent. The length was checked and appeared to be perfect. At this point, a trial was performed with 0 and -3 head and -3 head appeared to be the right size with a high offset neck on the femoral component. Therefore, the Lui taper was dried and the wounds were thoroughly irrigated using Simpulse irrigation and the -3 mm head length with 36 mm head was then placed and locked onto the Lui taper without any complication. The locking was checked and rechecked appeared to be perfect. At this point, the entire construct was reduced. Range of motion and stability were checked and leg lengths were checked and appeared to be excellent. The intraoperative x-rays were again obtained and appeared to be excellent fit. Reduction was great and there was excellent fill of the canal with actual femoral component. The femoral component had traversed the fracture by at least 10 cm. At this point, wounds were thoroughly irrigated proximally and distally using copious amount of fluid. A second g of Ancef was given to the patient and vancomycin powder was placed inside the wound and over the soft tissues and around the hip joint. At this point, the vastus lateralis was closed using #1 Vicryl suture. The tensor fascia was closed using #1 interrupted horizontal mattress suture. Subcutaneous tissue was closed using 2-0 Vicryl suture. Skin was closed using 3-0 Monocryl suture. All lap counts and instrument counts were correct. Patient tolerated the procedure well and was taken recovery room in stable condition. Jose Davila M.D. DR: NEREIDA JOB#: [id number] CC:
--- NOTE | 2020-04-09 19:31 | Orthopedic Progress Note ---
Orthopedic - Progress Note Subjective Additional Comments Patient seen and evaluated postoperatively. Feeling better. Neurological intact. Xrays with good position of the prosthesis. Fracture reduced well and s tabilized with 4 cables. Leg length appear near equal. Impression: Doing well post op following ORIF of Femur and Revision Right hip hemiarthroplasty. Continue PT. Partial WB right lower extremity. Rehab vs home in 2-3 days. Monitor hgb. Objective Last 24 Hour Vital Signs Date Time Temp Pulse Resp B/P (MAP) Pulse Ox O2 Delivery O2 Flow Rate FiO2 04/09/20 19:03 99.2 100 18 118/84 (95) 97 04/09/20 18:27 99.0 99 18 128/77 (94) 97 04/09/20 18:10 97.2 97 24 115/78 100 Nasal Cannula 3 04/09/20 17:55 96 23 114/75 100 Nasal Cannula 3 04/09/20 17:40 96 12 123/76 100 Simple Mask 6 04/09/20 17:25 97 20 113/75 100 Simple Mask 6 04/09/20 17:15 98 24 121/75 100 Simple Mask 6 04/09/20 17:05 98 23 113/74 100 Simple Mask 6 04/09/20 17:00 100 24 128/81 100 Simple Mask 6 04/09/20 16:56 101 18 100 04/09/20 16:55 98.3 103 10 122/77 100 Simple Mask 6 04/09/20 16:55 105 16 100 04/09/20 09:24 92 18 116/80 97 04/09/20 09:24 92 116/80 04/09/20 09:23 116/80 04/09/20 09:00 Room Air 04/09/20 08:00 98.9 92 18 116/80 (92) 97 04/09/20 04:00 98.5 95 18 114/76 (89) 96 04/09/20 00:00 98.7 104 20 115/76 (89) 97 04/08/20 21:00 Room Air 04/08/20 20:00 98.1 110 18 107/72 (84) 98 Intake and Output 04/08/20 04/09/20 19:00 07:00 Intake Total 600 ml 240 ml Balance 600 ml 240 ml Intake Oral 600 ml 240 ml # Voids 3 3 # Bowel Movements 2 Laboratory Tests Test 04/09/20 05:11 White Blood Count 9.6 K/UL (4.8-10.8) Red Blood Count 3.31 M/UL (4.20-5.40) L Hemoglobin 9.9 G/DL (12.0-16.0) L Hematocrit 27.7 % (37.0-47.0) L Mean Corpuscular Volume 84 FL (80-99) Mean Corpuscular Hemoglobin 30.1 PG (27.0-31.0) Mean Corpuscular Hemoglobin Concent 35.8 G/DL (32.0-36.0) Red Cell Distribution Width 14.7 % (11.6-14.8) Platelet Count 141 K/UL (150-450) L Mean Platelet Volume 9.0 FL (6.5-10.1) Neutrophils (%) (Auto) 72.0 % (45.0-75.0) Lymphocytes (%) (Auto) 11.6 % (20.0-45.0) L Monocytes (%) (Auto) 14.9 % (1.0-10.0) H Eosinophils (%) (Auto) 0.1 % (0.0-3.0) Basophils (%) (Auto) 1.4 % (0.0-2.0) Sodium Level 140 MMOL/L (136-145) Potassium Level 3.4 MMOL/L (3.5-5.1) L Chloride Level 108 MMOL/L (98-107) H Carbon Dioxide Level 27 MMOL/L (21-32) Anion Gap 5 mmol/L (5-15) Blood Urea Nitrogen 8 mg/dL (7-18) Creatinine 0.6 MG/DL (0.55-1.30) Estimat Glomerular Filtration Rate > 60 mL/min (>60) Glucose Level 107 MG/DL (74-106) H Calcium Level 8.0 MG/DL (8.5-10.1) L Assessment Procedure Performed right femur orif and revision arthroplasty Vishnu Davila MD Apr 09, 2020 19:31
--- NOTE | 2020-04-09 19:40 | NUR ---
NURSE NOTES: Given Tylenol #3 1 po by pt's request d/t surgical pain. Pt is awake and alert. No respiratory distress. Surgical site dressing kept dry and intact. On abduction pillow. Call light within reach. Will continue to monitor.
--- NOTE | 2020-04-09 21:30 | NUR ---
NURSE NOTES: Pt refuses to keep on abduction pillow d/t bonding related discomfort. Explain for benefits and risks but pt took it out. Straight on right leg with pillow and will continue to monitor closely.
[2020-04-09] MEDS: Zolpidem 5mg tab ORAL PRN (21:36)
[2020-04-09] MEDS: TraZODone 50mg tab ORAL SCH (21:36)
--- NOTE | 2020-04-09 22:30 | NUR ---
NURSE NOTES: Pain control did not decrease after Tylenol #3. Receive new order from On-call MD of Dr. Davila for severe pain. Order noted and carried out. Will continue to monitor.
[2020-04-09] MEDS: HYDROmorphone 1mg/ml Carpuject IVP PRN (22:43)
[2020-04-09] MEDS ORDERED: HYDROmorphone 1mg/ml Carpuject IVP PRN (22:45)
[2020-04-10] VITALS: BP 118/83
[2020-04-10] MEDS: HYDROcodone/Acetamin 7.5/325 tab ORAL PRN ×4 (00:26→16:28)
[2020-04-10] MEDS: HYDROmorphone 1mg/ml Carpuject IVP PRN ×3 (03:13→12:02)
[2020-04-10 04:00] VITALS: BP 112/75
[2020-04-10] MEDS: ceFAZolin 2gm/D5W 50ml Premix IV SCH (05:52)
[2020-04-10 05:54] LABS: BASOPHILS % (AUTO) 0.7 % (0.0-2.0); HEMATOCRIT 31.5 % (37.0-47.0); HEMOGLOBIN 11.1 G/DL (12.0-16.0); LYMPHOCYTES % (AUTO) 12.7 % (20.0-45.0); MEAN CORPUSCULAR VOLUME 86 FL (80-99); MONOCYTES % (AUTO) 12.8 % (1.0-10.0); NEUTROPHILS % (AUTO) 73.7 % (45.0-75.0); PLATELET COUNT 204 K/UL (150-450); RED BLOOD COUNT 3.68 M/UL (4.20-5.40); RED CELL DISTRIBUTION WIDTH 15.3 % (11.6-14.8)
[2020-04-10 05:56] LABS: ANION GAP 6 mmol/L (5-15); BLOOD UREA NITROGEN 8 mg/dL (7-18); CALCIUM 8.3 MG/DL (8.5-10.1); CARBON DIOXIDE 27 MMOL/L (21-32); CHLORIDE 104 MMOL/L (98-107); POTASSIUM 3.9 MMOL/L (3.5-5.1); SODIUM 137 MMOL/L (136-145)
[2020-04-10] MEDS: D5 1/2NS w/KCl 20mEq 1,000 ML IV SCH (07:14)
--- NOTE | 2020-04-10 07:45 | NUR ---
NURSE HAND-OFF: Important Events on Shift: Post-op: pain control-Dilaudid x3, [place] 7.5/325 X2. On abduction pillow, self-voiding x2 at bed Patient Status: [stable] Diet: [regular] Pending Orders: [] Pending Results/Labs:[] Pending MD notification:[] Latest Vital Signs: Temperature 98.0 , Pulse 92 , B/P 112 /75 , Respiratory Rate 18 , O2 SAT 95 , Nasal Cannula, O2 Flow Rate 3 . Vital Sign Comment: [] Latest Lui Fall Score: 70 Fall Risk: High Risk Safety Measures: Call light Within Reach, Bed Alarm , Side Rails Side Rails x2, Bed position Low and Locked. Fall Precautions: Yellow Socks Report given to WEI Santos. Round is done.
--- NOTE | 2020-04-10 07:47 | NUR ---
NURSE NOTES: Report received from o RN, rounds made. Patient resting in semi-fowlers position in bed. AOx4, calm (mildly anxious, has multiple requests and questions). Respirations even/unlabored on RA. Right hip foam tape dressing, CDI, Abductor pillow in place. Neuro checks done, skin warm, wiggles, pulses palpable, no NT, no swelling noted to RLE. Pain 9.5/10 to right hip. IVF D5 1/2 NS +20 KCL at 75 ml/hr to LFA, site asymptomatic. Call light in reach, bed in lowest position, will continue to monitor.
[2020-04-10 08:00] VITALS: BP 109/77
[2020-04-10] MEDS: Losartan 50mg tab ORAL SCH (09:00)
[2020-04-10] MEDS: LORazepam 1mg tab ORAL SCH ×2 (09:43→18:51)
[2020-04-10] MEDS: Calcium Carbonate 500mg w/Vit D 200iu tab ORAL SCH (09:44)
[2020-04-10] MEDS: Docusate 100mg cap ORAL SCH ×3 (09:44→18:50)
[2020-04-10] MEDS: celeBREX 200mg Cap **SURGERY PATIENTS ONLY ORAL SCH (09:44)
[2020-04-10] MEDS: Multivitamin w/Minerals tab ORAL SCH (09:44)
--- NOTE | 2020-04-10 10:47 | Orthopedic Progress Note ---
Orthopedic - Progress Note Subjective Symptoms: c/o post-op hip pain - pain meds adjusted overnight Objective Laboratory Tests Test 04/10/20 05:10 White Blood Count 11.0 K/UL (4.8-10.8) H Red Blood Count 3.68 M/UL (4.20-5.40) L Hemoglobin 11.1 G/DL (12.0-16.0) L Hematocrit 31.5 % (37.0-47.0) L Mean Corpuscular Volume 86 FL (80-99) Mean Corpuscular Hemoglobin 30.1 PG (27.0-31.0) Mean Corpuscular Hemoglobin Concent 35.1 G/DL (32.0-36.0) Red Cell Distribution Width 15.3 % (11.6-14.8) H Platelet Count 204 K/UL (150-450) Mean Platelet Volume 8.9 FL (6.5-10.1) Neutrophils (%) (Auto) 73.7 % (45.0-75.0) Lymphocytes (%) (Auto) 12.7 % (20.0-45.0) L Monocytes (%) (Auto) 12.8 % (1.0-10.0) H Eosinophils (%) (Auto) 0.0 % (0.0-3.0) Basophils (%) (Auto) 0.7 % (0.0-2.0) Sodium Level 137 MMOL/L (136-145) Potassium Level 3.9 MMOL/L (3.5-5.1) Chloride Level 104 MMOL/L (98-107) Carbon Dioxide Level 27 MMOL/L (21-32) Anion Gap 6 mmol/L (5-15) Blood Urea Nitrogen 8 mg/dL (7-18) Creatinine 1.0 MG/DL (0.55-1.30) # Estimat Glomerular Filtration Rate > 60 mL/min (>60) Glucose Level 159 MG/DL (74-106) H Calcium Level 8.3 MG/DL (8.5-10.1) L Last 24 Hour Vital Signs Date Time Temp Pulse Resp B/P (MAP) Pulse Ox O2 Delivery O2 Flow Rate FiO2 04/10/20 10:13 102 18 109/77 97 04/10/20 09:43 102 18 109/77 97 04/10/20 09:00 109/77 04/10/20 09:00 102 109/77 04/10/20 08:00 98.0 102 18 109/77 (88) 97 04/10/20 04:00 98.0 92 18 112/75 (87) 95 04/10/20 00:00 99.9 94 18 118/83 (95) 97 04/09/20 21:00 98.1 102 18 134/91 (105) 97 04/09/20 21:00 Room Air 04/09/20 19:30 99.1 102 18 124/78 (93) 96 04/09/20 19:03 99.2 100 18 118/84 (95) 97 04/09/20 18:27 99.0 99 18 128/77 (94) 97 04/09/20 18:10 97.2 97 24 115/78 100 Nasal Cannula 3 04/09/20 17:55 96 23 114/75 100 Nasal Cannula 3 04/09/20 17:40 96 12 123/76 100 Simple Mask 6 04/09/20 17:25 97 20 113/75 100 Simple Mask 6 04/09/20 17:15 98 24 121/75 100 Simple Mask 6 04/09/20 17:05 98 23 113/74 100 Simple Mask 6 04/09/20 17:00 100 24 128/81 100 Simple Mask 6 04/09/20 16:56 101 18 100 04/09/20 16:55 98.3 103 10 122/77 100 Simple Mask 6 04/09/20 16:55 105 16 100 Intake and Output 04/09/20 04/10/20 19:00 07:00 Intake Total 1300 ml 150 ml Output Total 675 ml Balance 625 ml 150 ml Intake Oral 150 ml IV Total 1300 ml Output Urine Total 575 ml Estimated Blood Loss 100 ml # Voids 2 Laboratory Tests Test 04/10/20 05:10 White Blood Count 11.0 K/UL (4.8-10.8) H Red Blood Count 3.68 M/UL (4.20-5.40) L Hemoglobin 11.1 G/DL (12.0-16.0) L Hematocrit 31.5 % (37.0-47.0) L Mean Corpuscular Volume 86 FL (80-99) Mean Corpuscular Hemoglobin 30.1 PG (27.0-31.0) Mean Corpuscular Hemoglobin Concent 35.1 G/DL (32.0-36.0) Red Cell Distribution Width 15.3 % (11.6-14.8) H Platelet Count 204 K/UL (150-450) Mean Platelet Volume 8.9 FL (6.5-10.1) Neutrophils (%) (Auto) 73.7 % (45.0-75.0) Lymphocytes (%) (Auto) 12.7 % (20.0-45.0) L Monocytes (%) (Auto) 12.8 % (1.0-10.0) H Eosinophils (%) (Auto) 0.0 % (0.0-3.0) Basophils (%) (Auto) 0.7 % (0.0-2.0) Sodium Level 137 MMOL/L (136-145) Potassium Level 3.9 MMOL/L (3.5-5.1) Chloride Level 104 MMOL/L (98-107) Carbon Dioxide Level 27 MMOL/L (21-32) Anion Gap 6 mmol/L (5-15) Blood Urea Nitrogen 8 mg/dL (7-18) Creatinine 1.0 MG/DL (0.55-1.30) # Estimat Glomerular Filtration Rate > 60 mL/min (>60) Glucose Level 159 MG/DL (74-106) H Calcium Level 8.3 MG/DL (8.5-10.1) L Wound: clean, dry, intact Drains: none Neuro Status: normal Vascular Status: normal Additional Comments xray reviewed. excelleny reduction of fx with cables. revision stem in good position Assessment Post-op Diagnosis POD 1 Procedure Performed right femur ORIF and revision hip arthroplasty Plan Plan: PT - TTWB right LE, pain management, discharge plan - likely to rehab sunday, other - HGB improved. will continue to monitor Tricia Dueñas Apr 10, 2020 10:47
[2020-04-10 11:38] VITALS: BP 91/60
--- NOTE | 2020-04-10 14:02 | NUR ---
NURSE NOTES: Patient up with nursing staff x2 assist to BSC. Patient able to transfer using proper body mechanics, moves slow. Instructed on toe touch to RLE only, walker used with transfer. PT up ambulated to door then sat in chair x2 hours then ambulated in halls. Activity tolerance fair. Instructed/demonstrated IS, patient returns demonstration correctly.
[2020-04-10] MEDS ORDERED: Tubing IV Secondary IV ONE (14:27)
[2020-04-10 16:00] VITALS: BP 103/73
--- NOTE | 2020-04-10 16:33 | Internal Med Progress Note ---
Subjective Date of Service: Apr 10, 2020 Physician Name MinHans Attending Physician Vishnu Davila MD Current Medications Medications (Trade) Dose Ordered Sig/Samara Route PRN Reason Start Time Stop Time Status Last Admin Dose Admin Acetaminophen (Tylenol) 650 mg Q4H PRN ORAL Mild Pain (Pain Scale 1-3) 04/09/20 16:30 05/09/20 16:29 Acetaminophen/ Codeine Phosphate (Tylenol #3) 1 tab Q6H PRN ORAL Moderate Pain (Pain Scale 4-6) 04/09/20 12:45 04/16/20 12:44 04/09/20 19:37 Acetaminophen/ Hydrocodone Bitart ([place] 7.5/325) 1 tab Q4H PRN ORAL Moderate Pain (Pain Scale 4-6) 04/09/20 16:30 04/16/20 16:29 04/10/20 16:28 Amlodipine Besylate (Norvasc) 10 mg DAILY ORAL 04/07/20 09:00 05/07/20 08:59 04/09/20 09:24 Aspirin (ASA) 325 mg BID ORAL 04/09/20 18:00 05/24/20 17:59 04/10/20 09:42 Calcium/Vitamin D (OsCal D) 1 tab DAILY ORAL 04/07/20 09:00 07/06/20 08:59 04/10/20 09:44 Celecoxib (CeleBREX) 200 mg DAILY ORAL 04/10/20 09:00 07/09/20 08:59 04/10/20 09:44 Dextrose/ Electrolytes 1,000 ml @ 75 mls/hr [id number] IV 04/09/20 17:00 05/09/20 16:59 04/10/20 07:14 Diphenhydramine HCl (Benadryl) 25 mg Q6H PRN ORAL Itching 04/06/20 17:00 05/06/20 16:59 04/07/20 03:39 Docusate Sodium (Colace) 100 mg THREE TIMES A DAY ORAL 04/09/20 18:00 05/09/20 17:59 04/10/20 12:08 Ferrous Sulfate (Feosol) 325 mg THREE TIMES A DAY ORAL 04/09/20 18:00 07/08/20 17:59 04/10/20 12:08 Hydromorphone HCl (Dilaudid) 1 mg Q4H PRN IVP Severe Pain (Pain Scale 7-10) 04/09/20 22:45 04/16/20 16:29 04/10/20 12:02 Lorazepam (Ativan) 2 mg BID ORAL 04/06/20 18:00 04/13/20 17:59 04/10/20 09:43 Losartan Potassium (Cozaar) 50 mg DAILY ORAL 04/07/20 09:00 05/07/20 08:59 04/09/20 09:23 Magnesium Hydroxide (Mom) 30 ml DAILYPRN PRN ORAL Constipation 04/09/20 16:30 05/09/20 16:29 Multivitamins Therapeutic (Therapeutic Multivitamin) 1 ea DAILY ORAL 04/07/20 09:00 05/07/20 08:59 04/10/20 09:44 Prochlorperazine (Compazine) 10 mg Q6H PRN IVP Nausea & Vomiting 04/09/20 16:30 05/09/20 16:29 Trazodone HCl (Desyrel) 50 mg BEDTIME ORAL 04/06/20 21:00 05/06/20 20:59 04/09/20 21:36 Zolpidem Tartrate (Ambien) 5 mg BEDTIME PRN ORAL Insomnia 04/06/20 17:00 04/13/20 16:59 04/09/20 21:36 Allergies: Coded Allergies: No Known Allergies (Unverified , 12/05/19) ROS Limited/Unobtainable: No Constitutional: Reports: no symptoms HEENT: Reports: no symptoms Cardiovascular: Reports: no symptoms Respiratory: Reports: no symptoms Gastrointestinal/Abdominal: Reports: no symptoms Genitourinary: Reports: no symptoms Neurologic/Psychiatric: Reports: no symptoms Subjective 64 YO F admitted with osteoarthritis right hip. S/P right hip total arthroplasty 04/06/20. S/P revision of right hip tot arthroplasty and ORIF on 04/09/20. Cover for Rhys Goodrich-Dr Sanchez Objective Last Vital Signs Date Time Temp Pulse Resp B/P (MAP) Pulse Ox O2 Delivery O2 Flow Rate FiO2 04/10/20 16:00 97.5 95 18 103/73 (83) 90 04/10/20 09:00 Room Air 04/09/20 18:10 3 Laboratory Tests Test 04/10/20 05:10 White Blood Count 11.0 K/UL (4.8-10.8) H Red Blood Count 3.68 M/UL (4.20-5.40) L Hemoglobin 11.1 G/DL (12.0-16.0) L Hematocrit 31.5 % (37.0-47.0) L Mean Corpuscular Volume 86 FL (80-99) Mean Corpuscular Hemoglobin 30.1 PG (27.0-31.0) Mean Corpuscular Hemoglobin Concent 35.1 G/DL (32.0-36.0) Red Cell Distribution Width 15.3 % (11.6-14.8) H Platelet Count 204 K/UL (150-450) Mean Platelet Volume 8.9 FL (6.5-10.1) Neutrophils (%) (Auto) 73.7 % (45.0-75.0) Lymphocytes (%) (Auto) 12.7 % (20.0-45.0) L Monocytes (%) (Auto) 12.8 % (1.0-10.0) H Eosinophils (%) (Auto) 0.0 % (0.0-3.0) Basophils (%) (Auto) 0.7 % (0.0-2.0) Sodium Level 137 MMOL/L (136-145) Potassium Level 3.9 MMOL/L (3.5-5.1) Chloride Level 104 MMOL/L (98-107) Carbon Dioxide Level 27 MMOL/L (21-32) Anion Gap 6 mmol/L (5-15) Blood Urea Nitrogen 8 mg/dL (7-18) Creatinine 1.0 MG/DL (0.55-1.30) # Estimat Glomerular Filtration Rate > 60 mL/min (>60) Glucose Level 159 MG/DL (74-106) H Calcium Level 8.3 MG/DL (8.5-10.1) L Intake and Output 04/09/20 04/10/20 19:00 07:00 Intake Total 1300 ml 150 ml Output Total 675 ml Balance 625 ml 150 ml Intake Oral 150 ml IV Total 1300 ml Output Urine Total 575 ml Estimated Blood Loss 100 ml # Voids 2 Objective General Appearance: WD/WN, no apparent distress, alert, mild distress EENT: PERRL/EOMI, normal ENT inspection Neck: non-tender, normal alignment, supple, normal inspection Cardiovascular: normal peripheral pulses, normal rate, regular rhythm, no gallop/murmur, no JVD Respiratory/Chest: chest wall non-tender, lungs clear, normal breath sounds, no respiratory distress, no accessory muscle use Abdomen: normal bowel sounds, non tender, soft, no organomegaly, no mass Extremities: normal range of motion, non-tender 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 S/P revision r ight hip tot arthroplasty and ORIF on 04/09/20. Orhto=Dr Davila. (2) Right hip pain (3) HTN (hypertension) Assessment & Plan: Continue amlodipine and cozaar (4) GERD (gastroesophageal reflux disease) Assessment & Plan: continue protonix (5) Barretts esophagus (6) Anxiety Assessment & Plan: continue ativan (7) Depression, major Assessment & Plan: continue deborahzodonHans Reece MD Apr 10, 2020 16:33
--- NOTE | 2020-04-10 16:44 | NUR ---
PT Note PT jeffrey completed, treatment initiated. Patient has right hip/thigh pain, muscle weakness, limiting her mobility and gait. Patient needs PT to increase her muscle strength, ROM and decrease pain to improve her functional mobility and gait. Addendum: 04/10/20 at 1645 by ALICIA RAHMAN PT Amended: Links added.
--- NOTE | 2020-04-10 19:30 | NUR ---
NURSE NOTES: Received report from WEI Young. Pt is calm and laying down in bed. VSS. Right foot is raised on a pillow because pt does not want the abductor pillow. Bed locked and in lowest position, side rails up x2. will continue to monitor.
--- NOTE | 2020-04-10 19:42 | NUR ---
NURSE HAND-OFF: Important Events on Shift:PT evaluation (toe touch only to RLE), ambulated in halls/room, up to chair x3 hours, held BP meds this AM (systolic 109) Patient Status: stable Diet: Regular Pending Orders: labs in AM Pending Results/Labs:BMP 04/11 Pending MD notification:none Latest Vital Signs: Temperature 97.5 , Pulse 95 , B/P 103 /73 , Respiratory Rate 18 , O2 SAT 90 , Nasal Cannula, O2 Flow Rate 3 . Vital Sign Comment: none Latest Lui Fall Score: 70 Fall Risk: High Risk Safety Measures: Call light Within Reach, Bed Alarm , Side Rails Side Rails x2, Bed position Low and Locked. Fall Precautions: Yellow Socks Report given to Sonam RN/Mono CARVAJAL.
[2020-04-10 20:00] VITALS: BP 96/62
--- NOTE | 2020-04-10 20:52 | NUR ---
NURSE NOTES: Pt tolerating lots of oral fluids. D/C'd IVF & converted to S/L as ordered by MD.
[2020-04-10] MEDS: TraZODone 50mg tab ORAL SCH (21:48)
[2020-04-10] MEDS: Zolpidem 5mg tab ORAL PRN (21:53)
[2020-04-11] VITALS (7 sets, daily range): BP systolic 93–108; BP diastolic 63–78
[2020-04-11] MEDS: HYDROmorphone 1mg/ml Carpuject IVP PRN ×4 (05:43→20:35)
[2020-04-11 05:45] LABS: EOSINOPHILS % (AUTO) 0.4 % (0.0-3.0); HEMATOCRIT 26.1 % (37.0-47.0); HEMOGLOBIN 8.9 G/DL (12.0-16.0); LYMPHOCYTES % (AUTO) 14.8 % (20.0-45.0); MEAN CORPUSCULAR VOLUME 88 FL (80-99); MONOCYTES % (AUTO) 12.3 % (1.0-10.0); NEUTROPHILS % (AUTO) 71.5 % (45.0-75.0); PLATELET COUNT 183 K/UL (150-450); RED BLOOD COUNT 2.97 M/UL (4.20-5.40); RED CELL DISTRIBUTION WIDTH 15.3 % (11.6-14.8); WHITE BLOOD COUNT 9.3 K/UL (4.8-10.8)
[2020-04-11 05:57] LABS: ANION GAP 3 mmol/L (5-15); BLOOD UREA NITROGEN 9 mg/dL (7-18); CALCIUM 7.9 MG/DL (8.5-10.1); CARBON DIOXIDE 29 MMOL/L (21-32); CHLORIDE 105 MMOL/L (98-107); CREATININE 0.7 MG/DL (0.55-1.30); POTASSIUM 3.5 MMOL/L (3.5-5.1); SODIUM 137 MMOL/L (136-145)
--- NOTE | 2020-04-11 06:00 | NUR ---
NURSE NOTES: Changed dressing on right upper leg. Pt tolerated well. No complains of pain.
[2020-04-11] MEDS: HYDROcodone/Acetamin 7.5/325 tab ORAL PRN ×2 (07:05→14:09)
--- NOTE | 2020-04-11 07:19 | NUR ---
NURSE NOTES: Report received from Sonam RN/Mono RN, rounds made. Patient resting in semi-fowlers position in bed. AOx4, calm. Respirations even/unlabored on RA. Right hip 4x4 gauze with tegederm dressing, CDI. Neuro checks done, skin warm, wiggles, pulses palpable, no NT, mild swelling (non-pitting) noted to RLE. Pain 9/10 to right hip. LFA, saline lock, site asymptomatic. Call light in reach, bed in lowest position, will continue to monitor.
--- NOTE | 2020-04-11 07:38 | NUR ---
NURSE HAND-OFF: Important Events on Shift:pain management, d/c'd ivf per MD order, changed surgical wound dressing pod#2 Patient Status: stable Diet: regular Pending Orders: Pending Results/Labs: Pending MD notification: Latest Vital Signs: Temperature 98.0 , Pulse 99 , B/P 107 /78 , Respiratory Rate 18 , O2 SAT 97 , Nasal Cannula, O2 Flow Rate 3 . Vital Sign Comment: Latest Lui Fall Score: 70 Fall Risk: High Risk Safety Measures: Call light Within Reach, Bed Alarm , Side Rails Side Rails x2, Bed position Low and Locked. Fall Precautions: Yellow Socks Report given to WEI Santos.
--- NOTE | 2020-04-11 08:57 | Orthopedic Progress Note ---
Orthopedic - Progress Note Subjective Symptoms: improved - pain better controlled. working with PT, TTWB. severianong changed Objective Laboratory Tests Test 04/11/20 05:10 White Blood Count 9.3 K/UL (4.8-10.8) Red Blood Count 2.97 M/UL (4.20-5.40) L Hemoglobin 8.9 G/DL (12.0-16.0) L Hematocrit 26.1 % (37.0-47.0) L Mean Corpuscular Volume 88 FL (80-99) Mean Corpuscular Hemoglobin 30.1 PG (27.0-31.0) Mean Corpuscular Hemoglobin Concent 34.2 G/DL (32.0-36.0) Red Cell Distribution Width 15.3 % (11.6-14.8) H Platelet Count 183 K/UL (150-450) Mean Platelet Volume 8.3 FL (6.5-10.1) Neutrophils (%) (Auto) 71.5 % (45.0-75.0) Lymphocytes (%) (Auto) 14.8 % (20.0-45.0) L Monocytes (%) (Auto) 12.3 % (1.0-10.0) H Eosinophils (%) (Auto) 0.4 % (0.0-3.0) Basophils (%) (Auto) 1.0 % (0.0-2.0) Sodium Level 137 MMOL/L (136-145) Potassium Level 3.5 MMOL/L (3.5-5.1) Chloride Level 105 MMOL/L (98-107) Carbon Dioxide Level 29 MMOL/L (21-32) Anion Gap 3 mmol/L (5-15) L Blood Urea Nitrogen 9 mg/dL (7-18) Creatinine 0.7 MG/DL (0.55-1.30) Estimat Glomerular Filtration Rate > 60 mL/min (>60) Glucose Level 107 MG/DL (74-106) H Calcium Level 7.9 MG/DL (8.5-10.1) L Last 24 Hour Vital Signs Date Time Temp Pulse Resp B/P (MAP) Pulse Ox O2 Delivery O2 Flow Rate FiO2 04/11/20 04:00 98.0 99 18 107/78 (88) 97 04/10/20 21:00 Room Air 04/10/20 20:00 98.1 98 18 96/62 (73) 97 04/10/20 19:21 95 18 103/73 90 04/10/20 18:51 95 18 103/73 90 04/10/20 16:00 97.5 95 18 103/73 (83) 90 04/10/20 11:38 98.1 101 18 91/60 (70) 97 04/10/20 10:13 102 18 109/77 97 04/10/20 09:43 102 18 109/77 97 04/10/20 09:00 Room Air 04/10/20 09:00 109/77 04/10/20 09:00 102 109/77 Intake and Output 04/10/20 04/11/20 19:00 07:00 Intake Total 2025 ml 300 ml Balance 2025 ml 300 ml Intake Oral 1200 ml 300 ml IV Total 825 ml # Voids 3 2 Laboratory Tests Test 04/11/20 05:10 White Blood Count 9.3 K/UL (4.8-10.8) Red Blood Count 2.97 M/UL (4.20-5.40) L Hemoglobin 8.9 G/DL (12.0-16.0) L Hematocrit 26.1 % (37.0-47.0) L Mean Corpuscular Volume 88 FL (80-99) Mean Corpuscular Hemoglobin 30.1 PG (27.0-31.0) Mean Corpuscular Hemoglobin Concent 34.2 G/DL (32.0-36.0) Red Cell Distribution Width 15.3 % (11.6-14.8) H Platelet Count 183 K/UL (150-450) Mean Platelet Volume 8.3 FL (6.5-10.1) Neutrophils (%) (Auto) 71.5 % (45.0-75.0) Lymphocytes (%) (Auto) 14.8 % (20.0-45.0) L Monocytes (%) (Auto) 12.3 % (1.0-10.0) H Eosinophils (%) (Auto) 0.4 % (0.0-3.0) Basophils (%) (Auto) 1.0 % (0.0-2.0) Sodium Level 137 MMOL/L (136-145) Potassium Level 3.5 MMOL/L (3.5-5.1) Chloride Level 105 MMOL/L (98-107) Carbon Dioxide Level 29 MMOL/L (21-32) Anion Gap 3 mmol/L (5-15) L Blood Urea Nitrogen 9 mg/dL (7-18) Creatinine 0.7 MG/DL (0.55-1.30) Estimat Glomerular Filtration Rate > 60 mL/min (>60) Glucose Level 107 MG/DL (74-106) H Calcium Level 7.9 MG/DL (8.5-10.1) L Assessment Post-op Diagnosis POD 2 Procedure Performed right femur ORIF and revision hip arthroplasty Plan Plan: PT, discharge plan - to rehab tomorrow. , other - will continue to follow H&H Tricia Dueñas Apr 11, 2020 08:57
[2020-04-11] MEDS: Losartan 50mg tab ORAL SCH (09:00)
[2020-04-11] MEDS: LORazepam 1mg tab ORAL SCH ×2 (09:49→18:32)
[2020-04-11] MEDS: Docusate 100mg cap ORAL SCH ×3 (09:50→18:30)
[2020-04-11] MEDS: celeBREX 200mg Cap **SURGERY PATIENTS ONLY ORAL SCH (09:50)
[2020-04-11] MEDS: Calcium Carbonate 500mg w/Vit D 200iu tab ORAL SCH (09:51)
[2020-04-11] MEDS: Multivitamin w/Minerals tab ORAL SCH (09:51)
[2020-04-11] MEDS: Milk of Magnesia 30ml Ud ORAL PRN (12:17)
--- NOTE | 2020-04-11 12:53 | Internal Med Progress Note ---
Subjective Date of Service: Apr 11, 2020 Physician Name MinHans Attending Physician Vishnu Davila MD Current Medications Medications (Trade) Dose Ordered Sig/Samara Route PRN Reason Start Time Stop Time Status Last Admin Dose Admin Acetaminophen (Tylenol) 650 mg Q4H PRN ORAL Mild Pain (Pain Scale 1-3) 04/09/20 16:30 05/09/20 16:29 Acetaminophen/ Codeine Phosphate (Tylenol #3) 1 tab Q6H PRN ORAL Moderate Pain (Pain Scale 4-6) 04/09/20 12:45 04/16/20 12:44 04/09/20 19:37 Acetaminophen/ Hydrocodone Bitart ([place] 7.5/325) 1 tab Q4H PRN ORAL Moderate Pain (Pain Scale 4-6) 04/09/20 16:30 04/16/20 16:29 04/11/20 07:05 Amlodipine Besylate (Norvasc) 10 mg DAILY ORAL 04/07/20 09:00 05/07/20 08:59 04/09/20 09:24 Aspirin (ASA) 325 mg BID ORAL 04/09/20 18:00 05/24/20 17:59 04/11/20 09:48 Calcium/Vitamin D (OsCal D) 1 tab DAILY ORAL 04/07/20 09:00 07/06/20 08:59 04/11/20 09:51 Celecoxib (CeleBREX) 200 mg DAILY ORAL 04/10/20 09:00 07/09/20 08:59 04/11/20 09:50 Diphenhydramine HCl (Benadryl) 25 mg Q6H PRN ORAL Itching 04/06/20 17:00 05/06/20 16:59 04/07/20 03:39 Docusate Sodium (Colace) 100 mg THREE TIMES A DAY ORAL 04/09/20 18:00 05/09/20 17:59 04/11/20 12:18 Ferrous Sulfate (Feosol) 325 mg THREE TIMES A DAY ORAL 04/09/20 18:00 07/08/20 17:59 04/11/20 12:18 Hydromorphone HCl (Dilaudid) 1 mg Q4H PRN IVP Severe Pain (Pain Scale 7-10) 04/09/20 22:45 04/16/20 16:29 04/11/20 09:58 Lorazepam (Ativan) 2 mg BID ORAL 04/06/20 18:00 04/13/20 17:59 04/11/20 09:49 Losartan Potassium (Cozaar) 50 mg DAILY ORAL 04/07/20 09:00 05/07/20 08:59 04/09/20 09:23 Magnesium Hydroxide (Mom) 30 ml DAILYPRN PRN ORAL Constipation 04/09/20 16:30 05/09/20 16:29 04/11/20 12:17 Multivitamins Therapeutic (Therapeutic Multivitamin) 1 ea DAILY ORAL 04/07/20 09:00 05/07/20 08:59 04/11/20 09:51 Prochlorperazine (Compazine) 10 mg Q6H PRN IVP Nausea & Vomiting 04/09/20 16:30 05/09/20 16:29 Trazodone HCl (Desyrel) 50 mg BEDTIME ORAL 04/06/20 21:00 05/06/20 20:59 04/10/20 21:48 Zolpidem Tartrate (Ambien) 5 mg BEDTIME PRN ORAL Insomnia 04/06/20 17:00 04/13/20 16:59 04/10/20 21:53 Allergies: Coded Allergies: No Known Allergies (Unverified , 12/05/19) ROS Limited/Unobtainable: No Constitutional: Reports: no symptoms HEENT: Reports: no symptoms Cardiovascular: Reports: no symptoms Respiratory: Reports: no symptoms Gastrointestinal/Abdominal: Reports: no symptoms Genitourinary: Reports: no symptoms Neurologic/Psychiatric: Reports: no symptoms Subjective 64 YO F admitted with osteoarthritis right hip. S/P right hip total arthroplasty 04/06/20. S/P revision of right hip tot arthroplasty and ORIF on 04/09/20. Cover for Rhys Sanchez Objective Last Vital Signs Date Time Temp Pulse Resp B/P (MAP) Pulse Ox O2 Delivery O2 Flow Rate FiO2 04/11/20 11:59 97.9 94 16 93/65 (74) 97 04/11/20 09:00 Room Air 04/09/20 18:10 3 Laboratory Tests Test 04/11/20 05:10 White Blood Count 9.3 K/UL (4.8-10.8) Red Blood Count 2.97 M/UL (4.20-5.40) L Hemoglobin 8.9 G/DL (12.0-16.0) L Hematocrit 26.1 % (37.0-47.0) L Mean Corpuscular Volume 88 FL (80-99) Mean Corpuscular Hemoglobin 30.1 PG (27.0-31.0) Mean Corpuscular Hemoglobin Concent 34.2 G/DL (32.0-36.0) Red Cell Distribution Width 15.3 % (11.6-14.8) H Platelet Count 183 K/UL (150-450) Mean Platelet Volume 8.3 FL (6.5-10.1) Neutrophils (%) (Auto) 71.5 % (45.0-75.0) Lymphocytes (%) (Auto) 14.8 % (20.0-45.0) L Monocytes (%) (Auto) 12.3 % (1.0-10.0) H Eosinophils (%) (Auto) 0.4 % (0.0-3.0) Basophils (%) (Auto) 1.0 % (0.0-2.0) Sodium Level 137 MMOL/L (136-145) Potassium Level 3.5 MMOL/L (3.5-5.1) Chloride Level 105 MMOL/L (98-107) Carbon Dioxide Level 29 MMOL/L (21-32) Anion Gap 3 mmol/L (5-15) L Blood Urea Nitrogen 9 mg/dL (7-18) Creatinine 0.7 MG/DL (0.55-1.30) Estimat Glomerular Filtration Rate > 60 mL/min (>60) Glucose Level 107 MG/DL (74-106) H Calcium Level 7.9 MG/DL (8.5-10.1) L Intake and Output 04/10/20 04/11/20 19:00 07:00 Intake Total 2025 ml 300 ml Balance 2025 ml 300 ml Intake Oral 1200 ml 300 ml IV Total 825 ml # Voids 3 2 Objective General Appearance: WD/WN, no apparent distress, alert, mild distress EENT: PERRL/EOMI, normal ENT inspection Neck: non-tender, normal alignment, supple, normal inspection Cardiovascular: normal peripheral pulses, normal rate, regular rhythm, no gallop/murmur, no JVD Respiratory/Chest: chest wall non-tender, lungs clear, normal breath sounds, no respiratory distress, no accessory muscle use Abdomen: normal bowel sounds, non tender, soft, no organomegaly, no mass Extremities: normal range of motion, non-tender 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 S/P revision right hip tot arthroplasty and ORIF on 04/09/20. Orhto=Dr Davila. (2) Right hip pain (3) HTN (hypertension) Assessment & Plan: Continue amlodipine and cozaar (4) GERD (gastroesophageal reflux disease) Assessment & Plan: continue protonix (5) Barretts esophagus (6) Anxiety Assessment & Plan: continue ativan (7) Depression, major Assessment & Plan: continue trazodone Assessment/Plan Discharge planning: [facility] Hans Min MD Apr 11, 2020 12:53
--- NOTE | 2020-04-11 19:32 | NUR ---
NURSE HAND-OFF: Important Events on Shift:Up ambulated in halls with PT, sat up in chair, administered MOM (had BM), BP meds held in AM Patient Status: stable Diet: regular Pending Orders: discharge plans for [facility] (rehab) 04/12 Pending Results/Labs:none Pending MD notification:none Latest Vital Signs: Temperature 98.2 , Pulse 99 , B/P 96 /66 , Respiratory Rate 16 , O2 SAT 97 , Nasal Cannula, O2 Flow Rate 3 . Vital Sign Comment: monitor BP Latest Lui Fall Score: 70 Fall Risk: High Risk Safety Measures: Call light Within Reach, Bed Alarm , Side Rails Side Rails x2, Bed position Low and Locked. Fall Precautions: Yellow Socks Report given to Vickie CARVAJAL.
--- NOTE | 2020-04-11 20:06 | NUR ---
NURSES NOTE: Report received from WEI Santos. Rounds made. Pt in bed, A/OX4, states pain is 8.5/10. Will give meds accordingly. No outward s/s of distress noted. Breathing is even and unlabored on RA. Dressing R hip is clean dry intact. Changed 04/10. All due meds will be administered. Bed at lowest level. Call light within reach. Pt will continue to be monitored.
[2020-04-11] MEDS: TraZODone 50mg tab ORAL SCH ×2 (20:35→21:50)
[2020-04-12 04:00] VITALS: BP 108/77
[2020-04-12] MEDS: HYDROmorphone 1mg/ml Carpuject IVP PRN ×5 (05:47→23:36)
--- NOTE | 2020-04-12 06:58 | NUR ---
NURSE HAND-OFF: Important Events on Shift:[n/a] Patient Status: [stable] Diet: [regular] Pending Orders: [none] Pending Results/Labs:[bmp] Pending MD notification:[none] Latest Vital Signs: Temperature 98.5 , Pulse 96 , B/P 108 /77 , Respiratory Rate 17 , O2 SAT 96 , Nasal Cannula, O2 Flow Rate 3 . Vital Sign Comment: [wnl] Latest Lui Fall Score: 70 Fall Risk: High Risk Safety Measures: Call light Within Reach, Bed Alarm , Side Rails Side Rails x2, Bed position Low and Locked. Fall Precautions: Yellow Socks Report given to [].
[2020-04-12 07:22] LABS: BASOPHILS % (AUTO) 0.8 % (0.0-2.0); EOSINOPHILS % (AUTO) 1.5 % (0.0-3.0); LYMPHOCYTES % (AUTO) 24.4 % (20.0-45.0); MEAN CORPUSCULAR VOLUME 90 FL (80-99); MONOCYTES % (AUTO) 10.4 % (1.0-10.0); NEUTROPHILS % (AUTO) 62.9 % (45.0-75.0); PLATELET COUNT 213 K/UL (150-450); RED CELL DISTRIBUTION WIDTH 15.3 % (11.6-14.8)
--- NOTE | 2020-04-12 07:57 | Orthopedic Progress Note ---
Orthopedic - Progress Note Subjective Symptoms: improved - h&H stable. progressing with PT. pain controlled. good diet Objective Laboratory Tests Test 04/12/20 05:05 White Blood Count 8.0 K/UL (4.8-10.8) Red Blood Count 3.00 M/UL (4.20-5.40) L Hemoglobin 9.0 G/DL (12.0-16.0) L Hematocrit 27.0 % (37.0-47.0) L Mean Corpuscular Volume 90 FL (80-99) Mean Corpuscular Hemoglobin 30.1 PG (27.0-31.0) Mean Corpuscular Hemoglobin Concent 33.4 G/DL (32.0-36.0) Red Cell Distribution Width 15.3 % (11.6-14.8) H Platelet Count 213 K/UL (150-450) Mean Platelet Volume 7.6 FL (6.5-10.1) Neutrophils (%) (Auto) 62.9 % (45.0-75.0) Lymphocytes (%) (Auto) 24.4 % (20.0-45.0) Monocytes (%) (Auto) 10.4 % (1.0-10.0) H Eosinophils (%) (Auto) 1.5 % (0.0-3.0) Basophils (%) (Auto) 0.8 % (0.0-2.0) Last 24 Hour Vital Signs Date Time Temp Pulse Resp B/P (MAP) Pulse Ox O2 Delivery O2 Flow Rate FiO2 04/12/20 04:00 98.5 96 17 108/77 (87) 96 04/11/20 21:00 Room Air 04/11/20 19:02 99 16 96/66 97 04/11/20 19:02 99 16 96/66 (76) 97 04/11/20 18:32 102 16 97/66 96 04/11/20 18:30 102 16 97/66 (76) 96 04/11/20 16:00 98.2 95 16 95/63 (74) 98 04/11/20 11:59 97.9 94 16 93/65 (74) 97 04/11/20 10:19 94 18 108/74 98 04/11/20 10:19 94 18 108/74 (85) 98 04/11/20 09:49 98 18 104/73 98 04/11/20 09:00 104/73 04/11/20 09:00 98 104/73 04/11/20 09:00 Room Air 04/11/20 08:00 98.0 98 18 104/73 (83) 98 Intake and Output 04/11/20 04/12/20 19:00 07:00 Intake Total 1000 ml 480 ml Balance 1000 ml 480 ml Intake Oral 1000 ml 480 ml # Voids 3 3 # Bowel Movements 2 Laboratory Tests Test 04/12/20 05:05 White Blood Count 8.0 K/UL (4.8-10.8) Red Blood Count 3.00 M/UL (4.20-5.40) L Hemoglobin 9.0 G/DL (12.0-16.0) L Hematocrit 27.0 % (37.0-47.0) L Mean Corpuscular Volume 90 FL (80-99) Mean Corpuscular Hemoglobin 30.1 PG (27.0-31.0) Mean Corpuscular Hemoglobin Concent 33.4 G/DL (32.0-36.0) Red Cell Distribution Width 15.3 % (11.6-14.8) H Platelet Count 213 K/UL (150-450) Mean Platelet Volume 7.6 FL (6.5-10.1) Neutrophils (%) (Auto) 62.9 % (45.0-75.0) Lymphocytes (%) (Auto) 24.4 % (20.0-45.0) Monocytes (%) (Auto) 10.4 % (1.0-10.0) H Eosinophils (%) (Auto) 1.5 % (0.0-3.0) Basophils (%) (Auto) 0.8 % (0.0-2.0) Assessment Post-op Diagnosis POD 3 Procedure Performed right femur ORIF and revision hip arthroplasty Plan Plan: discharge plan - to rehab today Tricia Dueñas Apr 12, 2020 07:56
[2020-04-12 08:00] VITALS: BP 98/64
--- NOTE | 2020-04-12 08:00 | NUR ---
NURSE NOTES: Received report from Vickie CARVAJAL. Patient is awake and oriented, in no distress, surgical site dressing clean, dry, intact. Not requesting pain medication at this time, patient requesting scheduled Ativan, will administer as ordered. Fall precautions maintained. Side rails upx3, bed low and locked, call light within reach.
--- NOTE | 2020-04-12 08:03 | NUR ---
HAND OFF: Report given to WEI Cooper.
[2020-04-12] MEDS: Calcium Carbonate 500mg w/Vit D 200iu tab ORAL SCH (08:46)
[2020-04-12] MEDS: Docusate 100mg cap ORAL SCH ×3 (08:47→18:05)
[2020-04-12] MEDS: celeBREX 200mg Cap **SURGERY PATIENTS ONLY ORAL SCH (08:47)
[2020-04-12] MEDS: LORazepam 1mg tab ORAL SCH ×2 (08:47→18:05)
[2020-04-12] MEDS: Multivitamin w/Minerals tab ORAL SCH (08:47)
[2020-04-12] MEDS: Losartan 50mg tab ORAL SCH (08:50)
[2020-04-12 12:00] VITALS: BP 97/70
[2020-04-12] MEDS: HYDROcodone/Acetamin 7.5/325 tab ORAL PRN ×3 (12:06→21:29)
[2020-04-12 16:00] VITALS: BP 124/82
[2020-04-12] MEDS: Milk of Magnesia 30ml Ud ORAL PRN (16:30)
--- NOTE | 2020-04-12 19:12 | NUR ---
NURSE NOTES: COVID swab pending bed placement at [facility] per case management.
--- NOTE | 2020-04-12 19:26 | Internal Med Progress Note ---
Subjective Date of Service: Apr 12, 2020 Physician Name Hans Min Attending Physician Vishnu Davila MD Current Medications Medications (Trade) Dose Ordered Sig/Samara Route PRN Reason Start Time Stop Time Status Last Admin Dose Admin Acetaminophen (Tylenol) 650 mg Q4H PRN ORAL Mild Pain (Pain Scale 1-3) 04/09/20 16:30 05/09/20 16:29 Acetaminophen/ Codeine Phosphate (Tylenol #3) 1 tab Q6H PRN ORAL Moderate Pain (Pain Scale 4-6) 04/09/20 12:45 04/16/20 12:44 04/09/20 19:37 Acetaminophen/ Hydrocodone Bitart (Page 7.5/325) 1 tab Q4H PRN ORAL Moderate Pain (Pain Scale 4-6) 04/09/20 16:30 04/16/20 16:29 04/12/20 16:31 Amlodipine Besylate (Norvasc) 10 mg DAILY ORAL 04/07/20 09:00 05/07/20 08:59 04/09/20 09:24 Aspirin (ASA) 325 mg BID ORAL 04/09/20 18:00 05/24/20 17:59 04/12/20 18:05 Calcium/Vitamin D (OsCal D) 1 tab DAILY ORAL 04/07/20 09:00 07/06/20 08:59 04/12/20 08:46 Celecoxib (CeleBREX) 200 mg DAILY ORAL 04/10/20 09:00 07/09/20 08:59 04/12/20 08:47 Diphenhydramine HCl (Benadryl) 25 mg Q6H PRN ORAL Itching 04/06/20 17:00 05/06/20 16:59 04/07/20 03:39 Docusate Sodium (Colace) 100 mg THREE TIMES A DAY ORAL 04/09/20 18:00 05/09/20 17:59 04/12/20 18:05 Ferrous Sulfate (Feosol) 325 mg THREE TIMES A DAY ORAL 04/09/20 18:00 07/08/20 17:59 04/12/20 18:05 Hydromorphone HCl (Dilaudid) 1 mg Q4H PRN IVP Severe Pain (Pain Scale 7-10) 04/09/20 22:45 04/16/20 16:29 04/12/20 19:07 Lorazepam (Ativan) 2 mg BID ORAL 04/06/20 18:00 04/13/20 17:59 04/12/20 18:05 Losartan Potassium (Cozaar) 50 mg DAILY ORAL 04/07/20 09:00 05/07/20 08:59 04/09/20 09:23 Magnesium Hydroxide (Mom) 30 ml DAILYPRN PRN ORAL Constipation 04/09/20 16:30 05/09/20 16:29 04/12/20 16:30 Multivitamins Therapeutic (Therapeutic Multivitamin) 1 ea DAILY ORAL 04/07/20 09:00 05/07/20 08:59 04/12/20 08:47 Prochlorperazine (Compazine) 10 mg Q6H PRN IVP Nausea & Vomiting 04/09/20 16:30 05/09/20 16:29 Trazodone HCl (Desyrel) 50 mg BEDTIME ORAL 04/06/20 21:00 05/06/20 20:59 04/11/20 21:50 Zolpidem Tartrate (Ambien) 5 mg BEDTIME PRN ORAL Insomnia 04/06/20 17:00 04/13/20 16:59 04/10/20 21:53 Allergies: Coded Allergies: No Known Allergies (Unverified , 12/05/19) ROS Limited/Unobtainable: No Constitutional: Reports: no symptoms HEENT: Reports: no symptoms Cardiovascular: Reports: no symptoms Respiratory: Reports: no symptoms Gastrointestinal/Abdominal: Reports: no symptoms Genitourinary: Reports: no symptoms Neurologic/Psychiatric: Reports: no symptoms Subjective 64 YO F admitted with osteoarthritis right hip. S/P right hip total arthroplasty 04/06/20. S/P revision of right hip tot arthroplasty and ORIF on 04/09/20. Cover for Rhys Sanchez Objective Last Vital Signs Date Time Temp Pulse Resp B/P (MAP) Pulse Ox O2 Delivery O2 Flow Rate FiO2 04/12/20 18:05 98 16 124/82 98 04/12/20 16:00 98.5 04/12/20 09:00 Room Air 04/09/20 18:10 3 Laboratory Tests Test 04/12/20 05:05 White Blood Count 8.0 K/UL (4.8-10.8) Red Blood Count 3.00 M/UL (4.20-5.40) L Hemoglobin 9.0 G/DL (12.0-16.0) L Hematocrit 27.0 % (37.0-47.0) L Mean Corpuscular Volume 90 FL (80-99) Mean Corpuscular Hemoglobin 30.1 PG (27.0-31.0) Mean Corpuscular Hemoglobin Concent 33.4 G/DL (32.0-36.0) Red Cell Distribution Width 15.3 % (11.6-14.8) H Platelet Count 213 K/UL (150-450) Mean Platelet Volume 7.6 FL (6.5-10.1) Neutrophils (%) (Auto) 62.9 % (45.0-75.0) Lymphocytes (%) (Auto) 24.4 % (20.0-45.0) Monocytes (%) (Auto) 10.4 % (1.0-10.0) H Eosinophils (%) (Auto) 1.5 % (0.0-3.0) Basophils (%) (Auto) 0.8 % (0.0-2.0) Intake and Output 04/11/20 04/12/20 19:00 07:00 Intake Total 1000 ml 480 ml Balance 1000 ml 480 ml Intake Oral 1000 ml 480 ml # Voids 3 3 # Bowel Movements 2 Objective General Appearance: WD/WN, no apparent distress, alert, mild distress EENT: PERRL/EOMI, normal ENT inspection Neck: non-tender, normal alignment, supple, normal inspection Cardiovascular: normal peripheral pulses, normal rate, regular rhythm, no gallop/murmur, no JVD Respiratory/Chest: chest wall non-tender, lungs clear, normal breath sounds, no respiratory distress, no accessory muscle use Abdomen: normal bowel sounds, non tender, soft, no organomegaly, no mass Extremities: normal range of motion, non-tender 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 S/P revision right hip tot arthroplasty and ORIF on 04/09/20. Mckayla=Dr Davila. (2) Right hip pain (3) HTN (hypertension) Assessment & Plan: Continue amlodipine and cozaar (4) GERD (gastroesophageal reflux disease) Assessment & Plan: continue protonix (5) Barretts esophagus (6) Anxiety Assessment & Plan: continue ativan (7) Depression, major Assessment & Plan: continue trazodone Assessment/Plan Discharge planning: [place] [facility] Hans Min MD Apr 12, 2020 19:26
--- NOTE | 2020-04-12 19:44 | NUR ---
NURSE HAND-OFF: Important Events on Shift: Pain management, patient walked with PT, d/c planning Patient Status: stable Diet: Regular Pending Orders: N/A Pending Results/Labs: N/A Pending MD notification: N/A Latest Vital Signs: Temperature 98.5 , Pulse 98 , B/P 124 /82 , Respiratory Rate 16 , O2 SAT 98 Vital Sign Comment: VS stable Latest Lui Fall Score: 70 Fall Risk: High Risk Safety Measures: Call light Within Reach, Bed Alarm , Side Rails Side Rails x2, Bed position Low and Locked. Fall Precautions: Yellow Socks Patient Fall Education Report given to Edgar CARVAJAL.
--- NOTE | 2020-04-12 19:45 | NUR ---
NURSE NOTES: Received report from Allison CARVAJAL. Patient is awake, alert, and oriented x4. On room air, breathing is even and unlabored. Complains of right hip pain 8.5/10. Surgical dressing on right hip clean, dry, and intact with no bleeding noted. IV left FA with no signs of bleeding. Pillow support on between legs and one under right leg noted.
[2020-04-12 20:00] VITALS: BP 105/72
[2020-04-12] MEDS: TraZODone 50mg tab ORAL SCH (20:52)
[2020-04-13] VITALS: BP 96/61
[2020-04-13] MEDS: Zolpidem 5mg tab ORAL PRN (00:24)
[2020-04-13 04:00] VITALS: BP 101/73
--- NOTE | 2020-04-13 06:59 | NUR ---
NURSE HAND-OFF: Important Events on Shift: Pain management, D/C planning Patient Status: Stable Diet: Regular Pending Orders: [] Pending Results/Labs:[] Pending MD notification:[] Latest Vital Signs: Temperature 98.2 , Pulse 90 , B/P 101 /73 , Respiratory Rate 16 , O2 SAT 97 , Nasal Cannula, O2 Flow Rate 3 . Vital Sign Comment: VS stable Latest Lui Fall Score: 70 Fall Risk: High Risk Safety Measures: Call light Within Reach, Bed Alarm , Side Rails Side Rails x2, Bed position Low and Locked. Fall Precautions: Yellow Socks Door Sign Patient Fall Education Report will be given to Devin CARVAJAL.
--- NOTE | 2020-04-13 07:45 | NUR ---
NURSE NOTES: Pt lying in bed w/bed in lowest position and call light within reach. Pt A&Ox4, VSS, and in no apparent distress. IV site intact/asymptomatic & H/L'd' and surgical dressing C/D/I. Pt scheduled to be D/C'd today to [facility]. Will continue to monitor.
[2020-04-13 07:53] LABS: BASOPHILS % (AUTO) 0.9 % (0.0-2.0); EOSINOPHILS % (AUTO) 1.6 % (0.0-3.0); HEMATOCRIT 24.8 % (37.0-47.0); HEMOGLOBIN 8.5 G/DL (12.0-16.0); LYMPHOCYTES % (AUTO) 18.1 % (20.0-45.0); MEAN CORPUSCULAR VOLUME 88 FL (80-99); MONOCYTES % (AUTO) 11.5 % (1.0-10.0); NEUTROPHILS % (AUTO) 67.9 % (45.0-75.0); PLATELET COUNT 242 K/UL (150-450); RED BLOOD COUNT 2.82 M/UL (4.20-5.40); RED CELL DISTRIBUTION WIDTH 15.8 % (11.6-14.8); WHITE BLOOD COUNT 7.1 K/UL (4.8-10.8)
[2020-04-13 08:00] VITALS: BP 125/81
[2020-04-13] MEDS: HYDROmorphone 1mg/ml Carpuject IVP PRN ×2 (09:33→15:17)
[2020-04-13] MEDS: celeBREX 200mg Cap **SURGERY PATIENTS ONLY ORAL SCH (09:34)
[2020-04-13] MEDS: Losartan 50mg tab ORAL SCH (09:34)
[2020-04-13] MEDS: Docusate 100mg cap ORAL SCH ×3 (09:35→18:00)
[2020-04-13] MEDS: Calcium Carbonate 500mg w/Vit D 200iu tab ORAL SCH (09:36)
[2020-04-13] MEDS: Multivitamin w/Minerals tab ORAL SCH (09:37)
--- NOTE | 2020-04-13 09:55 | NUR ---
HAND-OFF: Report given to WEI Garnica. Endorsed to f/u w/CM regarding D/C to [facility] and to swab pt for COVID.
--- NOTE | 2020-04-13 09:55 | NUR ---
NURSE NOTES:RECEIVED REPORT FR. ALICIA CARVAJAL RE:CONTINUITY OF CARE.DISCUSSED WITH PT.RE:PLAN OF CARE,AND SWABBING FOR COVID.VERBALIZED WITH UNDERSTANDING.RIGHT HIP DRSNG.C/D/I.WITH GOOD BILATERAL CIRCULATION ON LOWER EXTREMITIES,REFUSED FOR ABDUCTION PILLOW INSPITE OF TELLING HER THE BENEFITS OF USING,STATED"MY PHYSICAL THERAPY SAID LONG I HAVE A PILLOW IN BETWEEN LEGS"WAS CURRENTLY MEDICATED BY PREVIOUS RN.WILL CONTINUE PLAN OF CARE.
--- NOTE | 2020-04-13 10:05 | NUR ---
NURSE NOTES:SPOKE TO MICA (EMPERATRIZ)AND ROSS RE:D/C ORDER TO [facility].
--- NOTE | 2020-04-13 10:15 | NUR ---
*-*DISCHARGE PLANNING*-* PATIENT HAS BEEN REFERRED TO: [facility]/ [facility] P: [phone] S/W NIKHIL CHAN , WAITING FOR INTER FACILITY FORMS TO BE COMPLETELY FILLED OUT, TO GIVE ROOM AVAILABLY
[2020-04-13] MEDS: Milk of Magnesia 30ml Ud ORAL PRN (10:25)
[2020-04-13] MEDS: LORazepam 1mg tab ORAL SCH (10:26)
--- NOTE | 2020-04-13 11:54 | NUR ---
PT NOTE Attempted to see patient for second treatment. Patient declined to participate with PT treatment, c/o R hip pain and R thigh swelling. Danika CARVAJAL notified, will follow.
[2020-04-13 12:00] VITALS: BP 113/75
[2020-04-13] MEDS: HYDROcodone/Acetamin 7.5/325 tab ORAL PRN (12:12)
--- NOTE | 2020-04-13 14:00 | NUR ---
*-*DISCHARGE PLANNED*-* PATIENT HAS BEEN ACCEPTED AND WILL BE DISCHARGED TO: [facility]/ [facility] p: [phone] NURSE TO NURSE REPORT ROOM# 401 [facility] TRANSPORTATION SET FOR 3PM S/W YAMILEX [id number]. S/W PATIENTS FAMILY NIKHLI SAAVEDRA, WHO IS IN AGREEMENT WITH DISCHARGE.
--- NOTE | 2020-04-13 14:04 | NUR ---
NURSE NOTES:REPORT GIVEN TO NADEGE CARVAJAL TO [facility] RE:TRANSFER REPORT.
--- NOTE | 2020-04-13 14:51 | NUR ---
CASE MANAGEMENT:REVIEW 04/12/20 SI;POD #3 RT HIP ARTHROPLASTY REVISION AND ORIF 98.0 99 18 93/65 97% ON RA H/H 9.0/27.0 IS;NORCO PO Q6 PRN CELEBREX PO QD DILAUDID IV Q4 PRN ASA PO BID MED SURG STATUS DCP; FROM HOME DC PLANNING TO ARU ~ [facility]
--- NOTE | 2020-04-13 15:00 | NUR ---
NURSE NOTES:MESSAGE LEFT ON DR. AMANDA,RE:NEEDS RECON MED,PT BEING TRASFERRED TO [facility],NO RETURN CALL.PLACED A CALL TO ALLYSSA CORTES AND ALSO MADE AWARE RE:HGB.8.5/HCT.24.8,OKAY TO CONTINUE HOME MEDS.
--- NOTE | 2020-04-13 15:17 | NUR ---
NURSE NOTES:MEDICATED WITH DILAUDID 1MG IV FOR PAIN 11/30,WITH AFFORDED RELIEF POST 30 MINUTES.NEEDS WELL ANTICIPATED,PT.IN GOOD SPIRIT SO FAR AND COMPLIANT.
[2020-04-13 16:00] VITALS: BP 101/69
--- NOTE | 2020-04-13 17:26 | Internal Med Progress Note ---
Subjective Date of Service: Apr 13, 2020 Physician Name Hans Min Attending Physician Vishnu Davila MD Current Medications Medications (Trade) Dose Ordered Sig/Samara Route PRN Reason Start Time Stop Time Status Last Admin Dose Admin Acetaminophen (Tylenol) 650 mg Q4H PRN ORAL Mild Pain (Pain Scale 1-3) 04/09/20 16:30 05/09/20 16:29 Acetaminophen/ Codeine Phosphate (Tylenol #3) 1 tab Q6H PRN ORAL Moderate Pain (Pain Scale 4-6) 04/09/20 12:45 04/16/20 12:44 04/09/20 19:37 Acetaminophen/ Hydrocodone Bitart ([place] 7.5/325) 1 tab Q4H PRN ORAL Moderate Pain (Pain Scale 4-6) 04/09/20 16:30 04/16/20 16:29 04/13/20 12:12 Amlodipine Besylate (Norvasc) 10 mg DAILY ORAL 04/07/20 09:00 05/07/20 08:59 04/13/20 09:36 Aspirin (ASA) 325 mg BID ORAL 04/09/20 18:00 05/24/20 17:59 04/13/20 09:37 Calcium/Vitamin D (OsCal D) 1 tab DAILY ORAL 04/07/20 09:00 07/06/20 08:59 04/13/20 09:36 Celecoxib (CeleBREX) 200 mg DAILY ORAL 04/10/20 09:00 07/09/20 08:59 04/13/20 09:34 Diphenhydramine HCl (Benadryl) 25 mg Q6H PRN ORAL Itching 04/06/20 17:00 05/06/20 16:59 04/07/20 03:39 Docusate Sodium (Colace) 100 mg THREE TIMES A DAY ORAL 04/09/20 18:00 05/09/20 17:59 04/13/20 12:12 Ferrous Sulfate (Feosol) 325 mg THREE TIMES A DAY ORAL 04/09/20 18:00 07/08/20 17:59 04/13/20 12:11 Hydromorphone HCl (Dilaudid) 1 mg Q4H PRN IVP Severe Pain (Pain Scale 7-10) 04/09/20 22:45 04/16/20 16:29 04/13/20 15:17 Lorazepam (Ativan) 2 mg BID ORAL 04/06/20 18:00 04/13/20 17:59 04/13/20 10:26 Losartan Potassium (Cozaar) 50 mg DAILY ORAL 04/07/20 09:00 05/07/20 08:59 04/13/20 09:34 Magnesium Hydroxide (Mom) 30 ml DAILYPRN PRN ORAL Constipation 04/09/20 16:30 05/09/20 16:29 04/13/20 10:25 Multivitamins Therapeutic (Therapeutic Multivitamin) 1 ea DAILY ORAL 04/07/20 09:00 05/07/20 08:59 04/13/20 09:37 Prochlorperazine (Compazine) 10 mg Q6H PRN IVP Nausea & Vomiting 04/09/20 16:30 05/09/20 16:29 Trazodone HCl (Desyrel) 50 mg BEDTIME ORAL 04/06/20 21:00 05/06/20 20:59 04/12/20 20:52 Allergies: Coded Allergies: No Known Allergies (Unverified , 12/05/19) ROS Limited/Unobtainable: No Constitutional: Reports: no symptoms HEENT: Reports: no symptoms Cardiovascular: Reports: no symptoms Respiratory: Reports: no symptoms Gastrointestinal/Abdominal: Reports: no symptoms Genitourinary: Reports: no symptoms Neurologic/Psychiatric: Reports: no symptoms Subjective 64 YO F admitted with osteoarthritis right hip. S/P right hip total arthroplasty 04/06/20. S/P revision of right hip tot arthroplasty and ORIF on 04/09/20. Cover for Int Kp-Dr Sanchez Objective Last Vital Signs Date Time Temp Pulse Resp B/P (MAP) Pulse Ox O2 Delivery O2 Flow Rate FiO2 04/13/20 16:00 98.9 18 101/69 (80) 94 04/13/20 12:00 92 04/13/20 09:00 Room Air 04/09/20 18:10 3 Laboratory Tests Test 04/13/20 06:15 White Blood Count 7.1 K/UL (4.8-10.8) Red Blood Count 2.82 M/UL (4.20-5.40) L Hemoglobin 8.5 G/DL (12.0-16.0) L Hematocrit 24.8 % (37.0-47.0) L Mean Corpuscular Volume 88 FL (80-99) Mean Corpuscular Hemoglobin 30.1 PG (27.0-31.0) Mean Corpuscular Hemoglobin Concent 34.2 G/DL (32.0-36.0) Red Cell Distribution Width 15.8 % (11.6-14.8) H Platelet Count 242 K/UL (150-450) Mean Platelet Volume 7.3 FL (6.5-10.1) Neutrophils (%) (Auto) 67.9 % (45.0-75.0) Lymphocytes (%) (Auto) 18.1 % (20.0-45.0) L Monocytes (%) (Auto) 11.5 % (1.0-10.0) H Eosinophils (%) (Auto) 1.6 % (0.0-3.0) Basophils (%) (Auto) 0.9 % (0.0-2.0) Microbiology Date/Time Source Procedure Growth Status 04/13/20 10:45 Nasopharynx SARS-CoV-2 RdRp Gene Assay - Final Complete Intake and Output 04/12/20 04/13/20 19:00 07:00 Intake Total 1000 ml 480 ml Balance 1000 ml 480 ml Intake Oral 1000 ml 480 ml # Voids 2 2 Objective General Appearance: WD/WN, no apparent distress, alert, mild distress EENT: PERRL/EOMI, normal ENT inspection Neck: non-tender, normal alignment, supple, normal inspection Cardiovascular: normal peripheral pulses, normal rate, regular rhythm, no gallop/murmur, no JVD Respiratory/Chest: chest wall non-tender, lungs clear, normal breath sounds, no respiratory distress, no accessory muscle use Abdomen: normal bowel sounds, non tender, soft, no organomegaly, no mass Extremities: normal range of motion, non-tender 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 S/P revision right hip tot arthroplasty and ORIF on 04/09/20. Orhto=Dr Davila. (2) Right hip pain (3) HTN (hypertension) Assessment & Plan: Continue amlodipine and cozaar (4) GERD (gastroesophageal reflux disease) Assessment & Plan: continue protonix (5) Barretts esophagus (6) Anxiety Assessment & Plan: continue ativan (7) Depression, major Assessment & Plan: continue trazodone Assessment/Plan [facility] Hans Min MD Apr 13, 2020 17:26
--- NOTE | 2020-04-13 18:00 | NUR ---
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
--- NOTE | 2020-04-14 15:42 | Discharge Summary ---
Discharge Summary Hospital Course Date of Admission Apr 06, 2020 at 06:33 Date of Discharge Apr 13, 2020 at 18:00 Admitting Diagnosis Right hip end stage arthritis Reason for Hospitalization: elective surgery HPI Lorraine Santamaria is a 64 year old female who was admitted on Apr 06, 2020 at 06:33 for Primary Oa Of Right Hip Consultations Dr Sanchez IM Procedures s/p 04/06/[address] Davila Right total hip arthroplasty using [employer] and Nephew system, size 52 mm R3 hemispheric cup with two dome screws of 120 mm and 125 mm, size 9 Anthology stem, standard offset with a 36 mm cobalt chromium head with 0 neck length. s/p 04/[address] Davila 1. Right hip revision total hip arthroplasty using Greenwood and Nephew revision femoral sleeveless component size 22 mm diameter, 240 mm length, high offset fluted stem with a 36 mm -3 head traversing the fracture at least 10 cm distally. 2. Open reduction internal fixation of the femur with 4 Greenwood and Nephew cerclage wires tensioned to 100 newtons. Hospital Course status post right total hip arthroplasty 04/06 for end-stage right hip arthritis initially IV fluids s/p perioperative antibiotic neurovascular status closely monitored, stable incision clean ,dry and intact pain management was addressed remained hemodynamically stable patient started to work with a physical therapist patient reported increased pain X ray of the right hip revealed interim fracture of the proximal right femur CT scan of the right hip demonstrated acute proximal right femur fracture, extending almost as far distally as the tip of the femoral stem of recently placed prosthesis. surgeon clsoely reviewed imaging. noted spiral fracture of the femur standing beyond the prosthesis implant; subsidence noted findings were discussed with patient with plan for revision of right hip a rthroplasty and open reduction internal fixation of the fracture patient consented to surgery patient received transfusion of two units of packed red blood cells due to hemoglobin 8.6 in anticipation of the surgery and the blood loss patient subsequently undergone on 04/09 revision of right hip hemiarthroplasty and open reduction internal fixation of the femur patient remained neurologically intact postoperative x-ray showed good position of the prosthesis; fracture reduced well and stabilized with 4 cables partial weightbearing on the right lower extremity continued patient was working with physical therapist with toe to touch weightbearing right lower extremity pain management was addressed ; pain was controlled fall precautions maintained DVT prophylaxis provided use of incentive spirometry was encouraged while in the bed tolerated diet , IV fluids discontinued GI prophylaxis provided voided freely bowel regimen instituted patient was stable for discharge to [facility] for further management FINAL DIAGNOSES Right hip end stage arthritis s/p total Right hip arthroplasty 04/06 s/p Right femur ORIF and revision hip arthroplasty 04/09 Discharge Discharge Vital Signs Last Vital Signs Date Time Temp Pulse Resp B/P (MAP) Pulse Ox O2 Delivery O2 Flow Rate FiO2 04/13/20 16:00 98.9 18 101/69 (80) 94 04/13/20 12:00 92 04/13/20 09:00 Room Air 04/09/20 18:10 3 Discharge Disposition Patient was discharged to [facility](62) Discharge Instructions Discharge Instructions Special Instructions I have been assigned to complete a D/C Summary on this account. I was not involved in the patient management Sneha Centeno NP Apr 14, 2020 15:42
== END 2020-04-13 18:00 | disposition short-term general hospital (02) | DRG 466 ==
LOC: SDSOVERFLO 06:33 → 3E 12:45
PROC: 0SR90JZ Replacement of Right Hip Joint with Synthetic Substitute, Open Approach (ICD-10-PCS; principal; 2020-04-06 07:00)
PROC: 0QS604Z Reposition Right Upper Femur with Internal Fixation Device, Open Approach (ICD-10-PCS; 2020-04-09)
PROC: 0SW90JZ Revision of Synthetic Substitute in Right Hip Joint, Open Approach (ICD-10-PCS; 2020-04-09)
DX: M16.11 Unilateral primary osteoarthritis, right hip (principal); S72.114A Nondisplaced fracture of greater trochanter of right femur, initial encounter for closed fracture; M97.01XA Periprosthetic fracture around internal prosthetic right hip joint, initial encounter; F33.8 Other recurrent depressive disorders; K22.70 Barrett's esophagus without dysplasia; I10 Essential (primary) hypertension; D64.9 Anemia, unspecified; E55.9 Vitamin D deficiency, unspecified; F41.9 Anxiety disorder, unspecified; G47.00 Insomnia, unspecified; K21.9 Gastro-esophageal reflux disease without esophagitis; M25.561 Pain in right knee; H61.20 Impacted cerumen, unspecified ear; K59.00 Constipation, unspecified; X58.XXXA Exposure to other specified factors, initial encounter; Y92.9 Unspecified place or not applicable
CPT/HCPCS: 36415; 72170; 76000; 80048; 85025; 86850; 86900; 86901; 86920; 87081; 94003; 94150; J2250; J2405; U0002